=== PATIENT | female | born 1940 | race Caucasian/White ===

== ENCOUNTER 2016-11-10 09:01 | Outpatient (CLI) | payer MEDICARE, OTHER ==
[2015-09-04 06:01] VITALS: BMI 28.3
[~2016-11-10 09:01] MED LIST: ASPIRIN325 MG PO; BETAPACE 80 MG80 MG PO; COZAAR50 MG PO; CRESTOR10 MG PO; ECOTRIN81 MG PO; EFFIENT10 MG PO; IMDUR60 MG PO; ISOSORBIDE MONO60 M1 PO; Imdur PO; K-TAB10 MEQ PO; KLOR-CON 1010 MEQ PO; LASIX20 MG PO; LASIX40 MG PO; NORVASC2.5 MG PO; NORVASC5 MG PO; POTASSIUM CHLO10 ME1 PO; PREDNISONE20 MG PO; PRILOSEC20 MG PO; VITAMIN D10000 UNI1 PO; ZANTAC150 MG PO
== END 2016-11-10 11:10 ==
LOC: D.MAMMO 09:01
DX: Z12.31 Encounter for screening mammogram for malignant neoplasm of breast (principal)

== ENCOUNTER → 2018-04-05 09:23 | Outpatient (CLI) | payer MEDICARE, OTHER ==
[2015-09-04 06:01] VITALS: BMI 28.3
== END | disposition home or self-care (01) ==
LOC: D.MRI 09:23
DX: R41.3 Other amnesia (principal)

== ENCOUNTER → 2018-04-06 08:47 | Outpatient (CLI) | payer MEDICARE, OTHER ==
[2015-09-04 06:01] VITALS: BMI 28.3
--- NOTE | ~2018-04-06 | ST ---
PATIENT:ELVIN MAYS MEDICAL RECORD: [id number] SEX: F LOCATION:[facility] ORDER #: ADMISSION DATE: 04/06/18 AGE OF PATIENT: 77 REFERRING PHYSICIAN: INTERPRETING PHYSICIAN: ISAAC MEDRANO MD DATE OF SERVICE: 04/06/2018 PROCEDURE: Nuclear stress test. INDICATIONS: Angina, coronary artery disease, shortness of breath, hypertension. She was exercised on standard Lexiscan protocol with 33 mCi of sestamibi injected at peak stress. Rest images were done previously with 11 mCi. FINDINGS: Gated SPECT reveals preserved ejection fraction at 87% with good wall motion and thickening and brightening throughout all segments. SPECT imaging Cardiolite was used as myocardial fusion agent. There is homogeneous uptake throughout all segments at rest and stress with no evidence of inducible ischemia or previous infarction. OVERALL IMPRESSION: 1. This is a normal nuclear stress test with no evidence of inducible ischemia or previous infarction. 2. Gated SPECT reveals a preserved ejection fraction at 87%. In this patient with ongoing symptomatology, the current scan does not suggest the presence of hemodynamically significant coronary artery disease. Evaluate noncardiac etiology of chest pain. TRANSINT:[id number] Voice Confirmation ID: [id number] DOCUMENT ID: [id number] ISAAC MEDRANO MD CC: GEOVANNY HELM [id number] DICTATION DATE: 04/06/18 1541 ELECTRICAL ACCESSORIES I ASSEMBLER: 04/07/18 0352 DEP CLI 04/06/[address] [address]
== END | disposition home or self-care (01) ==
LOC: D.HCCARDIO 08:47
DX: I25.10 Atherosclerotic heart disease of native coronary artery without angina pectoris (principal)

== ENCOUNTER 2018-11-20 10:48 | Outpatient (CLI) | payer MEDICARE, OTHER ==
[~2018-11-20] VITALS: Ht 152.4 cm; Wt 65.9 kg
--- NOTE | ~2018-11-20 | HEMODYNAMI ---
PATIENT:ELVIN MAYS MEDICAL RECORD: [id number] : 40 LOCATION:D.CAT ADMISSION DATE: 11/20/18 Generatedon:11/20/201812:58 Patient name: ELVIN MAYS Patient #: [id number] SSN: : 1940 Date of study: 11/20/2018 Page: Of Hemodynamic Procedure Report Patient Data Patient Demographics Procedure consent was obtained First Name: ELVIN Gender: Female Last Name: DAVON : 1940 Middle Initial: C Age: 78 year(s) Patient #: [id number] Race: Ethnicity: or Additional ID: [id number] Contact details [address]: [address] [place] [address] rd State: [place] City: [place] Zip code: [address] Past Medical History History of disease Date Diagnosis Comments CAD Hypertension Allergies Allergen Reaction Date Comments Reported Other 09/04/2015 plavix,contrast,morphine,clopidogrel allergy bisulfate Admission Admission Data Admission Date: 11/20/2018 Admission Time: 10:48 Procedure Procedure Types Cath Procedure Diagnostic Procedure Cardioversion External Procedure Description Procedure Date Procedure Date: 11/20/2018 Procedure Start Time: 12:33 Procedure End Time: 12:57 Procedure Staff Name Function Rm Hyman MD Performing Physician Steven Gama RT Monitor Alina Zacarias RN Nurse Michael Boone CRNA Additional personnel Procedure Medications Medication Administration Route Dosage 0.9% NaCl I.V. 100 ml/hr Oxygen etCO2 Nasal cannula 2 l/min Refer to Anesthesia Notes for Sedation Medications Hemodynamics Rest Heart Rate: 42 (bpm) Snapshots Pre Cath Intra NCS Post Cath Vital Signs Time Heart Resp SPO2 etCO2 NIBP (mmHg) Rhythm Pain Sedation Rate (ipm) (%) (mmHg) Status Level (bpm) 12:23:13 84 25 97 35 125/67(93) A-Fib 0 (11) 10(A) , No pain 12:27:25 72 15 99 36 120/79(112) A-Fib 0 (11) 10(A) , No pain 12:32:24 40 21 100 23.2 75/41(49) SB 0 (11) 5(A) , No pain 12:35:04 40 30 99 13.5 81/67(78) SB 0 (11) 5(A) , No pain 12:38:49 42 22 99 19.7 77/46(60) SB 0 (11) 5(A) , No pain 12:41:47 37 29 96 1.5 69/30(52) SB 0 (11) 5(A) , No pain 12:45:42 36 29 98 35.2 66/39(51) SB 0 (11) 5(A) , No pain 12:49:50 52 10 94 13.5 72/39(68) SB 0 (11) 10(A) , No pain 12:53:30 54 24 96 16.5 113/69(101) SB 0 (11) 10(A) , No pain 12:56:42 54 26 96 0 124/69(100) SB 0 (11) 10(A) , No pain Medications Time Medication Route Dose Verified Delivered Reason Notes Effective ness by by 12:25:44 0.9% NaCl I.V. 100 Rm Alina ml/hr Yenni Zacarias RN 12:25:50 Oxygen etCO2 2 Rm Fuller used for Nasal l/min Yenni Zacarias procedure cannula RN 12:25:55 Refer to Rm Abdalla Anesthesia Yenni Hyman MD Notes for Sedation Medications Procedure Log Time Note 12:19:49 Diagnostic Cath Status : Cardioversion 12:21:11 Time tracking: Regular hours (M-F 7:00 - 5:00) 12:21:17 Plan of Care:Hemodynamics will remain stable., Cardiac rhythm will remain stable., Comfort level will be maintained., Respiratory function will remain adequate., Patient/ family verbilizes understanding of procedure., Procedure tolerated without complication., Recovers from procedure without complications.. 12:21:24 Patient received from Pre/Post Procedure Room to CCL 1 Alert and oriented. Tansferred to table in Supine position. 12:21:29 Signed procedure consent form obtained from patient. 12:21:30 Warm blankets applied, and evangelina hugger turned on for patient comfort. 12:21:31 Correct patient and procedure confirmed by team. 12:21:32 ECG and BP/O2 sat monitors applied to patient. 12:22:06 Vital chart was started 12:22:14 Rhythm: atrial fibrillation 12:22:45 H&P Date Dictated: 10/31/2018 Within 30 days and on chart.. 12:22:47 Pre-procedure instructions explained to patient. 12:22:48 Pre-op teaching completed and patient verbalized understanding. 12:22:53 Patient NPO since Midnight. 12:24:10 ----Pre-sedation anethsthesia assessment.---- 12:24:12 Previous problem with sedation/anesthesia? No ? 12:24:15 Snore? Yes 12:24:17 Sleep apnea? No 12:24:19 Deviated septum? No 12:24:20 Opens mouth fully? Yes 12:24:21 Sticks out tongue? Yes 12:24:25 Airway obstruction? No ? 12:24:28 Dentures? No ? 12:24:53 IV patent on arrival in left forearm with 0.9% NaCl at [facility]. 12:25:44 0.9% NaCl 100 ml/hr I.V. was administered by Alina Zacarias RN; ; 12:25:50 Oxygen 2 l/min etCO2 Nasal cannula was administered by Alina Zacarias RN; used for procedure; 12:25:55 Refer to Anesthesia Notes for Sedation Medications was administered by Rm Hyman MD; ; 12:26:34 ------Cardioversion------ 12:26:35 Quick combo pads placed on patients chest and back. 12:27:04 Michael Boone CRNA present and monitoring patient for TIVA. 12:27:15 Alarms reviewed by Jenn Petersen 12:28:00 --------ALL STOP TIME OUT------ 12:28:01 Final Timeout: patient, procedure, and site verified with staff and physician. All members of the team are in agreement. 12:28:20 Defibrillator synced and charged to 275 Joules. 12:28:25 Sedation plan: TIVA Medication:Propofol 12:29:25 Shock delivered. 12:30:58 Full Disclosure recording started 12:31:36 Fire Safety Assessment: C--Open oxygen or nitrous oxide is being used. 12:31:41 Physical assessment completed. ASA score P 2 - A patient with mild systemic disease as per Rm Hyman MD. 12:33:58 Procedure started. 12:34:38 Procedure ended.(Physican Out) 12:34:50 Baseline sample Acquired. 12:49:29 Post procedure rhythm: sinus bradycardia 12:49:34 Patient needs reinforcement of post procedure teaching. 12:55:50 Procedure and supply charges have been captured, reviewed, submitted and are correct. 12:55:51 Vital chart was stopped 12:55:54 See physician's report for complete and final results. 12:55:58 Report given to Pre/Post Procedure Room. 12:57:37 Patient transfered to Pre/Post Procedure Room with Stretcher. 12:57:40 Procedure ended. 12:57:40 Full Disclosure recording stopped 12:57:46 End room use (Document Last) Signature Audit Win[place] Stage Time Signature Unsigned Intra-Procedure 11/20/2018 Steven Gama 12:58:10 PM RT(R) (CV) Signatures Performing Physician : Signature : Rm Hyman MD Date : Time : Monitor : Steven Gama RT Signature : Date : Time : Nurse : Alina Zacarias RN Signature : Date : Time : [address] [address] [place] [address]
[2018-11-20] MEDS ORDERED: BAYER CHEWABLE81 MG PO (11:07)
[2018-11-20] MEDS ORDERED: BETAPACE 80 MG80 MG PO (11:08)
[2018-11-20] MEDS ORDERED: XARELTO10 MG PO (11:09)
[2018-11-20 11:18] VITALS: BP 133/74; Ht 152.4 cm; Wt 65.9 kg
[2018-11-20 11:28] LABS: BASOPHILS 0.5 % (0-2); EOSINOPHILS 1.4 % (0-7); HEMATOCRIT 41.8 % (36.0-48.0); HEMOGLOBIN 14.2 g/dL (12-16); IMMATURE GRANULOCYTES 0.3 % (0-5); LYMPHOCYTES 17.2 % (15-50); MCH 31.3 pg (26.0-34.0); MCV 92.1 fL (80.0-100.0); MEAN PLATELET VOLUME 9.1 fL (7.4-10.4); MONOCYTES 9.4 % (2-11); NEUTROPHILS 71.2 % (40-80); PLATELET COUNT 249 10x3/uL (130-400); RBC 4.54 10x6/uL (4.00-5.40); RDW 14.7 % (11.5-14.5); WBC 7.9 10x3/uL (4.8-10.8)
[2018-11-20 11:38] LABS: INR 1.36 (0.85-1.17); PROTIME 16.2 SECONDS (11.6-15.0)
[2018-11-20 11:40] LABS: CALC OSMOLALITY 263 mosm/kg (275-300); CALCIUM 9.5 mg/dL (8.5-10.1); CARBON DIOXIDE 33.4 mmol/L (21.0-32.0); CHLORIDE - SERUM 95 mmol/L (98-107); CREATININE - SERUM 0.7 mg/dL (0.6-1.3); GLUCOSE 103 mg/dL (74-106); POTASSIUM - SERUM 4.4 mmol/L (3.5-5.1); SODIUM 132 mmol/L (136-145); UREA NITROGEN 10 mg/dL (7-18); eGFR NON AFRICAN AMERICAN 86 mL/min (90-120)
--- NOTE | 2018-11-20 13:05 | NUR ---
PT RECEIVED VIA STRETCHER FROM AIRCRAFT TECHNICIAN POST CARDIOVERSION. PT IS MORE CONFUSED THAN FROM ADMISSION PER Sonia COOMBS RN. SHE BELIEVES IT IS DUE TO THE ANSETHESIA, BUT PT DOES HAVE SOME CONFUSION FROM HER PREVIOUS STROKE BUT IS MORE AWARE NOW THAT SHE IS IN RECOVERY. SHE IS ORIENTED TO PLACE AND TIME. HR 47, BP 83/45, O2 SAT 96 ON 2L/NC. IV PATENT INFUSING VIA ORDERS. CALL LIGHT IN REACH, FAMILY AT BEDSIDE.
--- NOTE | 2018-11-20 13:30 | NUR ---
PT AWAKE, RESTING COMFORTABLY. HR 45. PT DENIES PAIN OR DISCOMFORT, OFFERED SANDWICH TRAY, PT STATES NOT HUNGRY AT THIS TIME. CALL LIGHT IN REACH, FAMILY AT BEDSIDE
--- NOTE | 2018-11-20 13:45 | NUR ---
PT RESTING COMFORTABLY, DENIES PAIN OR NEEDS AT THIS TIME. FAMILY REMAINS AT BEDSIDE. VSS. CALL LIGHT IN REACH. DISCHARGE INSTRUCTIONS REVIEWED W PT AND FAMILY, ALL VERBALIZED UNDERSTANDING.
--- NOTE | 2018-11-20 14:05 | NUR ---
IV REMOVED W CATH INTACT, MONITORS REMOVED AND PT UP TO DRESS FOR DISCHARGE W ASSIST FROM DAUGHTER.
--- NOTE | 2018-11-20 14:10 | NUR ---
PT DISCHARGED VIA WC TO PRIVATE VEHICLE W AND DAUGHTER WITH ALL BELONGINGS.
--- NOTE | 2018-11-27 11:09 | OP ---
PATIENT NAME: ELVIN MAYS MEDICAL RECORD: [id number] :40 LOCATION:D.CAT ADMISSION DATE: SURGEON: ISAAC MEDRANO MD DATE OF OPERATION: 11/20/2018 PROCEDURE: DC cardioversion. INDICATION: Atrial fibrillation. PROCEDURE IN DETAIL: IV conscious sedation was per anesthesia. Continuous heart rate, O2 saturation, blood pressure monitoring all undertaken, all of which remained stable. She received 1 shock restoring sinus rhythm. OVERALL IMPRESSION: Successful DC cardioversion from atrial fibrillation to sinus rhythm. TRANSINT:[id number] Voice Confirmation ID: [id number] DOCUMENT ID: [id number] ISAAC MEDRANO MD at 1109 CC: [id number] DICTATION DATE: 11/20/18 1237 BICYCLE REPAIRER: 11/20/18 1257 DEP CLI 11/20/18 [id number] [place] [address]
== END 2018-11-20 14:10 | disposition home or self-care (01) ==
LOC: D.CATH 10:48
PROVIDERS: ATTEND Internal Medicine Interventional Cardiology
DX: I48.91 Unspecified atrial fibrillation (principal)

== ENCOUNTER → 2018-12-10 15:45 | Outpatient (CLI) | payer MEDICARE, OTHER ==
[2018-11-20 11:18] VITALS: BMI 28.3
[~2018-12-10 15:45] MED LIST changes: +ATIVAN0.5 MG PO; +BAYER CHEWABLE81 MG PO; +HYDROCODON-ACE1 EAC7 PO; +K-DUR20 MEQ PO; +LEVOFLOXAC750 MG/150 IV; +MAXIPIME 2 GM/D52 G1 IV; +MELATONIN 3 MG1 TAB PO; +VANCOMYCIN 1 GM/1 G1 IV; +XARELTO10 MG PO
== END | disposition home or self-care (01) ==
LOC: D.RAD 15:45
PROVIDERS: ATTEND Nurse Practitioner
DX: I48.0 Paroxysmal atrial fibrillation (principal); R06.00 Dyspnea, unspecified

== ENCOUNTER 2018-12-14 10:18 | Inpatient (IN) | payer MEDICARE, OTHER ==
[2018-12-14] VITALS (7 sets, daily range): BP systolic 126–176; BP diastolic 54–79; BMI 29.7
[~2018-12-14] VITALS: Ht 152.4 cm; Wt 63.2 kg
--- NOTE | ~2018-12-14 | HEMODYNAMI ---
PATIENT:ELVIN MAYS MEDICAL RECORD: [id number] : 40 LOCATION:[facility] [place] [facility] D.[address]# [id number] ADMISSION DATE: 12/14/18 Generatedon:12/18/201815:58 Patient name: ELVIN MAYS Patient #: [id number] SSN: : Date of study: 12/18/2018 Page: Of Hemodynamic Procedure Report Patient Data Patient Demographics Procedure consent was obtained First Name: ELVIN Gender: Female Last Name: DAVON : 1940 [facility] Initial: C Age: 78 year(s) Patient #: [id number] Race: Ethnicity: or Additional ID: [id number] Contact details [address]: [address] [place] [address] rd State: [place] City: [place] Zip code: [address] Past Medical History History of disease Date Diagnosis Comments CAD Hypertension Allergies Allergen Reaction Date Comments Reported Other 09/04/2015 plavix,contrast,morphine,clopidogrel allergy bisulfate Other 12/16/2018 IODINE DYE, MORPHINE, PLAVIX allergy Other 12/18/2018 IODINE, CLOPIDIGREL, MORPHINE allergy Admission Admission Data Admission Date: 12/14/2018 Admission Time: 13:04 Room #: [facility]7 Weight (lbs.): 142 Weight (kg.): 64.41 Lab Results Lab Result Date: 12/16/2018 Lab Result Time: 0:00 Biochemistry Name Units Result Min Max BUN mg/dl 9 --(*---)-- 7 18 Creatinine mg/dl 0.6 --(*---)-- 0.6 1.3 CBC Name Units Result Min Max Hematocrit % 39.5 -*(----)-- 42 54 Hemoglobin g/dl 12.8 -*(----)-- 13.5 17.5 Procedure Procedure Types Cath Procedure Diagnostic Procedure Sedation Charges Moderate Sedation up to 15 minutes Procedure Description Procedure Date Procedure Date: 12/18/2018 Procedure Start Time: 15:36 Procedure End Time: 15:58 Procedure Staff Name Function Zach Patel MD Performing Physician Jayjay Delgado MD Assisting physician Tess Moy RT Monitor Finesse Gomez RT Scrub Debora Connolly RT Scrub Alina Zacarias RN Nurse Procedure Data Cath Procedure Contrast Material Contrast Material Type Amount (ml) Isovue 300 20 Estimated blood loss: 10 ml Procedure Complications No complications Procedure Medications Medication Administration Route Dosage 0.9% NaCl I.V. 100 ml/hr Oxygen etCO2 Nasal cannula 2 l/min Lidocaine 1% added to field 20 Ancef (1Gm/50ml NS) I.V.P.B 1 g Ancef Irrigation Topical 1 g (1gm/500ml NS) Versed I.V. 2 mg Fentanyl I.V. 50 mcg Fentanyl I.V. 25 mcg Benadryl I.V. 50 mg Solumedrol I.V. 125 mg Hemodynamics Rest HGB: 12.8 (g/dl) Heart Rate: 109 (bpm) Snapshots Pre Cath Intra NCS Post Cath Vital Signs Time Heart Resp SPO2 etCO2 NIBP (mmHg) Rhythm Pain Sedation Rate (ipm) (%) (mmHg) Status Level (bpm) 15:26:14 105 17 98 31.4 124/83(97) A-Fib 0 (11) 10(A) , No pain 15:30:22 103 18 98 16.4 113/72(104) A-Fib 0 (11) 10(A) , No pain 15:34:30 101 20 97 24.7 99/61(81) A-Fib 0 (11) 10(A) , No pain 15:38:30 118 20 98 15.7 115/68(91) A-Fib 0 (11) 10(A) , No pain 15:43:25 111 27 98 31.4 130/68(101) A-Fib 0 (11) 9(A) , No pain 15:47:34 101 26 98 27 120/67(96) A-Fib 0 (11) 9(A) , No pain 15:51:40 125 25 97 2.2 123/74(93) A-Fib 0 (11) 9(A) , No pain 15:56:33 141 19 97 11.2 120/71(94) A-Fib 0 (11) 10(A) , No pain Medications Time Medication Route Dose Verified Delivered Reason Notes Effecti veness by by 15:28:30 0.9% NaCl I.V. 100 Zach Alina used for ml/hr Amanda Erll procedure MD DWYER 15:28:37 Oxygen etCO2 2 Zach Alina used for Nasal l/min Amanda Rell procedure cannula MD DWYER 15:28:49 Lidocaine added 20ml Jayjay Keeian for local 1% to vial Twan Delgado MD anesthetic field x 2 15:29:01 Ancef I.V.P.B 1 g Mosque Alina used for (1Gm/50ml Twan Zacarias procedure NS) RN 15:29:08 Ancef Topical 1 g Mosque Mosque used for Irrigation Twan Delgado MD procedure (1gm/500ml NS) 15:32:51 Versed I.V. 2 mg Zach Alina for Amanda Rell sedation MD DWYER 15:32:58 Fentanyl I.V. 50 Zach Alina for mcg Amanda Rell sedation MD DWYER 15:42:14 Fentanyl I.V. 25 Zach Alina for mcg Amanda Rell sedation MD DWYER 15:48:15 Benadryl I.V. 50 mg Zach Fuller used for Amanda Rell procedure MD DWYER 15:48:24 Solumedrol I.V. 125 Zach Palominoyla used for mg Maanda Rell procedure MD DWYERsenior accountant analyst Log Time Note 15:00:14 Finesse Gomez RT(R) sent for patient. Start room use. 15:06:58 Patient Weight : 142 lbs 15:08:05 Signed procedure consent form obtained from patient. 15:08:07 Procedure Status Urgent Heart Cath (IP). 15:08:08 Time tracking: Regular hours (M-F 7:00 - 5:00) 15:08:12 Plan of Care:Hemodynamics will remain stable., Cardiac rhythm will remain stable., Comfort level will be maintained., Respiratory function will remain adequate., Patient/ family verbilizes understanding of procedure., Procedure tolerated without complication., Recovers from procedure without complications.. 15:09:13 Medtronic outside sales representative insurance CHRISTIANO CARLOS present for procedure. 15:09:18 Use device set TWAN PPM 15:09:19 2-0 Ticron Multipack ([id number]) opened to sterile field. 15:09:20 3-0 Vicryl Single Pack [id number] opened to sterile field. 15:09:20 5-0 Monocryl PS2 [id number] opened to sterile field. 15:: Cautery Tip Leak Hunter opened to sterile field. 15:: Cautery Pushbutton Pencil opened to sterile field. 15:: Mepilex Dressing ([id number]) opened to sterile field. 15::29 Immobilizer Large opened to sterile field. 15::30 Medtronic 4074-52 PPM Lead opened to sterile field. 15:09:31 Medtronic 4574-45 PPM Lead opened to sterile field. 15::[address] Generator [id number] opened to sterile field. 15:15:30 Patient received from Med II to CCL 3 Alert and oriented. Tansferred to table in Supine position. 15:15:31 Warm blankets applied, and evangelina hugger turned on for patient comfort. 15:15:31 Correct patient and procedure confirmed by team. 15:15:32 ECG and BP/O2 sat monitors applied to patient. 15:25:10 Vital chart was started 15:25:12 Baseline sample Acquired. 15:25:16 Rhythm: atrial fibrillation 15:25:16 Full Disclosure recording started 15:25:17 Pre-procedure instructions explained to patient. 15:25:17 Pre-op teaching completed and patient verbalized understanding. 15:25:19 Family in patients room. 15:25:20 Patient NPO since Midnight. 15:27:34 Patient allergic to Other allergyIODINE, CLOPIDIGREL, MORPHINE 15:27:36 Is patient on blood thinner?No 15:27:38 Patient diabetic? No. 15:28:30 0.9% NaCl 100 ml/hr I.V. was administered by Alina Zacarias RN; used for procedure; 15:28:37 Oxygen 2 l/min etCO2 Nasal cannula was administered by Alina Zacarias RN; used for procedure; 15::49 Lidocaine 1% 20ml vial x 2 added to field was administered by Jayjay Delgado MD; for local anesthetic; 15:29:01 Ancef (1Gm/50ml NS) 1 g I.V.P.B was administered by Alina Zacarias RN; used for procedure; 15:29:08 Ancef Irrigation (1gm/500ml NS) 1 g Topical was administered by Jayjay Delgado MD; used for procedure; 15:29:24 Previous problem with sedation/anesthesia? No ? 15:29:25 Snore? No 15:29:26 Sleep apnea? No 15:29:27 Deviated septum? No 15:29:27 Opens mouth fully? Yes 15:29:29 Sticks out tongue? Yes 15:29:31 Airway obstruction? No ? 15:29:34 Dentures? No ? 15:29:42 IV patent on arrival in right forearm with 0.9% NaCl at [facility]. 15::58 Lab results completed and on chart. 15:30:01 Right chest area was prepped with chlora-prep and draped in sterile fashion 15:30: Alarms reviewed by R. N. 15:30: Sharps counted by scrub and verified by R.N. 15:32:15 --------ALL STOP TIME OUT------ 15:32:15 Final Timeout: patient, procedure, and site verified with staff and physician. All members of the team are in agreement. 15:32:20 Right chest site verified by team. 15:32:23 Fire Safety Assessment: A--An alcohol-based skin anteseptic being used preoperatively., B--The operative or invasive procedure is being performed above the xiphoid process or in the oropharynx., C--Open oxygen or nitrous oxide is being used. 15:32:26 Physical assessment completed. ASA score P 2 - A patient with mild systemic disease as per Zach Patel MD. 15:32:30 Sedation plan: IV Moderate Sedation Medication:Versed, Fentanyl 15:32:51 Versed 2 mg I.V. was administered by Alina Zacarias RN; for sedation; ::58 Fentanyl 50 mcg I.V. was administered by Alina Zacarias RN; for sedation; 15:35:05 Procedure started. 15:36:18 Pre sharps counted by scrub and verified by RN: Sutures: 7; Sponges: 5; Stick needles: 2; Skin needles: 2; Blade: 1; Cautery: 1 15:36:20 Grounding pad site Left thigh. 15:36:21 Grounding pad site free from injury. 15:36:25 Lidocaine 1% was administered to right subclavicular area by Jayjay Delgado MD . 15:37:27 Incision made to right subclavicular area. 15:41:14 Generator pocket made/opened. 15:41:17 Right subclavian vein accessed with 7Fr Peel Away Sheath. 15:41:20 Right subclavian vein accessed with 7Fr Peel Away Sheath. 15:42:14 Fentanyl 25 mcg I.V. was administered by Alina Zacarias RN; for sedation; 15:44:18 GLIDE WIRE ANGLE 260cm ([id number]) opened to sterile field. 15:47:13 GLIDE WIRE USED TO ADVANCE SHEATH 15:48:15 Benadryl 50 mg I.V. was administered by Alina Zacarias RN; used for procedure; 15:48:24 Solumedrol 125 mg I.V. was administered by Alina Zacarias RN; used for procedure; 15:48:59 UNABLE TO PROCEED WITH LEADS PER [facility]. DUE TO ANATOMY 15:49:43 Subcutaneous closure was completed with 3-0 vicryl. 15:49:48 Skin closure was completed with 5-0 monocryl. 15:50:18 Rt Chest incision was dressed with Mepilex dressing. 15:53:55 Post sharps counted by scrub and verified by RN: Sutures: 7; Sponges: 5; Stick needles: 2; Skin needles: 2; Blade: 1; Cautery: 1 15:54:03 Contrast amount:Isovue 300 20ml. 15:54:06 Sharps counted by scrub and verified by R.N. 15:54:09 Post-procedure physical assessment completed. ASA score P 2 - A patient with mild systemic disease as per Zach Patel MD. 15:54:12 Post procedure rhythm: atrial fibrillation 15:54:15 Estimated blood loss: 10 ml 15:54:22 Procedure ended.(Physican Out) 15:54:38 Post procedure instruction explained to patient.Patient verbalizes understanding. 15:54:39 Patient needs reinforcement of post procedure teaching. 15:55:10 Procedure type changed to Cath procedure, Diagnostic procedure, Sedation Charges, Moderate Sedation up to 15 minutes 15:56:11 Procedure and supply charges have been captured, reviewed, submitted and are correct. 15:56:13 Procedure Complication : No complications 15:57:55 Vital chart was stopped 15:57:55 See physician's report for complete and final results. 15:57:58 Report given to Med II. 15:58:00 Patient transfered to Med II with Bed. 15:58:03 Procedure ended. 15:58:03 Full Disclosure recording stopped 15:58:08 End room use (Document Last) Device Usage Item Name Manufacture Quantity Catalog Hospital Part Current Minima l Lot# / Serial# Number Charge Number Stock Stock Code 2-0 Ticron Ethicon 1 [id number] 5 Multipack ([id number]) 3-0 Vicryl Ethicon 1 [id number] 232729 634857 768390 5 Single Pack [id number] 5-0 Monocryl Ethicon 1 [id number] 226082 965412 083591 5 PS2 Y495G Cautery Tip Microtek 1 [id number] 440441 440793 023061 5 Leak [employer] Cautery Microtek 1 [id number] 432148 30319 418101 5 Pushbutton Medical Inc. Pencil Mepilex Cardinal 1 [id number] 867278 762938 669705 5 [facility] ([id number]) Immobilizer Cardinal 1 [id number] 092245 936130 065170 5 Large Health Medtronic Medtronic 1 4074-52 016200 202829 412976 5 [id number] 4074-52 PPM EXP: Lead 11/25/2019 [id number] Medtronic Medtronic 1 4574-45 309534 251760 744001 5 [id number] 4574-45 PPM EXP:02/22/2020 Lead [id number] Medtronic Medtronic 1 [id number] 249606 [id number] [id number] 5 [id number] KATELIN XT [id number] Generator [id number] EXP:1 [id number] 05/31/2019 GLIDE WIRE Terumo 1 [id number] 968663 218267 416059 5 ANGLE 260cm ([id number]) Signature Audit [place] Stage Time Signature Unsigned Intra-Procedure 12/18/2018 Tess Moy 3:58:46 PM RT(R) Signatures Performing Physician : Signature : Zach Patel MD Date : Time : Monitor : Tess Moy Signature : RT Date : Time : Nurse : Alina Rell RN Signature : Date : Time : [address] [place] [address]
--- NOTE | ~2018-12-14 | HEMODYNAMI ---
PATIENT:ELVIN MAYS MEDICAL RECORD: [id number] : 40 LOCATION:[facility] D.[address] [facility]# [id number] ADMISSION DATE: 12/14/18 Generatedon:12/16/201810:07 Patient name: ELVIN MAYS Patient #: [id number] SSN: : Date of study: 12/16/2018 Page: Of Hemodynamic Procedure Report Patient Data Patient Demographics Procedure consent was obtained First Name: ELVIN Gender: Female Last Name: DAVON : 1940 [facility] Initial: C Age: 78 year(s) Patient #: [id number] Race: Ethnicity: or Additional ID: [id number] Contact details Address: [address] [place] [address] rd State: [place] City: [place] Zip code: [address] Past Medical History History of disease Date Diagnosis Comments CAD Hypertension Allergies Allergen Reaction Date Comments Reported Other 09/04/2015 plavix,contrast,morphine,clopidogrel allergy bisulfate Other 12/16/2018 IODINE DYE, MORPHINE, PLAVIX allergy Admission Admission Data Admission Date: 12/14/2018 Admission Time: 13:04 Room #: D.2117 Weight (lbs.): 142 Weight (kg.): 64.41 Lab Results Lab Result Date: 12/16/2018 Lab Result Time: 0:00 Biochemistry Name Units Result Min Max BUN mg/dl 9 --(*---)-- 7 18 Creatinine mg/dl 0.6 --(*---)-- 0.6 1.3 CBC Name Units Result Min Max Hematocrit % 39.5 -*(----)-- 42 54 Hemoglobin g/dl 12.8 -*(----)-- 13.5 17.5 Procedure Procedure Types Cath Procedure Diagnostic Procedure Sedation Charges Moderate Sedation up to 30 minutes Procedure Description Procedure Date Procedure Date: 12/16/2018 Procedure Start Time: 9:27 Procedure End Time: 10:05 Procedure Staff Name Function Zach Patel MD Performing Physician Tess Moy RT Monitor Alina Zacarias RN Nurse Debora Connolly RT Scrub Finesse Gomez RT Scrub Clayton Cordova MD Assisting physician Procedure Data Cath Procedure Fluoroscopy Diagnostic fluoroscopy Total fluoroscopy Time: 4.1 time: 4.1 min min Diagnostic fluoroscopy Total fluoroscopy dose: 65 dose: 65 mGy mGy Contrast Material Contrast Material Type Amount (ml) Isovue 300 30 Estimated blood loss: 10 ml Procedure Complications No complications Procedure Medications Medication Administration Route Dosage 0.9% NaCl I.V. 100 ml/hr Oxygen etCO2 Nasal cannula 2 l/min Ancef (1Gm/50ml NS) I.V.P.B 1 g Ancef Irrigation Topical 1 g (1gm/500ml NS) Lidocaine 1% with added to field 20 ml Epi Bupivacaine 0.5% added to field 20 ml Versed I.V. 2 mg Fentanyl I.V. 50 mcg Benadryl I.V. 50 mg Solumedrol I.V. 125 mg Fentanyl I.V. 50 mcg Hemodynamics Rest HGB: 12.8 (g/dl) Heart Rate: 113 (bpm) Snapshots Pre Cath Intra NCS Post Cath Vital Signs Time Heart Resp SPO2 etCO2 NIBP (mmHg) Rhythm Pain Sedation Rate (ipm) (%) (mmHg) Status Level (bpm) 9:04:26 102 20 97 33.1 134/75(103) A-Fib 0 (11) 10(A) , No pain 9:08:36 113 26 97 27.8 149/83(110) A-Fib 0 (11) 10(A) , No pain 9:12:42 111 18 98 30.6 118/76(84) A-Fib 0 (11) 10(A) , No pain 9:17:41 127 16 97 2.2 Measuring A-Fib 0 (11) 10(A) , No pain 9:20:51 114 15 97 34.6 127/78(92) A-Fib 0 (11) 10(A) , No pain 9:24:59 121 16 97 36 135/78(106) A-Fib 0 (11) 10(A) , No pain 9:29:40 101 15 96 48.2 143/84(113) A-Fib 0 (11) 9(A) , No pain 9:33:58 122 16 96 36.4 112/68(86) A-Fib 0 (11) 9(A) , No pain 9:38:02 121 15 97 5.2 128/78(99) A-Fib 0 (11) 9(A) , No pain 9:42:11 121 27 97 26.7 148/78(99) A-Fib 0 (11) 9(A) , No pain 9:47:10 155 29 96 8.2 Measuring A-Fib 0 (11) 9(A) , No pain 9:47:16 134 29 96 8.2 127/72(87) A-Fib 0 (11) 9(A) , No pain 9:51:28 125 19 97 7.5 122/70(88) A-Fib 0 (11) 9(A) , No pain 9:55:36 126 17 98 7.5 120/76(92) A-Fib 0 (11) 10(A) , No pain 9:59:42 126 18 96 8.2 110/74(91) A-Fib 0 (11) 10(A) , No pain 10:03:48 142 29 93 8.2 119/69(89) A-Fib 0 (11) 10(A) , No pain Medications Time Medication Route Dose Verified Delivered Reason Notes Effective ness by by 9:04:34 0.9% NaCl I.V. 100 Zach Alina used for ml/hr Amanda Rell procedure MD DWYER 9:04:41 Oxygen etCO2 2 Zach Alina used for Nasal l/min Amanda Rell procedure cannula MD DWYER 9:05:10 Ancef I.V.P.B 1 g Zach Alina used for (1Gm/50ml Amanda Rell procedure NS) MD DWYER 9:05:19 Ancef Topical 1 g Zach Alina used for Irrigation Amanda Rell procedure (1gm/500ml MD DWYER NS) 9:07:19 Lidocaine added 20 ml Clayton Arnold for local 1% with Epi to Breving Breving anesthetic field MD KELLEY 9:07:31 Bupivacaine added 20 ml Clayton Arnold for local 0.5% to Bre[place] Breving anesthetic field MD KELLEY 9:24:38 Fentanyl I.V. 50 Zach Alina for mcg Amanda Rell sedation MD DWYER 9:25:18 Versed I.V. 2 mg Zach Alina for Amanda Rell sedation MD RN 9:30:59 Fentanyl I.V. [address] Zach Alina for mcg [facility] Hugh Zacarias sedation RN 9:37:50 Benadryl I.V. 50 mg Zach Fuller used for [facility] Hugh Zacarias procedure RN 9:43:27 Solumedrol I.V. 125 Zach Fontanaa Per mg [facility] Hugh Zacarias physician tile setter Log Time Note 8:20:28 Finesse Gomez RT(R) sent for patient. Start room use. 8:20:30 Time tracking: Call back (After hours or weekends) 8:20:35 Plan of Care:Hemodynamics will remain stable., Cardiac rhythm will remain stable., Comfort level will be maintained., Respiratory function will remain adequate., Patient/ family verbilizes understanding of procedure., Procedure tolerated without complication., Recovers from procedure without complications.. 8:20:45 Use device set TWAN PPM 8:20:48 2-0 Ticron Multipack ([id number]) opened to sterile field. 8:20:49 3-0 Vicryl Single Pack [id number] opened to sterile field. 8:20:49 5-0 Monocryl PS2 Y495G opened to sterile field. 8:20:50 Cautery Tip Transcription Coordinator opened to sterile field. 8:20:50 Cautery Pushbutton Pencil opened to sterile field. 8:20:51 Mepilex Dressing ([id number]) opened to sterile field. 8:20:52 Immobilizer Large opened to sterile field. 8:37:52 Patient Weight : 142 lbs 8:39:26 Medtronic community engagement representative fedemonae silva present for procedure. 8:50:01 Patient allergic to Other allergyIODINE DYE, MORPHINE, PLAVIX 8:51:13 Lab Result : BUN 9 mg/dl 8:51:13 Lab Result : Creatinine 0.6 mg/dl 8:51:13 Lab Result : Hemoglobin 12.8 g/dl 8:51:13 Lab Result : Hematocrit 39.5 % 8:51:28 Procedure Status Urgent Heart Cath (IP). 8:51:35 Patient received from Med II to CCL 3 Alert and oriented. Tansferred to table in Supine position. 8:51:37 Signed procedure consent form obtained from patient. 8:51:38 Warm blankets applied, and evangelina hugger turned on for patient comfort. 8:51:38 Correct patient and procedure confirmed by team. 8:51:38 ECG and BP/O2 sat monitors applied to patient. 9:03:16 Vital chart was started 9:03:42 Baseline sample Acquired. 9:03:47 Rhythm: atrial fibrillation 9:03:49 Full Disclosure recording started 9:03:49 Pre-procedure instructions explained to patient. 9:03:49 Pre-op teaching completed and patient verbalized understanding. 9:03:51 Family in patients room. 9:03:53 Patient NPO since Midnight. 9:03:54 Is patient on blood thinner?No 9:03:56 Patient diabetic? No. 9:04:34 0.9% NaCl 100 ml/hr I.V. was administered by Alina Zacarias RN; used for procedure; 9:04:41 Oxygen 2 l/min etCO2 Nasal cannula was administered by Alina Zacarias RN; used for procedure; 9:05:10 Ancef (1Gm/50ml NS) 1 g I.V.P.B was administered by Alina Zacarias RN; used for procedure; 9:05:19 Ancef Irrigation (1gm/500ml NS) 1 g Topical was administered by Alina Zacarias RN; used for procedure; 9:06:16 Is the patient allergic to Iodine/contrast media? Yes. 9:06:18 Was the patient premedicated? Yes 9:07:08 Snore? No 9:07:10 Deviated septum? No 9:07:11 Opens mouth fully? Yes 9:07:12 Sticks out tongue? Yes 9:07:14 Airway obstruction? No ? 9:07:16 Dentures? No ? 9:07:19 Lidocaine 1% with Epi 20 ml added to field was administered by Clayton Cordova MD; for local anesthetic; 9:07:19 Patient pain scale 0/10 ?. 9:07:24 IV patent on arrival in left forearm with 0.9% NaCl at [facility]. 9:07:26 Lab results completed and on chart. 9:07:31 Bupivacaine 0.5% 20 ml added to field was administered by Clayton Cordova MD; for local anesthetic; 9:07:37 Left chest area was prepped with chlora-prep and draped in sterile fashion 9:07:38 Alarms reviewed by R. N. 9:07:38 Sharps counted by scrub and verified by R.N. 9:23:00 --------ALL STOP TIME OUT------ 9:23:01 Final Timeout: patient, procedure, and site verified with staff and physician. All members of the team are in agreement. 9:23:04 Left chest site verified by team. 9:23:08 Fire Safety Assessment: A--An alcohol-based skin anteseptic being used preoperatively., B--The operative or invasive procedure is being performed above the xiphoid process or in the oropharynx., C--Open oxygen or nitrous oxide is being used. 9:23:11 Physical assessment completed. ASA score P 2 - A patient with mild systemic disease as per Zach Patel MD. 9:23:14 Sedation plan: IV Moderate Sedation Medication:Versed, Fentanyl 9:24:38 Fentanyl 50 mcg I.V. was administered by Alina Zacarias RN; for sedation; 9:25:18 Versed 2 mg I.V. was administered by Alina Zacarias RN; for sedation; 9:26:34 Procedure started. 9:26:46 Pre sharps counted by scrub and verified by RN: Sutures: 15; Sponges: 5; Stick needles: 2; Skin needles: 2; Blade: 1; Cautery: 1 9:26:49 Grounding pad site Left thigh. 9:26:50 Grounding pad site free from injury. 9:27:09 Lidocaine 1% w/epi and Bupivacaine 0.5% was administered to left subclavicular area by Clayton Cordova MD . 9:29:11 Generator pocket made/opened. 9:30:59 Fentanyl 50 mcg I.V. was administered by Alina Zacarias RN; for sedation; 9:32:33 Left subclavian vein accessed with 9Fr Peel Away Sheath. 9:37:50 Benadryl 50 mg I.V. was administered by Alina Zacarias RN; used for procedure; 9:43:27 Solumedrol 125 mg I.V. was administered by Alina Zacarias RN; Per physician; 9:54:07 UNABLE TO PROCEED WITH LEAD PLACEMENT. WILL STOP PER DR. CORDOVA AND DR. GOTTLIEB 9:57:49 Subcutaneous closure was completed with 3-0 vicryl plus. 9:57:54 Skin closure was completed with 5-0 monocryl. 9:59:19 Contrast amount:Isovue 300 30ml. 10:03:38 Lt Chest incision was dressed with Mepilex dressing. 10:04:06 Procedure ended.(Physican Out) 10:04:21 Fluoroscopy time 04.10 minutes. 10:04:31 Fluoroscopy dose: 65 mGy 10:04:31 Flurop Dose total: 65 10:04:37 Sharps counted by scrub and verified by R.N. 10:04:41 Post-procedure physical assessment completed. ASA score P 2 - A patient with mild systemic disease as per Zach Patel MD. 10:04:44 Post procedure rhythm: atrial fibrillation 10:04:45 Estimated blood loss: 10 ml 10:04:47 Post procedure instruction explained to patient.Patient verbalizes understanding. 10:04:47 Patient needs reinforcement of post procedure teaching. 10:05:13 Procedure type changed to Cath procedure, Diagnostic procedure, Sedation Charges, Moderate Sedation up to 30 minutes 10:05:44 Procedure and supply charges have been captured, reviewed, submitted and are correct. 10:05:46 Procedure Complication : No complications 10:05:48 Vital chart was stopped 10:05:49 See physician's report for complete and final results. 10:05:51 Report given to Med II. 10:05:54 Patient transfered to Med II with Bed. 10:05:56 Procedure ended. 10:05:56 Full Disclosure recording stopped 10:05:59 End room use (Document Last) Device Usage Item Name Manufacture Quantity Catalog Hospital Part Current Minimal Lot# / Number Charge Number Stock Stock Serial# Code 2-0 Ticron Ethicon 2 [id number] 22026 129921 5 Multipack ([id number]) 3-0 Vicryl Ethicon 1 [id number] 465021 716379 5 Single Pack [id number] 5-0 Monocryl Ethicon 1 Y495G 102853 273496 895441 5 PS2 Y495G Cautery Tip Microtek 1 [id number] [id number] 649517 883022 5 [employer] Cautery Microtek 1 [id number] 420187 62893 764647 5 Pushbutton Medical Inc. Pencil Mepilex Cardinal 1 [id number] 036150 393780 548990 5 Dressing Health (454111) Immobilizer Cardinal 1 [id number] 273757 257121 266001 5 Large Health Signature Audit [place] Stage Time Signature Unsigned Intra-Procedure 12/16/2018 Tess Moy 10:07:22 AM RT(R) Signatures Performing Physician : Signature : Zach Patel MD Date : Time : Monitor : Tesscristofer Moy Signature : RT Date : Time : Nurse : Alina Zacarias RN Signature : Date : Time : [place] [address] [place] [address]
[~2018-12-14 10:18] MED LIST changes: -ATIVAN0.5 MG PO; -HYDROCODON-ACE1 EAC7 PO; -K-DUR20 MEQ PO; -LEVOFLOXAC750 MG/150 IV; -MAXIPIME 2 GM/D52 G1 IV; -MELATONIN 3 MG1 TAB PO; -VANCOMYCIN 1 GM/1 G1 IV
[2018-12-14 10:52] LABS: BASOPHILS 0.8 % (0-2); EOSINOPHILS 1.1 % (0-7); HEMOGLOBIN 13.2 g/dL (12-16); IMMATURE GRANULOCYTES 0.3 % (0-5); LYMPHOCYTES 13.3 % (15-50); MCH 30.6 pg (26.0-34.0); MCHC 33.8 g/dL (31.0-37.0); MCV 90.3 fL (80.0-100.0); MEAN PLATELET VOLUME 9.6 fL (7.4-10.4); MONOCYTES 8.9 % (2-11); NEUTROPHILS 75.6 % (40-80); PLATELET COUNT 247 10x3/uL (130-400); RBC 4.32 10x6/uL (4.00-5.40); RDW 14.1 % (11.5-14.5); WBC 7.5 10x3/uL (4.8-10.8)
[2018-12-14 11:05] LABS: APTT 35.4 SECONDS (22.8-39.4); INR 1.69 (0.85-1.17); PROTIME 19.2 SECONDS (11.6-15.0)
[2018-12-14 11:08] LABS: ALBUMIN 3.8 g/dL (3.4-5.0); ALKALINE PHOSPHATASE 71 U/L (46-116); ALT (SGPT) 30 U/L (10-68); BILIRUBIN - TOTAL 1.03 mg/dL (0.2-1.3); CALC OSMOLALITY 260 mosm/kg (275-300); CALCIUM 9.3 mg/dL (8.5-10.1); CARBON DIOXIDE 36.1 mmol/L (21.0-32.0); CHLORIDE - SERUM 93 mmol/L (98-107); CREATININE - SERUM 0.7 mg/dL (0.6-1.3); GLUCOSE 118 mg/dL (74-106); POTASSIUM - SERUM 3.8 mmol/L (3.5-5.1); PROTEIN - SERUM 7.9 g/dL (6.4-8.2); SODIUM 130 mmol/L (136-145); UREA NITROGEN 9 mg/dL (7-18); eGFR NON AFRICAN AMERICAN 86 mL/min (90-120)
[2018-12-14 11:19] LABS: CKMB 1.2 U/L (0.0-3.6); CREATINE KINASE 65 UL (21-215); PRO BNP 1061 pg/mL (0-450); TROPONIN-I < 0.017 ng/mL (0.000-0.060)
[2018-12-14 14:20] LABS: T4 THYROXIN - FREE 1.3 ng/dL (0.76-1.46); THYROID STIMULATING HORMONE 2.35 uIU/mL (0.36-3.74)
--- NOTE | 2018-12-14 14:42 | MORECARE ---
CASE MANAGEMENT DISCHARGE SUMMARY PATIENT: ELVIN MAYS UNIT: [id number] ADM DATE: 12/14/18 AGE: 78 : 40 SEX: F ROOM/BED: D.3946 AUTHOR: DAVID CAUSEY PHYSICIAN: REFERRING PHYSICIAN: GEOVANNY GAYLE MD DATE OF SERVICE: 12/14/18 Discharge Plan Patient Name: ELVIN MAYS [facility] [facility] 1940 Planned Disposition: Home Anticipated Discharge Date: 12/17/18 Discharge Date: Expected LOS: 3 Initial Reviewer: [email or web address] Initial Review Date: 12/14/2018 Generated: 12/14/18 3:42 pm DCPIA - Discharge Planning Initial Assessment Updated by [email or web address]: Nadya Vázquez on 12/14/18 2:38 pm * Is the patient Alert and Oriented? Yes * How many steps to enter\exit or inside your home? two * PCP Dr. Gayle * Pharmacy [facility] the [facility] * Preadmission Environment Home with Family * ADLs Independent * Equipment Oxygen * Other Equipment Does not have portability. Said she needs portability and a nebulizer at discharge. She also needs a walker * List name and contact numbers for known caregivers / representatives who currently or will assist patient after discharge: Yvonne Sanchez - daughter - [phone] * Verbal permission to speak to the caregivers and representatives has been obtained from the patient. Yes * Community resources currently utilized None * Additional services required to return to the preadmission environment? Yes * Can the patient safely return to the preadmission environment? Yes * Has this patient been hospitalized within the prior 30 days at any hospital? No Patient Name: ELVIN MAYS Page [id number] at 1442 All edits/amendments must be made on the electronic document DICTATION DATE: 12/14/18 144 CERTIFIED ART THERAPIST: KEVIN 12/14/181441 RPT#: [id number] DC DATE: STATUS: ADM IN [facility] [address] [place] [address] END OF REPORT
--- NOTE | 2018-12-14 14:52 | NUR ---
REPORT CALLED TO YULIYA GARCIA BY SBAR FORMAT
--- NOTE | 2018-12-14 14:55 | NUR ---
EMPTIED FC OF 1400 ML CLEAR YELLOW URINE
--- NOTE | 2018-12-14 15:00 | MORECARE ---
CASE MANAGEMENT DISCHARGE SUMMARY PATIENT: ELVIN MAYS UNIT: [id number] ADM DATE: 12/14/18 AGE: 78 : 40 SEX: F ROOM/BED: D.0443 AUTHOR: DAVID CAUSEY PHYSICIAN: REFERRING PHYSICIAN: GEOVANNY GAYLE MD DATE OF SERVICE: 12/14/18 Discharge Plan Patient Name: ELVIN MAYS Facility: [facility]:[place] : 1940 Planned Disposition: Home Anticipated Discharge Date: 12/17/18 Discharge Date: Expected LOS: 3 Initial Reviewer: [email or web address] Initial Review Date: 12/14/2018 Generated: 12/14/18 4:00 pm DCP- Discharge Planning Updated by [email or web address]: Nadya Vázquez on 12/14/18 1:[address] DC PLAN: Return home with her independently. ANTICIPATED DC NEEDS: Needs portable O2, Nebulizer, and Wheelchair. [facility] - [facility] CM met with patient and her daughter Yvonne to complete initial dc planning assessment. CM educated patient on the CM role and verbal consent given by patient to complete assessment. CM verified patient's address, phone number, and emergency contact phone numbers. Patient lives at home with her . She requires assistance with medication management, all transportation, assistance getting in and out of the bath, and meals. Patient is forgetful and her daughter had to assist her with assessment questions. Yvonne reports they have someone with the patient 24/10. At discharge patient plans to return home with her and feels this is a safe discharge. She has Oxygen but no portability. They reported Dr. Velazco's office was supposed to be setting her up with portable oxygen (she has home o2) and a nebulizer. Family member works at [employer] [employer] [facility] and stated they have yet to receive order. Yvonne is also requesting a wheelchair as well at [place]. [facility] signed for [facility]HP by daughter for dme needs. CM discussed availability of home health, rehab services, and medical equipment. Daughter reports a family member will transport her home at time of discharge. CM will continue to follow and will assist as needed with dc plans/needs. Nadya Vázquez RN, [facility] DCPIA - Discharge Planning Initial Assessment Updated by [email or web address]: Nadya Vázquez on 12/14/18 2:53 pm * Is the patient Alert and Oriented? Yes * How many steps to enter\exit or inside your home? two * PCP Dr. Gayle * Pharmacy [facility] the [facility] * Preadmission Environment Home with Family * ADLs Partial Dependent * Partial ADLs (Assistance needed) Medication Management Transfers * Equipment Oxygen * Other Equipment Does not have portability. Said she needs portability and a nebulizer at discharge. She also needs a walker * List name and contact numbers for known caregivers / representatives who currently or will assist patient after discharge: Yvonne Sanchez - daughter - [phone] * Verbal permission to speak to the caregivers and representatives has been obtained from the patient. Yes * Community resources currently utilized None * Additional services required to return to the preadmission environment? Yes * Can the patient safely return to the preadmission environment? Yes * Has this patient been hospitalized within the prior 30 days at any hospital? No Last DP export: 12/14/18 1:42 p Patient Name: ELVIN MAYS Page [id number] at 1500 All edits/amendments must be made on the electronic document DICTATION DATE: 12/14/18 1500 CARTOGRAPHY/MAPPING TECHNICIAN: KEVIN 12/14/18 1500 RPT#: [id number] DC DATE: STATUS: ADM IN [facility] [address] [place] [address] END OF REPORT
--- NOTE | 2018-12-14 15:00 | NUR ---
TRANSPORTED TO ROOM #2117 CONDITION STABLE
[2018-12-14] MEDS ORDERED: LASIX40 MG PO (15:13)
--- NOTE | 2018-12-14 19:38 | NUR ---
RECEIVED BEDSIDE REPORT. PATIENT IS ALERT AND ORIENTED, RESTING COMFORTABLY IN BED. REPIRATIONS ARE EVEN AND UNLABORED. NO S/S OF DISTRESS. NO C/O PAIN. FAMILY AT BEDSIDE. CALL LIGHT WITHIN REACH. WILL CPOC.
[2018-12-15] VITALS: BP 126/53
[2018-12-15 04:00] VITALS: BP 131/54
[2018-12-15 05:21] LABS: BASOPHILS 0.3 % (0-2); EOSINOPHILS 1.2 % (0-7); HEMATOCRIT 41.4 % (36.0-48.0); HEMOGLOBIN 13.5 g/dL (12-16); IMMATURE GRANULOCYTES 0.2 % (0-5); LYMPHOCYTES 12.7 % (15-50); MCH 30.7 pg (26.0-34.0); MCHC 32.6 g/dL (31.0-37.0); MEAN PLATELET VOLUME 9.5 fL (7.4-10.4); MONOCYTES 11.6 % (2-11); PLATELET COUNT 239 10x3/uL (130-400); RDW 14.7 % (11.5-14.5); WBC 8.9 10x3/uL (4.8-10.8)
[2018-12-15 05:25] LABS: MCV 94.1 fL (80.0-100.0)
[2018-12-15 05:43] LABS: ALBUMIN 3.4 g/dL (3.4-5.0); ALKALINE PHOSPHATASE 68 U/L (46-116); ALT (SGPT) 28 U/L (10-68); BILIRUBIN - TOTAL 0.62 mg/dL (0.2-1.3); CALC OSMOLALITY 268 mosm/kg (275-300); CALCIUM 8.8 mg/dL (8.5-10.1); CARBON DIOXIDE 39.8 mmol/L (21.0-32.0); CHLORIDE - SERUM 96 mmol/L (98-107); CREATININE - SERUM 0.6 mg/dL (0.6-1.3); GLUCOSE 111 mg/dL (74-106); POTASSIUM - SERUM 4.1 mmol/L (3.5-5.1); PROTEIN - SERUM 7.6 g/dL (6.4-8.2); SODIUM 135 mmol/L (136-145); UREA NITROGEN 8 mg/dL (7-18); eGFR NON AFRICAN AMERICAN > 90 mL/min (90-120)
[2018-12-15 08:53] VITALS: BP 145/52
[2018-12-15 13:54] VITALS: BP 105/45
--- NOTE | 2018-12-15 15:21 | NUR ---
CONSENTS SIGNED FOR PACEMAKER, WILL CONT. PLAN OF CARE.
[2018-12-15 18:25] VITALS: BP 132/68
--- NOTE | 2018-12-15 19:32 | NUR ---
BEDSIDE SHIFT REPORT COMPLETED AND PT RESTING IN BED WITH AT BEDSIDE . NO DISTRESS. CALL LIGHT IN REACH. CPOC.
[2018-12-15 20:00] VITALS: BP 112/54
--- NOTE | 2018-12-15 21:28 | NUR ---
BEDTIME MEDS GIVEN. AT BEDSIDE. INSTRUCTED ON NPO AFTER MIDNIGHT FOR AM PACEMAKER PLACEMENT PER DR CASTANEDA.
[2018-12-16] VITALS: BP 113/45
[2018-12-16 04:00] VITALS: BP 104/50
[2018-12-16 05:00] LABS: BASOPHILS 0.4 % (0-2); EOSINOPHILS 1.5 % (0-7); HEMATOCRIT 39.5 % (36.0-48.0); HEMOGLOBIN 12.8 g/dL (12-16); IMMATURE GRANULOCYTES 0.2 % (0-5); LYMPHOCYTES 11.1 % (15-50); MCH 30.5 pg (26.0-34.0); MCHC 32.4 g/dL (31.0-37.0); MCV 94.3 fL (80.0-100.0); MEAN PLATELET VOLUME 9.2 fL (7.4-10.4); MONOCYTES 9.1 % (2-11); NEUTROPHILS 77.7 % (40-80); PLATELET COUNT 223 10x3/uL (130-400); RBC 4.19 10x6/uL (4.00-5.40); RDW 14.3 % (11.5-14.5); WBC 9.8 10x3/uL (4.8-10.8)
[2018-12-16 05:10] LABS: CALC OSMOLALITY 264 mosm/kg (275-300); CARBON DIOXIDE 37.5 mmol/L (21.0-32.0); CHLORIDE - SERUM 94 mmol/L (98-107); CREATININE - SERUM 0.6 mg/dL (0.6-1.3); GLUCOSE 123 mg/dL (74-106); POTASSIUM - SERUM 4.2 mmol/L (3.5-5.1); SODIUM 132 mmol/L (136-145); UREA NITROGEN 9 mg/dL (7-18); eGFR NON AFRICAN AMERICAN > 90 mL/min (90-120)
--- NOTE | 2018-12-16 05:33 | NUR ---
NO CHANGE FROM INITIAL SHIFT ASSESSMENT. PT HAS BEEN NPO SINCE MIDNIGHT. AT BEDSIDE. CPOC.
[2018-12-16 07:30] VITALS: BP 136/53
--- NOTE | 2018-12-16 08:48 | NUR ---
LEAVING TO CARE CLINICIAN BY BED FOR PACEMAKER.
--- NOTE | 2018-12-16 10:31 | NUR ---
BACK FROM [facility]OOK. 02 SAT 69. O2 BUMPED TO 5L TIL SATS CAME UP TO 91, RT CALLED FOR ASSISTANC. UNABLE TO INSERT PACEMAKE AT THIS TIME. GEORGE LEFT CHEST CDI. TELEMETRY UCAF HR 116. NEW ORDERS GIVEN PER DR ELIZABETH. WILL CONT. PLAN OF CARE.
[2018-12-16 11:30] VITALS: BP 135/83
--- NOTE | 2018-12-16 12:50 | NUR ---
IV STARTED TO LEFT WRIST WITH 20 GAUGE CATH X 1 STICK AND FLUSED WITH NS. BACK FROM CT. WILL CONT. PLAN OF CARE.
[2018-12-16 15:30] VITALS: BP 97/60
[2018-12-16 20:00] VITALS: BP 104/59
--- NOTE | 2018-12-16 20:13 | NUR ---
INITIAL ROUNDS AND ASSESSMENT COMPLETED. PT RESTING IN BED WITH AT BEDSIDE. ALERT/ORIENTED. 97/ CAF PER TELEMETRY. INCISION TO LEFT CHEST WHER PACEMAKER IS SITED. LEADS STILL TO BE GUIDED BY ADDITIONAL INTERVENTION PER CARDIOTHORACIC SURGEON, POSSIBLY TOMORROW, SO PT WILL BE KEPT NPO AFTER MIDNIGHT. CPOC. CALL LIGHT IN REACH.
--- NOTE | 2018-12-16 21:25 | NUR ---
BEDTIME MEDS GIVEN. PT ALSO HAS HIDALGO PATENT TO BEDSIDE DRAIN BAG. DENIES NEED FOR ANY PAIN MEDS AT THIS TIME. INSTRUCTED AGAIN ON BEING NPO AFTER MIDINGHT UNTIL DECISION IS MADE IN AM ABOUT HER PROCEDURE. SPOUSE AND PT VOICE UNDERSTANDING.
[2018-12-17] VITALS: BP 118/68
[2018-12-17 04:30] VITALS: BP 108/51
[2018-12-17 04:58] LABS: CALC OSMOLALITY 269 mosm/kg (275-300); CALCIUM 9.3 mg/dL (8.5-10.1); CARBON DIOXIDE 38.6 mmol/L (21.0-32.0); CHLORIDE - SERUM 94 mmol/L (98-107); CREATININE - SERUM 0.6 mg/dL (0.6-1.3); GLUCOSE 112 mg/dL (74-106); POTASSIUM - SERUM 4.4 mmol/L (3.5-5.1); SODIUM 135 mmol/L (136-145); UREA NITROGEN 10 mg/dL (7-18); eGFR NON AFRICAN AMERICAN > 90 mL/min (90-120)
--- NOTE | 2018-12-17 06:40 | NUR ---
NO CHANGE FROM INITIAL SHIFT ASSESSMENT. NPO FOR POTENTIAL PROCEDURE THIS AM. AT BEDSIDE. ROCKY PATENT.
[2018-12-17 08:30] VITALS: BP 116/57
[2018-12-17 13:04] VITALS: BP 115/50
[2018-12-17 15:56] VITALS: BP 131/68
[2018-12-17 20:00] VITALS: BP 145/88
--- NOTE | 2018-12-17 20:01 | NUR ---
RECEIVED BEDSIDE REPORT. PATIENT IS ALERT AND ORIENTED, RESTING COMFORTABLY IN BED. NO S/S OF DISTRESS. NO C/O PAIN. CALL LIGHT WITHIN REACH. NEEDS MET. WILL CPOC.
[2018-12-18] VITALS: BP 133/76
[2018-12-18 10:03] VITALS: BP 130/73
[2018-12-18 12:00] VITALS: BP 115/80
[2018-12-18 14:58] VITALS: BMI 26.9
--- NOTE | 2018-12-18 16:46 | NUR ---
RECEIVED PT BACK TO ROOM FROM COMMODITIES MANAGER UNSUCCESSFUL PACEMAKER PLACEMENT DRSG C/D/I TO RT CHEST VSS RESTING QUIETLY NAD NOTED WILL CONTINUE TO MONITOR DAUGHTER AT BEDSIDE
--- NOTE | 2018-12-18 19:29 | NUR ---
RESUMING PATIENT CARE. PATIENT IS ALERT AND ORIENTED, RESTING COMFORTABLY IN BED. RESPIRATIONS ARE EVEN AND UNLABORED. NO S/S OF DISTRESS. NO C/O PAIN. CALL LIGHT WITHIN REACH. WILL CPOC.
[2018-12-18 20:00] VITALS: BP 111/65
[2018-12-19 00:30] VITALS: BP 106/62
[2018-12-19 04:30] VITALS: BP 106/65
[2018-12-19 06:34] LABS: CALC OSMOLALITY 272 mosm/kg (275-300); CALCIUM 9.8 mg/dL (8.5-10.1); CARBON DIOXIDE 35.6 mmol/L (21.0-32.0); CHLORIDE - SERUM 96 mmol/L (98-107); CREATININE - SERUM 0.4 mg/dL (0.6-1.3); GLUCOSE 135 mg/dL (74-106); SODIUM 135 mmol/L (136-145); UREA NITROGEN 15 mg/dL (7-18); eGFR NON AFRICAN AMERICAN > 90 mL/min (90-120)
[2018-12-19 07:28] LABS: BASOPHILS 0 % (0-2); EOSINOPHILS 0 % (0-7); HEMATOCRIT 39.6 % (36.0-48.0); HEMOGLOBIN 12.9 g/dL (12-16); IMMATURE GRANULOCYTES 0.2 % (0-5); LYMPHOCYTES 6.6 % (15-50); MCH 30.5 pg (26.0-34.0); MCHC 32.6 g/dL (31.0-37.0); MCV 93.6 fL (80.0-100.0); MEAN PLATELET VOLUME 9.9 fL (7.4-10.4); MONOCYTES 0.9 % (2-11); NEUTROPHILS 92.3 % (40-80); RBC 4.23 10x6/uL (4.00-5.40); RDW 14.7 % (11.5-14.5); WBC 8.8 10x3/uL (4.8-10.8)
[2018-12-19 07:44] LABS: PLATELET COUNT 289 10x3/uL (130-400)
[2018-12-19 08:35] VITALS: BP 102/39
--- NOTE | 2018-12-19 12:02 | NUR ---
TELEMETRY CAF. RESP UP Mon 4L NC. DESGS TO CHEST CDI. FAMILY AT BS. CALL LIGHT IN REACH. WILL CONT. PLAN OF CARE.
[2018-12-19 12:45] VITALS: BP 100/48
[2018-12-19 13:56] LABS: CALC OSMOLALITY 276 mosm/kg (275-300); CALCIUM 9.2 mg/dL (8.5-10.1); CARBON DIOXIDE 35.6 mmol/L (21.0-32.0); CHLORIDE - SERUM 96 mmol/L (98-107); CREATININE - SERUM 0.7 mg/dL (0.6-1.3); GLUCOSE 194 mg/dL (74-106); HEMATOCRIT 39.2 % (36.0-48.0); HEMOGLOBIN 12.7 g/dL (12-16); MCH 30.4 pg (26.0-34.0); MCHC 32.4 g/dL (31.0-37.0); MCV 93.8 fL (80.0-100.0); MEAN PLATELET VOLUME 9.4 fL (7.4-10.4); POTASSIUM - SERUM 4.6 mmol/L (3.5-5.1); RBC 4.18 10x6/uL (4.00-5.40); RDW 14.6 % (11.5-14.5); SODIUM 135 mmol/L (136-145); UREA NITROGEN 18 mg/dL (7-18); eGFR NON AFRICAN AMERICAN 86 mL/min (90-120)
[2018-12-19 14:01] LABS: APTT 26.4 SECONDS (22.8-39.4); INR 1.25 (0.85-1.17); PROTIME 15.1 SECONDS (11.6-15.0)
[2018-12-19 14:02] LABS: WBC 16.8 10x3/uL (4.8-10.8)
--- NOTE | 2018-12-19 14:14 | NUR ---
EKG COMPLETED. CONSENTS SIGHNED FOR PACEMAKER TOMARROW. WILL CONT. PLAN OF CARE.
[2018-12-19 16:45] VITALS: BP 117/63
--- NOTE | 2018-12-19 19:35 | NUR ---
PT IS ALERT AND SITTING IN SEMI-FOWLERS POSITION. BREATHING IS EVEN AND UNLABORED. DENIES ANY PAIN OR CONCERNS AT THIS TIME. BED IS IN THE LOWEST POSITION AND CALL LIGHT IN REACH. WILL CONTINUE TO FOLLOW POC AND CTM.
[2018-12-20] VITALS (38 sets, daily range): BP systolic 90–167; BP diastolic 40–95; Ht 152.4 cm; Wt 63.2 kg
--- NOTE | 2018-12-20 08:06 | HP ---
PATIENT: ELVIN MAYS MEDICAL RECORD: [id number] ACCOUNT: [id number] LOCATION:[address] : 40 ADMISSION DATE: 12/14/18 PCP: GEOVANNY HELM MD HISTORY AND PHYSICAL EXAMINATION REASON FOR ADMISSION: Shortness of breath and fatigue. HISTORY OF PRESENT ILLNESS: The patient is a 78-year-old female with history of chronic atrial fibrillation and CAD. The patient had undergone a cardioversion on 11/20/2018, but 2 days later was back in AFib and had tachy-rangel symptoms. She had also had a stress test earlier in the year that showed ejection fraction in excess of 80%. She was seen in the cardiology office earlier this weekend and nurse practitioner increased her Lasix to 40 mg b.i.d., but her daughter says she had minimal output. She has been more dyspneic and this morning in her home, home health noted her sat was 75% on 5 liters. She denied chest pain, hemoptysis, or sputum production. She was brought to the ER for that reason, pO2 was 64 on 2 liters. Chest x-ray did show some increasing interstitial edema and Guevara B lines. Her EKG did show sinus bradycardia with rates as low as 30 beats per minute on sotalol. She is now being admitted for further evaluation. PAST MEDICAL HISTORY: Coronary artery disease with 3-vessel CABG in 2001, LAD, circ, RCA and had PTCA of the RCA in 2005, negative stress test for ischemia April of 2018. 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 Atrial fib as mentioned. PAST SURGICAL HISTORY: She has had benign breast biopsy times 2, LEEP procedure in 1999, CABG as mentioned above in 2001. FAMILY HISTORY: Positive for ASHD, hypertension. SOCIAL HISTORY: , retired, nonsmoker, nondrinker lifelong. Her daughter is a RN. HOME MEDICATIONS: Xarelto 20 mg a day, Cozaar 50 mg a day, Crestor 5 mg at h.s., sotalol 40 mg b.i.d., aspirin 81 mg a day, Lasix 40 mg b.i.d., potassium chloride 10 mEq b.i.d. Additionally, PFTs done outpatient earlier this year showed an FEV1 less than 1 liter. REVIEW OF SYSTEMS: GENERAL: Fatigue as mentioned above. No fever. HEENT: No recent visual change, sinus congestion, or sore throat. RESPIRATORY: Rest and exertional dyspnea. Unable to walk more than 20 feet without sitting down on oxygen. She has had no cough, sputum production, or chest pain. CARDIAC: No chest pain, claudication. Edema plus ARCE as mentioned. ENDOCRINE: Denies polyuria, polydipsia, heat or cold intolerance. NEUROLOGIC: No recent history of stroke, TIA, or vascular headaches. Had remote left MCA distribution stroke with mild expressive aphasia and some gait disturbance. GENITOURINARY: No incontinence. HISTORY AND PHYSICAL [id number] ELVIN MAYS GYNECOLOGICAL: No vaginal bleeding. ENDOCRINE: Denies polyuria, polydipsia, heat or cold intolerance. PHYSICAL EXAMINATION: VITAL SIGNS: Her pulse is 30-41, respiratory rate is 20, blood pressure 176/74 with a sat 94% on 2 liters. HEENT: Normocephalic. Eyes are clear. Oropharynx unremarkable. NECK: Supple. CHEST: Reveals a bradycardic rate and irregular. CARDIAC: No appreciable murmurs. LUNGS: Show crackles in the bases bilaterally. No E to A change or wheeze. ABDOMEN: Soft. EXTREMITIES: Trace pretibial 1+ bipedal edema bilaterally. NEUROLOGICAL: Oriented to person, place, and time. Cranial nerves intact. Gait is normal. Slight weakness in her right upper and lower extremity. Romberg negative. Babinski sign is negative. LABORATORY DATA: White count of 7500, H&H of 13 and 39. Chemistry: Sodium is low at 130, BUN and creatinine are 9 and 0.7, glucose is 118. Cardiac enzymes are negative. ProBNP is 1061. INR is 1.69. D-dimer is pending. Chest x-ray shows thoracic scoliosis, stable cardiomegaly with increased interval interstitial edema. ASSESSMENT: 1. Symptomatic bradycardia with history of atrial fibrillation, failing cardioversion. 2. Respiratory failure with hypoxemia due to chronic obstructive pulmonary disease and possibly influenced by bradycardia. 3. Stable coronary artery disease. 4. Hypertension. 5. Remote cerebrovascular accident. 6. Hyponatremia, diuretic induced. PLAN: We will admit the patient for mild diuresis. Cardiology consult has been obtained. The patient's EKG does show sinus bradycardia with rates as low as 30 beats per minute on Betapace, may well need pacing. TRANSINT:[id number] Voice Confirmation ID: [id number] DOCUMENT ID: [id number] GEOVANNY HELM MD at 0806 CC: [id number] DICTATION DATE: 12/14/18 1328 PROPERTY MANAGEMENT SUPERVISOR: 12/14/18 1357 ADM IN [place] [id number] [place] [address]
--- NOTE | 2018-12-20 13:20 | NUR ---
PT ARRIVED IN THE UNIT. PT SEDATED AND ON THE VENTILATOR. 8.0 ETT NOTED 22 AT THE LIP. LEFT AND RIGHT UPPER CHEST DRESSING C/D/I. INFERIOR OF THE DRESSING TO THE LEFT UPPER CHEST IS ANOTHER DRESSING C/D/I WHERE THE PPM IS. LEFT LATERAL CHEST CT NOTED TO 20 H2O SUCTION. NO AIR LEAK NOTED. BLOODY DRAINAGE NOTED. LEFT RADIAL ALEX NOTED. WRIST PROTECTOR ON. CAP REFILL <3 SECONDS. IV NOTED TO RIGHT FA, LEFT FA, AND LEFT WRIST. ALL PATENT WITH NO S/SX OF INFILTRATION. FC NOTED WITH CLEAR, YELLOW URINE. VSS. CALL LIGHT IN REACH. WILL CONT POC.
--- NOTE | 2018-12-20 13:23 | OP ---
PATIENT NAME: ELVIN MAYS MEDICAL RECORD: [id number] :40 LOCATION:D.[facility]I D.CV08 ADMISSION DATE:12/14/18 SURGEON: REBECCA TRENT MD DATE OF OPERATION: 12/18/2018 PREOPERATIVE DIAGNOSES: 1. Sick sinus syndrome. 2. Pulmonary edema. POSTOPERATIVE DIAGNOSES: 1. Sick sinus syndrome. 2. Pulmonary edema. PROCEDURE: Superior venacavogram with fluoroscopy. SURGEON: Rebecca Trent MD COSURGEON: Zach Nagel MD REPORT OF PROCEDURE: The patient's right chest was prepped and draped in sterile fashion. A 20 mL of 1% lidocaine with epinephrine was infused into the surrounding tissues. A transverse incision was made over the right superolateral chest and a subcutaneous pouch was made over the pectoral fascia. The needles were used to cannulate the right subclavian vein and guidewires were advanced. Fluoroscopy was used to note that the wires were in the venous system. Multiple attempts were made to try and pass these wires to pass the superior vena cava without any luck. We eventually placed a dilator over the wire and tried passing a 0.035 Glidewire. We were never able to get this to pass through the superior vena cava and eventually we shot a superior venacavogram using 10 mL of contrast and could see that the contrast was stopping abruptly in the vena cava. At this point, it was decided to discontinue the operation. The catheter and the wires were removed. The subcutaneous tissues were then reapproximated with interrupted 3-0 Vicryl and skin was closed with running subcutaneous 5-0 Monocryl. COMPLICATIONS: None. CONDITION: Stable. ANESTHESIA: Local MAC. BLOOD LOSS: Minimal. TRANSINT:[id number] Voice Confirmation ID: [id number] DOCUMENT ID: [id number] REBECCA TRENT MD at 1323 CC: [id number] DICTATION DATE: 12/18/18 1558 UNMANNED AIRCRAFT SYSTEMS ROBOTICIST: 12/18/18 1825 ADM IN [place] [address] [place] [address]
--- NOTE | 2018-12-20 13:26 | NUR ---
1215 DRESSINGS ON PATIENT EXTIBATED. SEE ANESTHESIA NOTES. DR. DAVIDSON CALLED BACK TO ROOM. PATIENT REINIBATED, CHEST XRAY OBTAINED. DR DAVIDSON PREFORM BRONCH.
--- NOTE | 2018-12-20 13:45 | NUR ---
XRAY CALLED FOR STAT CXRAY. PER DR DAVIDSON, SINCE THEY HAD A CXR IN THE OR, THEY DO NOT NEED ANOTHER ONE. WILL CONT POC.
--- NOTE | 2018-12-20 14:17 | NUR ---
PTS FAMILY MEMBER AT THE PTS BEDSIDE. VSS. PT AWAKE AND FOLLOWIING COMMANDS. WILL CONT POC.
[2018-12-20 14:20] LABS: APPEARANCE CLOUDY (CLEAR); COLOR YELLOW (YELLOW)
[2018-12-20 14:21] LABS: BACTERIA MANY /hpf (NEGATIVE); BILIRUBIN NEGATIVE (NEGATIVE); GLUCOSE NEGATIVE (NEGATIVE); KETONE MODERATE mg/dL (NEGATIVE); MUCUS >1+ /lpf (NONE SEEN); NITRITE NEGATIVE (NEGATIVE); PROTEIN TRACE mg/dL (NEGATIVE); RED CELLS - URINE 25-50 /hpf (0-5); UROBILINOGEN NORMAL (NORMAL); WHITE CELLS - URINE 25-50 /hpf (NEGATIVE)
--- NOTE | 2018-12-20 14:47 | NUR ---
PT AWAKE AND ON SPONT MODE ON THE VENT. PT DOING WELL. WILL CONT POC/WEEN.
--- NOTE | 2018-12-20 15:27 | NUR ---
DR DAVIDSON NOTIFED ABOUT THE PTS BEING IN AFIB WITHA RATE OF 120-140. GIVE IV LOPRESSOR NOW AND NOTIFY DR CASTANEDA.
--- NOTE | 2018-12-20 15:47 | NUR ---
IV LOPRESSOR GIVEN. RATE DECREASED TO [address] CASTANEDA. GIVE 0.5 IV DIGOXIN AND OK TO GIVE BETAPACE ONCE TOLERATING PO
--- NOTE | 2018-12-20 16:45 | NUR ---
PT DOING WELL WITH EXTUBATION. PT PASSED WEENING TRIALS. PT EXTUBATED AND PLACED ON O2 AT 4L VIA NC. PT IMMEDIATELY DESATED. O2 INCRASED PER RT TO 6L VIA HIGH FLOW AND THEN 11L HIGH FLOW. O2 SAT AT 78%. CAITLIN MASK PER RT AND O2 INCRSED TO 85%. DR DAVIDSON WALKED IN AND ORDERS FOR BIPAP AND TO CONSULT DR CARRERO. DR CARRERO CONSULTED. ORDERS FOR BIPAP 16/11. STAT CXR STAT AND ABG'S IN 30 MINS.
--- NOTE | 2018-12-20 17:00 | NUR ---
PT HAS BEEN ON BIPAP AT 50% FIO2. O2 SAT 99%. VSS. WILL CONT POC/MONITOR.
--- NOTE | 2018-12-20 17:17 | NUR ---
DR CARRERO AT THE PTS BEDSIDE. SEE ORDERS. WILL CONT POC.
--- NOTE | 2018-12-20 17:28 | NUR ---
PER DR CARRERO. GIVE LASIX NOW AND SCHEDUAL FOR 0600 AND 1800.
--- NOTE | 2018-12-20 19:15 | NUR ---
PT RESTING ON BIPAP @ 40%, RESTLESS AT TIMES PULLING AT MASK, ORIENTED AT THIS TIME, PT NEEDS FREQUENT REMINDERS TO LEAVE MASK ALONE, RIGHT FOREARM PIV SALINE LOCKED, LEFT FOREARM PIV SALINE LOCKED, LEFT WRIST PIV WITH PLASMALYTE @ 30CC/HR AND NITROGLYCERIN @ 3CC/HR OR 10MCG/KG/MIN, RIGHT RADIAL ALEX WITH FLEXION BOARD IN USE, LINE LEVELED AND ZEROED WITH RETURN OF APPROPRIATE WAVEFORM, RIGHT AND LEFT UPPER CHEST DRSGS CDI, BRUISING NOTED, LEFT LOWER CHEST DRSG PPM SITE CDI, LEFT LATERAL CT TO 20CM H2O SUCTION, NO AIR LEAK NOTED, DRSG CDI, CRITICORE HIDALGO PATENT DRAINING CLEAR YELLOW URINE, SCDS INTACT, PT DENIES PAIN, REQUESTING WATER, EXPLAINED TO PT SHE COULD NOT HAVE WATER AT THIS TIME, HER OXYGEN SATURATION DROPS WITHOUT THE BIPAP MASK IN PLACE, SON AT BS ASSISTING WITH PREVENTING PT FROM PULLING AT MASK, SR UP X 2, BED IN LOW POSITION, VISIBLE TO NURSES STATION.
--- NOTE | 2018-12-20 19:26 | NUR ---
PO MEDS GIVEN WHENEVER PT WAS TAKEN OFF BIPAP TO BE TRANSFERED TO ROOM CV06 PER DR TRACY REQUEST. NO DYSPAGIA NOTED. VSS. WILL CONT POC.
--- NOTE | 2018-12-20 20:30 | NUR ---
AT BS, UPDATE GIVEN AND QUESTIONS ANSWERED, BP STABLE, CM CONTROLLED AFIB.
--- NOTE | 2018-12-20 20:40 | NUR ---
RT AT FOR ABG, ABG RESULTS CALLED TO DR. CARRERO AND FIO2 WEANED TO 35%.
--- NOTE | 2018-12-20 21:00 | NUR ---
NITROGLYCERIN REDUCED TO 5MCG/KG/MIN BP 121/66, WILL MONITOR CLOSELY FOR CHANGES.
--- NOTE | 2018-12-20 22:30 | NUR ---
BIPAP REMOVED FOR A FEW MINUTES TO ADMINSTER EVENING MED, PT PLACED ON 6 LITERS, O2 SAT DECREASED TO 85% WITH A FEW MINUTES, BIPAP MASK REAPPLIED, AT BS TO HELP CALM PATIENT.
--- NOTE | 2018-12-20 23:00 | NUR ---
REASSESSMENT COMPLETED, PT RESTING ON BIPAP @ 35%, RESP 22, BP STABLE, CONTROLLED A FIB, WILL CONT TO MONITOR FOR CHANGES.
[2018-12-21] VITALS (45 sets, daily range): BP systolic 105–180; BP diastolic 47–94
--- NOTE | 2018-12-21 01:00 | NUR ---
BP TRENDING UP, 142/65, CM-80 AND PACED, REMAINS AT BS.
--- NOTE | 2018-12-21 01:30 | NUR ---
BP 160'S, NITROGLYCERIN RESUMED @ 5CC/HR OR 16.67MCG/MIN, WILL TITRATE FOR EFFECT.
--- NOTE | 2018-12-21 02:00 | NUR ---
NITROGLYCERIN @ 15CC/HR OR 50MCG/MIN, BP 138/69, PT DENIES PAIN, REQUESTING WATER, A FEW ICE CHIPS PROVIDED, REMAINS AT BS, SR UP X 2, CALL LIGHT IN REACH
--- NOTE | 2018-12-21 04:00 | NUR ---
RADIOLOGY AT BS FOR AM CXR
--- NOTE | 2018-12-21 05:40 | NUR ---
AM MEDS GIVEN, PT RESTING EYES CLOSED, RESP 20 ON BIPAP, BP STABLE, WEANING NITROGLYCERIN TOLERATED.
[2018-12-21 06:15] LABS: BASOPHILS 0 % (0-2); EOSINOPHILS 0 % (0-7); HEMOGLOBIN 10.2 g/dL (12-16); IMMATURE GRANULOCYTES 0.3 % (0-5); LYMPHOCYTES 7.3 % (15-50); MCH 29.9 pg (26.0-34.0); MCHC 32.6 g/dL (31.0-37.0); MEAN PLATELET VOLUME 9.1 fL (7.4-10.4); MONOCYTES 7.7 % (2-11); NEUTROPHILS 84.7 % (40-80); RBC 3.41 10x6/uL (4.00-5.40); RDW 15.1 % (11.5-14.5); WBC 14.4 10x3/uL (4.8-10.8)
[2018-12-21 06:18] LABS: HEMATOCRIT 31.3 % (36.0-48.0); MCV 91.8 fL (80.0-100.0); PLATELET COUNT 198 10x3/uL (130-400)
[2018-12-21 06:30] LABS: ALBUMIN 2.4 g/dL (3.4-5.0); ALKALINE PHOSPHATASE 44 U/L (46-116); ALT (SGPT) 36 U/L (10-68); BILIRUBIN - TOTAL 0.68 mg/dL (0.2-1.3); CALCIUM 8.2 mg/dL (8.5-10.1); CARBON DIOXIDE 33.8 mmol/L (21.0-32.0); CHLORIDE - SERUM 102 mmol/L (98-107); MAGNESIUM - SERUM 1.9 mg/dL (1.8-2.4); PHOSPHOROUS 4.1 mg/dL (2.5-4.9); POTASSIUM - SERUM 4.5 mmol/L (3.5-5.1); PROTEIN - SERUM 5.1 g/dL (6.4-8.2); SODIUM 138 mmol/L (136-145); UREA NITROGEN 15 mg/dL (7-18)
--- NOTE | 2018-12-21 06:30 | NUR ---
PT UNCOMFORTABLE IN BED AND WANTING WATER, PT REPOSITIONED ONTO RIGHT SIDE SUPPORTED WITH PILLOW, SIPS OF WATER PROVIDED, PT DENIES FURTHER NEEDS.
[2018-12-21 06:36] LABS: CALC OSMOLALITY 278 mosm/kg (275-300); CREATININE - SERUM 0.5 mg/dL (0.6-1.3); GLUCOSE 128 mg/dL (74-106); eGFR NON AFRICAN AMERICAN > 90 mL/min (90-120)
--- NOTE | 2018-12-21 07:00 | NUR ---
REPORT RECIEVED FROM THE OFF GOING RN. SEE ASSESSMENT IN THE PTS FLOW SHEET. PT LYING IN BED WITH BIPAP ON AT 30% FIO2. LEFT LUNG DEMINISHED. LEFT AND RIGHT UPPER CHEST DRESSING C/D/I. SMALL BRUSING NOTED. INFERIOR OF LEFT UPPER CHEST IS A DRESSING WITH A PPM NOTED. DRESSING C/D/I. LEFT LATERAL CHEST TUBE CONNECTED TO 20 H20 SUCTION WITH NO AIR LEAK. LEFT RADIAL ALEX NOTED WITH THE WRIST PROTECTOR ON. CAP REFILL <3 SECONDS. GOOD WAVE FORM. IV NOTED TO LEFT WRIST AND LEFT FA. RIGHT FA IV LEAKING. IT WAS DC'D WITH THE CATHETER TIP INTACT. FC NOTED WITH CLEAR, YELLOW URINE. VSS. AT THE PTS BEDSIDE. CALL LIGHT IN REACH. WILL CONT POC.
--- NOTE | 2018-12-21 08:00 | NUR ---
DR HELM AT THE PTS BEDSIDE ROUNDING.
--- NOTE | 2018-12-21 10:32 | NUR ---
Nutrition Follow-up: Pacemaker placed yesterday. Pt on bipap. Nurse reports that pt did not eat this morning and that she needs a swallow eval per Dr. Campbell; taking pills without issue. Diet: Regular Wt: 136# Last BM: 12/13 per chart Labs noted: Glu 128, Ca 8.2 Meds noted: Harrison Fernando May consider cardiac diet. Restart Boost with meals. RD following.
--- NOTE | 2018-12-21 12:16 | OP ---
PATIENT NAME: ELVIN MAYS MEDICAL RECORD: [id number] :40 LOCATION:[facility] ADMISSION DATE:12/14/18 SURGEON: GEOFFREY DAVIDSON MD DATE OF OPERATION: 12/20/2018 SURGEON: Geoffrey Davidson MD INSTRUCTOR DECORATING: Jame Carrillo. OPERATIONS PERFORMED: Left anterior thoracotomy and placement of atrial and ventricular lead, repair of pulmonary artery, placement of dual-chamber pacemaker, bronchoscopy. PREOPERATIVE DIAGNOSES: Atrial fibrillation and bradycardia. POSTOPERATIVE DIAGNOSIS: Atrial flutter. ANESTHESIA: General endotracheal anesthesia, double lumen. SPECIMENS: None. ESTIMATED BLOOD LOSS: 200 cc. COMPLICATIONS: Pulmonary artery injury. CONDITION: Stable. DISPOSITION: To the CV ICU. OPERATIVE FINDINGS: 1. Moderate adhesions of the left long to the internal mammary artery and clear patent obtuse marginal graft as well. 2. On entering the pericardium, the pulmonary artery was densely adherent and it was incised and closed primarily. 3. Difficulty obtaining good pacing thresholds with the bipolar lead on the ventricles, so a screw-in type blade was used, which was also tacked to the heart with good pacing thresholds and sensing. 4. Bipolar lead was attached to the left atrial appendage. 5. The old left infraclavicular pocket was opened, irrigated, and used. 6. Moderate hypoxemia after extubation requiring reintubation. Bronchoscopy with some mucous plugging on the left removed. OPERATIVE INDICATIONS: Recurrent bradycardia and atrial arrhythmias. PROCEDURE IN DETAIL: The patient was brought to the operating suite. General anesthesia was obtained and the left lung was deflated. Left chest was sterilely prepped and draped. The patient was bumped slightly up on the right side. Incision was made in approximately the fourth interspace starting about the midclavicular line extending over the anterior axillary line staying above the breast tissue down where the pectoralis muscle was retracted medially and the pectoralis minor was removed from the rib insertions. The chest was entered. Lung was dissected away from the mediastinum. Mediastinal fat was dissected out and the phrenic nerve was posterior, incision into the pericardium resulted in OPERATIVE REPORT [id number] DAVONELVIN bleeding from the pulmonary artery, which was closed with oversewed suture and a pledgeted suture. More inferiorly, the incision over the ventricle was made and this was worked back superiorly up to the level of the left atrial appendage. Multiple sites for the bipolar pacemaker were attempted and tried. Eventually, a screw-in lead was placed. Bipolar lead was then attached to the left atrial appendage. The old pacemaker pocket below the left clavicle was opened and the area was irrigated with vancomycin irrigation. The inferior portion of this communicated with the chest wound and it was closed. The leads were brought into this pocket area, connected to the pacemaker generator, coiled carefully, placed in the pacemaker pocket and the pacemaker generator sutured into place. Thorough antibiotic irrigation was again performed and later this wound was closed with 3 layers including Dermabond on the skin. The chest was irrigated and hemostasis was ensured. A chest tube was placed through a separate stab wound directed to the apex. The wound was closed with #2 muscle layers, subcutaneous, and subcuticular. Dermabond was placed. The needle and sponge counts were reported as correct. The patient was turned supine, positioned, extubated, but due to hypoxemia reintubated. Bronchoscopy for mucous plugging on the left, which was resolved with irrigation. The patient was taken to the ICU on positive pressure ventilation with no air leak in the chest tube. TRANSINT:[id number] Voice Confirmation ID: [id number] DOCUMENT ID: [id number] GEOFFREY DAVIDSON MD at 1216 CC: ZHAO ANDREW MD, GEOVANNY HELM and ELENA CASTANEDA [id number] DICTATION DATE: 12/20/18 1617 SPICE CLEANER: 12/21/18 0008 ADM IN [place] [id number] [place] [address]
--- NOTE | 2018-12-21 12:20 | NUR ---
PTS MASK WAS OFF FOR ABOUT 30 MINUTES. IN THE 30 MINUTES, HIGH FLOW O2 WAS PLACED ON THE PT AT 9-11L. ECHO/BUBBLE STUDY DONE. PT DRANK HER BOOST AND A COUPLE BITE OF LUNCH WITH NO DYSPAGIA THEN THE PT STARTED TO DESAT TO HIGH 70'S. COUCHED THE PT TO DEEP BREATH WITH LITTLE SUCCESS. BIPAP PLACED BACK ON THE PT. O2 SAT NEL TO 98%. SON AT THE PTS BEDSIDE. WILL CONT POC/MONITOR.
--- NOTE | 2018-12-21 12:40 | NUR ---
DR DAVIDSON AT THE PTS BEDSIDE. PLACE CT TO WATER SEAL.
--- NOTE | 2018-12-21 15:23 | NUR ---
BIPAP REMOVED. PO FLUIDS PROVIED. PT IMMIDIATLY DESATED TO LOW 80'S. BIPAP MASK PUT BACK ON AND SPO2 97%.
--- NOTE | 2018-12-21 17:30 | NUR ---
PT TAKEN OFF BIPAP AND DINNER TRAY PROVIDED. PT ON HIGH FLOW O2 AT 11L. PT FEEDING HERSELF. ENCOURAGED COUGHING. PT ABLE TO COUGH UP SMALL AMOUNTS OF PHLEGM. AFTER ABOUT 35 MINS, PT STARTED TO DESAT. BIPAP PLACED BACK ON THE PT AT 30% FIO2. O2 99%. VSS. WILL CONT POC.
--- NOTE | 2018-12-21 18:21 | NUR ---
SPOKE WITH DR CARRERO. OK TO HOLD LASIX DUE TO BP 98/60
--- NOTE | 2018-12-21 19:00 | NUR ---
PT ASSESSMENT COMPLETED AT THIS TIME. PT AAOX2, PT DENIES COMPLAINTS AT THIS TIME, VSS, WILL MONITOR FOR CHANGES
--- NOTE | 2018-12-21 21:00 | NUR ---
PT GIVEN PO MEDS AT THIS TIME, NO PROBLEMS TAKING MEDS, PT PLACED BACK ON BIPAP, NO COMPLAINTS AT THIS TIME
--- NOTE | 2018-12-21 23:00 | NUR ---
PT REASSESSMENT COMPLETED AT THIS TIME, NO CHANGES NOTED, VSS, WILL CONT. TO MONITOR FOR CHANGES
[2018-12-22] VITALS (24 sets, daily range): BP systolic 114–156; BP diastolic 51–80
--- NOTE | 2018-12-22 01:00 | NUR ---
PT RESTING WITH EYES CLOSED, RESP EVEN, VSS, WILL CONT TO MONITOR FOR CHANGES
--- NOTE | 2018-12-22 03:00 | NUR ---
PT REASSESSMENT COMPLETED AT THIS TIME, NO CHANGES NOTED
--- NOTE | 2018-12-22 05:00 | NUR ---
PT RESTING WITH EYES CLOSED, RESP EVEN, VSS AT THIS TIME, WILL MONITOR FOR CHANGES
[2018-12-22 06:22] LABS: BASOPHILS 0 % (0-2); EOSINOPHILS 0.9 % (0-7); HEMATOCRIT 31.4 % (36.0-48.0); HEMOGLOBIN 10.4 g/dL (12-16); IMMATURE GRANULOCYTES 0.4 % (0-5); LYMPHOCYTES 6.9 % (15-50); MCH 30.7 pg (26.0-34.0); MCHC 33.1 g/dL (31.0-37.0); MCV 92.6 fL (80.0-100.0); MEAN PLATELET VOLUME 8.9 fL (7.4-10.4); MONOCYTES 9.3 % (2-11); NEUTROPHILS 82.5 % (40-80); PLATELET COUNT 189 10x3/uL (130-400); RBC 3.39 10x6/uL (4.00-5.40); RDW 14.6 % (11.5-14.5); WBC 13.8 10x3/uL (4.8-10.8)
[2018-12-22 07:14] LABS: ALBUMIN 2.5 g/dL (3.4-5.0); ALKALINE PHOSPHATASE 46 U/L (46-116); ALT (SGPT) 34 U/L (10-68); BILIRUBIN - TOTAL 0.64 mg/dL (0.2-1.3); CALC OSMOLALITY 269 mosm/kg (275-300); CALCIUM 8.6 mg/dL (8.5-10.1); CHLORIDE - SERUM 98 mmol/L (98-107); CREATININE - SERUM 0.6 mg/dL (0.6-1.3); GLUCOSE 123 mg/dL (74-106); POTASSIUM - SERUM 4.2 mmol/L (3.5-5.1); PROTEIN - SERUM 5.4 g/dL (6.4-8.2); SODIUM 134 mmol/L (136-145); UREA NITROGEN 15 mg/dL (7-18); eGFR NON AFRICAN AMERICAN > 90 mL/min (90-120)
--- NOTE | 2018-12-22 09:21 | NUR ---
0700 PT RECIEVED ALERT AND ORIENTED ON BIPAP, L A LINE ZEROED WRIST PROTECTOR IN PLACE GOOD WAVEFORM, L FA AND WRIST PIV PATENT, DRESSING CDI, PLASMALYTE 30ML/HR, BILAT CHEST DRESSINGS CDI, L LAT CT DRESSING CDI, CT TO WATER SEAL, CRITICORE HIDALGO DRAINING YELLOW URINE, HR 80 PACED 0800 REFUSED BREAKFAST TRAY 0830 BIPAP OFF AND PLACED ON 10L O2 0900 TOOK AM MEDS AND WATER WITHOUT DIFFICULTY 0920 SPO2 DROPPING TO 80%, PT ATTEMPTED TO ELEVATE WITH DEEP BREATHING, UNABLE TO INCREASE SPO2, BIPAP PLACED ON PT AND SPO2 QUICKLY RECOVERED TO 90S
--- NOTE | 2018-12-22 13:58 | NUR ---
1220 BIPAP REMOVED FOR LUNCH 1330 BIPAP REPLACED
--- NOTE | 2018-12-22 18:03 | NUR ---
1730 bipap removed for dinner ate 50% dinner turned every 2 hours, and family at bedside, deny all questions
--- NOTE | 2018-12-22 19:00 | NUR ---
PT ASSESSMENT COMPLETED AT THIS TIME, NO CHANGES FROM NURSE REPORT, PT AAOX4, VSS AT THIS TIME, WILL MONITOR FOR CHANGES
--- NOTE | 2018-12-22 21:00 | NUR ---
PT TOOK PO MEDS WITH OUT DIFFCULTY, VSS, NO DISTRESS NOTED, WILL CONT. TO MONITOR
--- NOTE | 2018-12-22 23:00 | NUR ---
PT REASSESSMENT COMPLETED AT THIS TIME, NO CHANGES SEEN FROM PREVIOUS, VSS AT THIS TIME, WILL CONT. TO MONITOR FOR CHANGES
[2018-12-23] VITALS (24 sets, daily range): BP systolic 94–144; BP diastolic 48–80
--- NOTE | 2018-12-23 01:00 | NUR ---
PT RESTING WITH EYES CLOSED RESP EVEN. VSS, NO DISTRESS NOTED, WILL MONITOR FOR CHANGES
--- NOTE | 2018-12-23 03:00 | NUR ---
PT REASSESSMENT COMPLETED AT THIS TIME, NO CHANGES NOTED. VSS, WILL CONT. TO MONITOR
--- NOTE | 2018-12-23 05:20 | NUR ---
PT GIVEN AN HCG, AND LINEN CHANGE, NO DISTRESS NOTED, VSS, WILL CONT TO MONITOR.
[2018-12-23 06:15] LABS: BASOPHILS 0.1 % (0-2); EOSINOPHILS 1.1 % (0-7); HEMATOCRIT 29.2 % (36.0-48.0); HEMOGLOBIN 9.7 g/dL (12-16); IMMATURE GRANULOCYTES 0.7 % (0-5); MCH 30.2 pg (26.0-34.0); MCHC 33.2 g/dL (31.0-37.0); MEAN PLATELET VOLUME 9.2 fL (7.4-10.4); MONOCYTES 10.9 % (2-11); NEUTROPHILS 79.2 % (40-80); PLATELET COUNT 205 10x3/uL (130-400); RBC 3.21 10x6/uL (4.00-5.40); RDW 14.1 % (11.5-14.5); WBC 11.3 10x3/uL (4.8-10.8)
--- NOTE | 2018-12-23 07:00 | NUR ---
AWAKE AND ALERT SKIN WARM AND DRY. AT BEDSIDE. DENIES PAIN. CHEST DRESSINGS X 3 DRY AND INTACT. LEFT LATERAL DRESSING INTACT. CHEST TUBE TO WATER SEAL DRAINAGE. SERSANG. DRAINAGE. HIDALGO CATH PATENT. ALEX LEFT RADIAL GOOD WAVE FORM. IV LEFT HAND WITHOUT REDNESS OR SWELLING INFUSING WITH PLAMALYTE AT 30 ML HOUR. HEAD OF BED ELEVATED 30 DEGREES.
[2018-12-23 07:16] LABS: ALBUMIN 2.5 g/dL (3.4-5.0); ALKALINE PHOSPHATASE 50 U/L (46-116); ALT (SGPT) 33 U/L (10-68); BILIRUBIN - TOTAL 0.72 mg/dL (0.2-1.3); CALC OSMOLALITY 270 mosm/kg (275-300); CALCIUM 8.4 mg/dL (8.5-10.1); CARBON DIOXIDE 33.2 mmol/L (21.0-32.0); CHLORIDE - SERUM 98 mmol/L (98-107); CREATININE - SERUM 0.5 mg/dL (0.6-1.3); GLUCOSE 135 mg/dL (74-106); MAGNESIUM - SERUM 1.8 mg/dL (1.8-2.4); PHOSPHOROUS 2.7 mg/dL (2.5-4.9); POTASSIUM - SERUM 3.8 mmol/L (3.5-5.1); PROTEIN - SERUM 5.4 g/dL (6.4-8.2); SODIUM 134 mmol/L (136-145); UREA NITROGEN 15 mg/dL (7-18); eGFR NON AFRICAN AMERICAN > 90 mL/min (90-120)
--- NOTE | 2018-12-23 08:00 | NUR ---
REPOSITIONED FOR BREAKFAST. POOR APPETITE. ASSIST WITH MEAL
--- NOTE | 2018-12-23 09:00 | NUR ---
ON BEDPAN PASSING GAS
--- NOTE | 2018-12-23 10:34 | NUR ---
PATIENT CAN TURN HERSELF FROM SIDE TO SIDE MINIMAL ASSISTANCES NEEDED. SOME DIFFICULTY WITH PO MEDS. SON AT BEDSIDE. HEAD OF BED ELEVATED 30. CHEST TUBE LEFT SIDE WITHOUT AIR LEAK. SERSANG DRAINAGE. HIDALGO CATH PATENT. MONITOR 100% PACER RHYTHM.
--- NOTE | 2018-12-23 11:00 | NUR ---
ALEX LEFT RADIAL REMOVED. PRESSURE HELD 5 MIN. NO BLEEDING NOTED. PRESSURE DRESSING APPLIED. MINIMAL BRUISING NOTED AT SITE. PATEINT TOLERATED FAIR.
--- NOTE | 2018-12-23 12:00 | NUR ---
LUNCH SERVED. FAMILY AT BEDSIDE TO ASSIST.
--- NOTE | 2018-12-23 12:20 | NUR ---
DR. CARRERO AND DR. ADAMS HERE
--- NOTE | 2018-12-23 13:18 | NUR ---
DRESSING CHANGE TO LEFT CHEST TUBE DRESSING. DRESSING SATURATED WITH CLEAR FLUID. SITE CLEAN WITH BETADINE, BOX OF 4X4 APPLIED AROUND CHEST TUBE, SECURE AND COVERED WITH TEGRDERM. PATIENT TOLERATED WELL
--- NOTE | 2018-12-23 13:58 | NUR ---
PATIENT RESTING ON RIGHT SIDE. NO DISTRESS.
--- NOTE | 2018-12-23 15:30 | NUR ---
TURNS SELF PILLOW TO LEW FOR COMFORT. HEELS BRIDGED WITH PILLOW HEAD OF BED ELEVATED 30. MINIMAL DISCOMFORT IN BACK AND WHERE CHEST TUBE IS
--- NOTE | 2018-12-23 16:15 | NUR ---
DR. JUNE HERE. NO NEW ORDERS
--- NOTE | 2018-12-23 18:00 | NUR ---
NO DISTRESS WATCHING TV. STATES HIS PAIN IS GOOD RIGHT NOW.
--- NOTE | 2018-12-23 18:00 | NUR ---
AT BEDSIDE. NO DISTRESS. TURNS SELF ON SIDE.
--- NOTE | 2018-12-23 19:00 | NUR ---
SHIFT ASSESSMENT COMPLETE. PT IS A&O X4 WITH NO COMPLAINTS OF PAIN OR DISCOMFORT. PERRLA, 3 MM, BRISK REACTION TO LIGHT. RR SHALLOW, CLEAR LUNG SOUNDS HEARD BILAT THROUGHOUT ALL LOBES, NC ON @ 2 L/MIN. S1S2 AUDIBLE, HR 72 BPM, PACED ON MONITOR. B/L UPPER CHEST DRESSINGS CDI. L LATERAL CHEST TUBE INTACT DRAINING SEROSANG FLUID, H20 SEAL. ABD FLAT, BS ACTIVE X4, NONTENDER TO TOUCH. L HAND PIV INFUSING PLASMALYTE @ 30 ML/HR. L FA PIV S/L. L WRIST DRESSING CDI. CRITICORE INTACT, SARAH URINE NOTED. CYNDI AND SCDS ON AND FUNCTIONING, SKIN WNL. RADIAL AND PEDAL PULSES PALP. GENERALZIED EDEMA ON UPPER AND LOWER EXT. REPOSTIIONED AND ELEVATED LEGS ON PILLOW. AT BEDSIDE. SHE DENIES ANY NEEDS AT THIS TIME. CALL LIGHT IN REACH, BED IN LOWEST POSITION. WILL CONT CLOSE MONITORING IN CVICU.
--- NOTE | 2018-12-23 21:00 | NUR ---
PT STATES THAT SHE HAS PAIN RAITING A 5/10 AT CHEST TUBE INSERTION SITE. SITE IS WNL, DRESSING INTACT. REPOSITIONED TO R SIDE. TYLENOL ADMIN FOR DISCOMFORT. PO MEDS TAKEN WITHOUT DIFFICULTY. AT BEDSIDE. NO FURTHER NEEDS AT THIS TIME. VSS. CALL LIGHT IN REACH, BED IN LOWEST POSITION. WILL CONT WITH POC.
--- NOTE | 2018-12-23 22:40 | NUR ---
RT AT BEDSIDE. PT STATES THAT SHE CAN'T WEAR BIPAP BECAUSE HER MOUTH IS TOO DRY. GAVE HER WATER AND EXPLAINED THE IMPORTANCE OF WEARING THE BIPAP AT NIGHT. SHE STATES THAT SHE WILL TRY FOR A LITTLE BIT. WILL CONT EDUCATING.
--- NOTE | 2018-12-23 23:00 | NUR ---
REASSESSMENT COMPLETE. PT IS CONFUSED TO PLACE, TIME AND SITUATION. REORIENTED. BIPAP ON. NO FURTHER CHANGES AT THIS TIME. SHE DENIES ANY PAIN. AT BEDSIDE. VSS. CALL LIGHT IN REACH, SEE FLOWSHEET FOR FURTHER DETAILS. WILL CONT WITH POC.
[2018-12-24] VITALS (24 sets, daily range): BP systolic 96–159; BP diastolic 49–95
--- NOTE | 2018-12-24 01:00 | NUR ---
PT IS COMPLAINING THAT THE BIPAP IS UNCOMFORTABLE. SWITCHED MASKS, REPOSITIONED. WILL CONT TO ENCOURAGE BIPAP USE. VSS. WILL CONT WITH POC.
--- NOTE | 2018-12-24 03:00 | NUR ---
REASSESSMENT COMPLETE. BIPAP ON, PT IS TOLERATING WELL. VSS. NO CHANGES IN PT CONDITION. HR 80 BPM, PACED. SEE FLOWSHEET FOR FURTHER DETAILS. WILL CONT WITH POC.
--- NOTE | 2018-12-24 05:00 | NUR ---
CHG BATH AND COMPLETE LINEN CHANGE PROVIDED. HIDALGO CARE PROVIDED. VSS. PT TOLERATED WELL. CALL LIGHT IN REACH, BED IN LOWEST POSITION.
[2018-12-24 05:12] LABS: BASOPHILS 0.2 % (0-2); EOSINOPHILS 3.1 % (0-7); HEMATOCRIT 28.7 % (36.0-48.0); HEMOGLOBIN 9.5 g/dL (12-16); LYMPHOCYTES 11.8 % (15-50); MCH 30.3 pg (26.0-34.0); MCHC 33.1 g/dL (31.0-37.0); MCV 91.4 fL (80.0-100.0); MEAN PLATELET VOLUME 9.3 fL (7.4-10.4); MONOCYTES 12.1 % (2-11); NEUTROPHILS 71.8 % (40-80); RBC 3.14 10x6/uL (4.00-5.40); RDW 14.4 % (11.5-14.5); WBC 9.2 10x3/uL (4.8-10.8)
[2018-12-24 05:17] LABS: PLATELET COUNT 256 10x3/uL (130-400)
[2018-12-24 05:22] LABS: CALC OSMOLALITY 269 mosm/kg (275-300); CALCIUM 8.7 mg/dL (8.5-10.1); CARBON DIOXIDE 34.9 mmol/L (21.0-32.0); CHLORIDE - SERUM 96 mmol/L (98-107); CREATININE - SERUM 0.5 mg/dL (0.6-1.3); GLUCOSE 105 mg/dL (74-106); MAGNESIUM - SERUM 1.7 mg/dL (1.8-2.4); PHOSPHOROUS 2.4 mg/dL (2.5-4.9); POTASSIUM - SERUM 3.3 mmol/L (3.5-5.1); SODIUM 135 mmol/L (136-145); UREA NITROGEN 13 mg/dL (7-18); eGFR NON AFRICAN AMERICAN > 90 mL/min (90-120)
--- NOTE | 2018-12-24 06:44 | NUR ---
ELECTROLYTE PROTOCOL FOLLOWED.
--- NOTE | 2018-12-24 07:30 | NUR ---
MEAL TRAY PROVIDED FOR THE PT.
--- NOTE | 2018-12-24 07:47 | NUR ---
REPORT RECEVIED FROM THE OFF GOING RN. SEE ASSESSMENT IN THE PTS FLOW SHEET. PT PACED ON THE MONITOR. 2L VIA NC. GOOD COUGH NOTED. CT TO WATER SEAL. SEROUSANG DRAINAGE NOTED. NO AIR LEAK. FC NOTED WITH CLEAR, YELLOW URINE. CALL LIGHT IN REACH. VSS. WILL CONT POC.
--- NOTE | 2018-12-24 07:53 | NUR ---
DR HELM AT THE PTS BEDSIDE ROUNDING.
--- NOTE | 2018-12-24 09:29 | NUR ---
LEFT WRIST SWOLLEN. PAIN TO PALPATATION BY THE IV SITE. IV DC WITH THE CATHETER TIP INTACT. 22 GAUGE IV STARTED IN THE RIGHT WRIST. PATENT. WILL CONT POC.
--- NOTE | 2018-12-24 10:56 | NUR ---
Nutrition Follow-up: Pt reports small amt of breakfast eaten this AM but that appetite is improving. Likes Boost. Diet: Regular, Boost with meals PO intake: 0-50% Wt: 136# (wt on 12/15 was 142#; loss of 6#) Last BM: 12/24 Labs noted: K+ 3.3, PO4 2.4, Mg 1.7 Meds noted: Lasix, KDur, Neutraphos, MagOx Continue current diet as tolerated. Encourage PO intake. [place] food preferences. MD may consider appetite stimulant. RD following.
--- NOTE | 2018-12-24 11:51 | NUR ---
PHYSCIAL THEARPY ASSISTED THE PT OOB AND INTO THE BEDSIDE CHAIR. SPOKE WITH DR ADAMS. NO LIMITATIONS WITH LEFT UPPER ARM AND NO SLING NEEDED.
--- NOTE | 2018-12-24 11:56 | NUR ---
LUNCH TRAY PROVIDED FOR THE PT. PT DENIES PAIN/NEEDS. CALL LIGHT IN REACH. WILL CONT POC.
--- NOTE | 2018-12-24 12:57 | MORECARE ---
CASE MANAGEMENT DISCHARGE SUMMARY PATIENT: ELVIN MAYS UNIT: [id number] ADM DATE: 12/14/18 AGE: 78 : 40 SEX: F ROOM/BED: D.06 AUTHOR: DAVID CAUSEY PHYSICIAN: REFERRING PHYSICIAN: GEOVANNY GAYLE MD DATE OF SERVICE: 12/24/18 Discharge Plan Patient Name: ELVIN MAYS Facility: [facility]:[place] : 1940 Planned Disposition: Home Anticipated Discharge Date: 12/17/18 Discharge Date: Expected LOS: 3 Initial Reviewer: [email or web address] Initial Review Date: 12/14/2018 Generated: 12/24/18 1:56 pm DCP- Discharge Planning Updated by [email or web address]: Nadya Vázquez on 12/14/18 1:[address] DC PLAN: Return home with her independently. ANTICIPATED DC NEEDS: Needs portable O2, Nebulizer, and Wheelchair. [facility] - [facility] CM met with patient and her daughter Yvonne to complete initial dc planning assessment. CM educated patient on the CM role and verbal consent given by patient to complete assessment. CM verified patient's address, phone number, and emergency contact phone numbers. Patient lives at home with her . She requires assistance with medication management, all transportation, assistance getting in and out of the bath, and meals. Patient is forgetful and her daughter had to assist her with assessment questions. Yvonne reports they have someone with the patient 24/10. At discharge patient plans to return home with her and feels this is a safe discharge. She has Oxygen but no portability. They reported Dr. Velazco's office was supposed to be setting her up with portable oxygen (she has home o2) and a nebulizer. Family member works at [employer] [place] [facility] and stated they have yet to receive order. Yvonne is also requesting a wheelchair as well at pa. [facility] signed for AHP by daughter for dme needs. CM discussed availability of home health, rehab services, and medical equipment. Daughter reports a family member will transport her home at time of discharge. CM will continue to follow and will assist as needed with dc plans/needs. Nadya Vázquez RN, [facility] DCPIA - Discharge Planning Initial Assessment Updated by [id number]: Nadya Vázquez on 12/14/18 2:53 pm * Is the patient Alert and Oriented? Yes * How many steps to enter\exit or inside your home? two * PCP Dr. Gayle * Pharmacy [facility] the [facility] * Preadmission Environment Home with Family * ADLs Partial Dependent * Partial ADLs (Assistance needed) Medication Management Transfers * Equipment Oxygen * Other Equipment Does not have portability. Said she needs portability and a nebulizer at discharge. She also needs a walker * List name and contact numbers for known caregivers / representatives who currently or will assist patient after discharge: Yvonne Sanchez - daughter - [phone] * Verbal permission to speak to the caregivers and representatives has been obtained from the patient. Yes * Community resources currently utilized None * Additional services required to return to the preadmission environment? Yes * Can the patient safely return to the preadmission environment? Yes * Has this patient been hospitalized within the prior 30 days at any hospital? No External Providers External Provider: [facility] Next Contact Date: Service Request Date: Service Type: Resolution: Reviewer: Comments: Last DP export: 12/14/18 2:00 p Patient Name: ELVIN MAYS Page 41413 at 1257 All edits/amendments must be made on the electronic document DICTATION DATE: 12/24/181255 BASE PLY HAND: KEVIN 12/24/181255 RPT#: [id number] DC DATE: STATUS: ADM IN [facility] [address] [place] [address] END OF REPORT
--- NOTE | 2018-12-24 13:05 | MORECARE ---
CASE MANAGEMENT DISCHARGE SUMMARY PATIENT: ELVIN MAYS UNIT: [id number] ADM DATE: 12/14/18 AGE: 78 : 40 SEX: F ROOM/BED: D.06 AUTHOR: DAVID CAUSEY PHYSICIAN: REFERRING PHYSICIAN: GEOVANNY GAYLE MD DATE OF SERVICE: 12/24/18 Discharge Plan Patient Name: ELVIN MAYS Facility: [facility]:[place] : 1940 Planned Disposition: Home Anticipated Discharge Date: 12/17/18 Discharge Date: Expected LOS: 3 Initial Reviewer: [email or web address] Initial Review Date: 12/14/2018 Generated: 12/24/18 2:04 pm DCP- Discharge Planning Updated by [email or web address]: Nadya Vázquez on 12/14/18 1:[address] DC PLAN: Return home with her independently. ANTICIPATED DC NEEDS: Needs portable O2, Nebulizer, and Wheelchair. [facility] - [facility] CM met with patient and her daughter Yvonne to complete initial dc planning assessment. CM educated patient on the CM role and verbal consent given by patient to complete assessment. CM verified patient's address, phone number, and emergency contact phone numbers. Patient lives at home with her . She requires assistance with medication management, all transportation, assistance getting in and out of the bath, and meals. Patient is forgetful and her daughter had to assist her with assessment questions. Yvonne reports they have someone with the patient 24/10. At discharge patient plans to return home with her and feels this is a safe discharge. She has Oxygen but no portability. They reported Dr. Velazco's office was supposed to be setting her up with portable oxygen (she has home o2) and a nebulizer. Family member works at [employer] [facility] [facility] and stated they have yet to receive order. Yvonne is also requesting a wheelchair as well at mo. [facility] signed for AHP by daughter for dme needs. CM discussed availability of home health, rehab services, and medical equipment. Daughter reports a family member will transport her home at time of discharge. CM will continue to follow and will assist as needed with dc plans/needs. Nadya Vázquez RN, [facility] DCPIA - Discharge Planning Initial Assessment Updated by [id number]: Nadya Vázquez on 12/14/18 2:53 pm * Is the patient Alert and Oriented? Yes * How many steps to enter\exit or inside your home? two * PCP Dr. Gayle * Pharmacy [facility] the [facility] * Preadmission Environment Home with Family * ADLs Partial Dependent * Partial ADLs (Assistance needed) Medication Management Transfers * Equipment Oxygen * Other Equipment Does not have portability. Said she needs portability and a nebulizer at discharge. She also needs a walker * List name and contact numbers for known caregivers / representatives who currently or will assist patient after discharge: Yvnone Sanchez - daughter - [phone] * Verbal permission to speak to the caregivers and representatives has been obtained from the patient. Yes * Community resources currently utilized None * Additional services required to return to the preadmission environment? Yes * Can the patient safely return to the preadmission environment? Yes * Has this patient been hospitalized within the prior 30 days at any hospital? No External Providers External Provider: [facility] Next Contact Date: Service Request Date: Service Type: Resolution: Reviewer: Comments: Last DP export: 12/24/18 11:57 a Patient Name: ELVIN MAYS Page [phone] at 1305 All edits/amendments must be made on the electronic document DICTATION DATE: 12/24/18 130 SCIENTIFIC DATABASE CURATOR: KEVIN 12/24/18 1304 RPT#: [id number] DC DATE: STATUS: ADM IN [facility] [address] [place] [address] END OF REPORT
--- NOTE | 2018-12-24 14:45 | NUR ---
DR DAVIDSON AND FLAKO AT THE PTS BEDSIDE. CT DC'D PER DR DAVIDSON. DRESSING C/D/I. UPPER CHEST DRESSINGS REMOVED AND LIS. WELL APPROXIMATED. WILL MONITOR.
--- NOTE | 2018-12-24 15:00 | NUR ---
REASSESSMENT COMPLETED. SEE FLOW SHEET. VSS. WILL ONT POC.
--- NOTE | 2018-12-24 18:30 | NUR ---
PT AWAKE ACTIVE COMPLIANCE WITH METANEB TX. BILATERAL C/D BS RR 20 EQUALATERAL EXCURSION NO SUB C/O DYPSNEA ZERO CYANOSIS FIO2 29% SPO2 98 NO IMMEDIATE S/S RESP DISTRESS AT THIS TIME
--- NOTE | 2018-12-24 19:45 | NUR ---
ASSESSMENT COMPLETE. SEE FLOWSHEET. OOB TO CHAIR WITH MINIMAL ASSISTANCE. AT BEDSIDE.
--- NOTE | 2018-12-24 21:30 | NUR ---
ASSISTED BACK TO BED,
--- NOTE | 2018-12-24 22:00 | MORECARE ---
CASE MANAGEMENT DISCHARGE SUMMARY PATIENT: ELVIN MASY UNIT: [id number] ADM DATE: 12/14/18 AGE: 78 : 40 SEX: F ROOM/BED: D.06 AUTHOR: MARIUMDOC PHYSICIAN: REFERRING PHYSICIAN: GEOVANNY GAYLE MD DATE OF SERVICE: 12/24/18 Discharge Plan Patient Name: ELVIN MAYS Facility: [facility]:[place] : 1940 Planned Disposition: Home Anticipated Discharge Date: 12/17/18 Discharge Date: Expected LOS: 3 Initial Reviewer: [email or web address] Initial Review Date: 12/14/2018 Generated: 12/24/18 11:00 pm Comments DCP- Discharge Planning Updated by [email or web address]: Brittni Lao on 12/24/18 8:[address] CM received order for Nebulizer and Trilogy. CM faxed order and records to [facility] [phone] spoke with Bambi she is getting prescription ready for MD to sign. CM will continue to follow and assist as needed with discharge planning / needs. DCP- Discharge Planning Updated by [email or web address]: Nadya Vázquez on 12/14/18 1:[address] DC PLAN: Return home with her independently. ANTICIPATED DC NEEDS: Needs portable O2, Nebulizer, and Wheelchair. [facility] Patient CM met with patient and her daughter Yvonne to complete initial dc planning assessment. CM educated patient on the CM role and verbal consent given by patient to complete assessment. CM verified patient's address, phone number, and emergency contact phone numbers. Patient lives at home with her . She requires assistance with medication management, all transportation, assistance getting in and out of the bath, and meals. Patient is forgetful and her daughter had to assist her with assessment questions. Yvonne reports they have someone with the patient 24/10. At discharge patient plans to return home with her and feels this is a safe discharge. She has Oxygen but no portability. They reported Dr. Velazco's office was supposed to be setting her up with portable oxygen (she has home o2) and a nebulizer. Family member works at [facility] and stated they have yet to receive order. Yvonne is also requesting a wheelchair as well at dc. [facility] signed for AHP by daughter for dme needs. CM discussed availability of home health, rehab services, and medical equipment. Daughter reports a family member will transport her home at time of discharge. CM will continue to follow and will assist as needed with dc plans/needs. Nadya Vázquez RN, [facility] DCPIA - Discharge Planning Initial Assessment Updated by [email or web address]: Nadya Vázquez on 12/14/18 2:53 pm * Is the patient Alert and Oriented? Yes * How many steps to enter\exit or inside your home? two * PCP Dr. Gayle * Pharmacy [facility] the [facility] * Preadmission Environment Home with Family * ADLs Partial Dependent * Partial ADLs (Assistance needed) Medication Management Transfers * Equipment Oxygen * Other Equipment Does not have portability. Said she needs portability and a nebulizer at discharge. She also needs a walker * List name and contact numbers for known caregivers / representatives who currently or will assist patient after discharge: Yvonne Sanchez - daughter - [phone] * Verbal permission to speak to the caregivers and representatives has been obtained from the patient. Yes * Community resources currently utilized None * Additional services required to return to the preadmission environment? Yes * Can the patient safely return to the preadmission environment? Yes * Has this patient been hospitalized within the prior 30 days at any hospital? No Last DP export: 12/24/18 12:05 p Patient Name: ELVIN MAYS Page 82029 at 2200 All edits/amendments must be made on the electronic document DICTATION DATE: 12/24/182199 JACKET CHANGER: KEVIN 12/24/182199 RPT#: [id number] DC DATE: STATUS: ADM IN [facility] [address] [place] [address] END OF REPORT
[2018-12-25] VITALS (13 sets, daily range): BP systolic 113–168; BP diastolic 60–95
[2018-12-25 03:29] LABS: BASOPHILS 0.3 % (0-2); EOSINOPHILS 3.1 % (0-7); HEMATOCRIT 29.4 % (36.0-48.0); HEMOGLOBIN 9.9 g/dL (12-16); IMMATURE GRANULOCYTES 0.9 % (0-5); LYMPHOCYTES 9.2 % (15-50); MCH 30.7 pg (26.0-34.0); MCHC 33.7 g/dL (31.0-37.0); MEAN PLATELET VOLUME 8.9 fL (7.4-10.4); MONOCYTES 13.4 % (2-11); NEUTROPHILS 73.1 % (40-80); PLATELET COUNT 244 10x3/uL (130-400); RBC 3.23 10x6/uL (4.00-5.40); RDW 14.2 % (11.5-14.5)
[2018-12-25 03:38] LABS: WBC 11.8 10x3/uL (4.8-10.8)
[2018-12-25 04:05] LABS: CALC OSMOLALITY 264 mosm/kg (275-300); CALCIUM 8.4 mg/dL (8.5-10.1); CARBON DIOXIDE 36.8 mmol/L (21.0-32.0); CHLORIDE - SERUM 97 mmol/L (98-107); CREATININE - SERUM 0.5 mg/dL (0.6-1.3); GLUCOSE 104 mg/dL (74-106); MAGNESIUM - SERUM 1.7 mg/dL (1.8-2.4); PHOSPHOROUS 2.4 mg/dL (2.5-4.9); POTASSIUM - SERUM 4.4 mmol/L (3.5-5.1); SODIUM 133 mmol/L (136-145); UREA NITROGEN 11 mg/dL (7-18); eGFR NON AFRICAN AMERICAN > 90 mL/min (90-120)
--- NOTE | 2018-12-25 08:00 | NUR ---
BREAKFAST TRY PROVIDED FOR THE PT. VSS. WILL CONT POC
--- NOTE | 2018-12-25 08:30 | NUR ---
DR HELM AT THE PTS BEDSIDE FOR ROUNDS.
--- NOTE | 2018-12-25 10:13 | NUR ---
REPORT RECEVIED FROM THE OFF GOING RN. SEE ASSESSMENT IN THE PTS FLOW SHEET. PT ASSISTED OOB AND INTO HER BEDSIDE CHAIR. PT TOLERATED WELL. R/L INCISIONS METAL SOLDERER AND WELL APPROXIMATED. VSS. CALL LIGHT IN REACH. WILL CONT POC.
--- NOTE | 2018-12-25 10:28 | NUR ---
PHYSCIAL THEARPY AMBULATED WITH THE PT ABOUT 200 FEET. PT HAD A SLOW BUT STEADY GAIT. WILL CONT POC.
--- NOTE | 2018-12-25 11:45 | NUR ---
MEAL TRAY PROVIDED FOR THE PT. WILL CONT POC.
--- NOTE | 2018-12-25 11:59 | NUR ---
REHAB PRESCREENING Rehab referral received and chart reviewed. Ms. Constantino will be a good candidate for acute inpatient rehab. I will begin her screen and notify case management when completed. She will then be ready for admission to rehab when her physicians feel she is appropriate for discharge. Thank you for this referral! Xena Belle, MEDICAL SECRETARY RECEPTIONIST Rehab PD
--- NOTE | 2018-12-25 15:10 | NUR ---
SPOKE WITH DR DAVIDSON AND DR HELM. OK TO DC TO IN PATIENT REHAB.
[2018-12-25] MEDS ORDERED: LEVOFLOXAC750 MG/150 IV (16:11)
[2018-12-25] MEDS ORDERED: MAXIPIME 2 GM/D52 G1 IV (16:11)
[2018-12-25] MEDS ORDERED: VANCOMYCIN 1 GM/1 G1 IV (16:12)
--- NOTE | 2018-12-25 17:09 | NUR ---
DISCHARGE INSTRUCTIONS WENT OVER WITH THE PT AND HER . NO QUESTIONS AT THIS TIME.
--- NOTE | 2018-12-25 17:42 | NUR ---
PT TRANSFERED TO REHAB VIA WC. PT LEFT IN A STABLE CONDITION. REPORT CALLED TO TANG CEDEÑO [facility]SS[facility].
--- NOTE | 2018-12-25 19:03 | MORECARE ---
CASE MANAGEMENT DISCHARGE SUMMARY PATIENT: ELVIN MAYS UNIT: [id number] ADM DATE: 12/14/18 AGE: 78 : 40 SEX: F ROOM/BED: D.06 AUTHOR: MARIUMDOC PHYSICIAN: REFERRING PHYSICIAN: GEOVANNY GAYLE MD DATE OF SERVICE: 12/25/18 Discharge Plan Patient Name: ELVIN MAYS Facility: [facility]:[place] : 1940 Planned Disposition: Home Anticipated Discharge Date: 12/17/18 Discharge Date: 12/25/2018 Expected LOS: 3 Initial Reviewer: [email or web address] Initial Review Date: 12/14/2018 Generated: 12/25/18 8:03 pm Comments DCP- Discharge Planning Updated by [email or web address]: Brittni Lao on 12/25/18 5:[address] Patient Name: ELVIN MAYS Encounter No: [id number] : 1940 Primary Insurance: MEDICARE A & B Anticipated DC Date: 12-17-2018 Planned Disposition: INPATIENT REHAB External Planned Provider: : [place] VELASQUEZ 12/25/18 @1620 DCP follow-up note: Patient and family in agreement with discharge plan. No changes to plan. Case management will follow and assist as needed. Brittni Lao DCP- Discharge Planning Updated by [email or web address]: Brittni Lao on 12/24/18 8:[address] CM received order for Nebulizer and Trilogy. CM faxed order and records to [facility] [phone] spoke with Bambi she is getting prescription ready for MD to sign. CM will continue to follow and assist as needed with discharge planning / needs. DCP- Discharge Planning Updated by [id number]: Nadya Vázquez on 12/14/18 1:[address] DC PLAN: Return home with her independently. ANTICIPATED DC NEEDS: Needs portable O2, Nebulizer, and Wheelchair. [facility] - [facility] Patient CM met with patient and her daughter Yvonne to complete initial dc planning assessment. CM educated patient on the CM role and verbal consent given by patient to complete assessment. CM verified patient's address, phone number, and emergency contact phone numbers. Patient lives at home with her . She requires assistance with medication management, all transportation, assistance getting in and out of the bath, and meals. Patient is forgetful and her daughter had to assist her with assessment questions. Yvonne reports they have someone with the patient 24/10. At discharge patient plans to return home with her and feels this is a safe discharge. She has Oxygen but no portability. They reported Dr. Velazco's office was supposed to be setting her up with portable oxygen (she has home o2) and a nebulizer. Family member works at [employer] [facility] and stated they have yet to receive order. Yvonne is also requesting a wheelchair as well at [place]. [facility] signed for AHP by daughter for dme needs. CM discussed availability of home health, rehab services, and medical equipment. Daughter reports a family member will transport her home at time of discharge. CM will continue to follow and will assist as needed with dc plans/needs. Nadya Vázquez RN, [facility] DCPIA - Discharge Planning Initial Assessment Updated by [email or web address]: Nadya Vázquez on 12/14/18 2:53 pm * Is the patient Alert and Oriented? Yes * How many steps to enter\exit or inside your home? two * PCP Dr. Gayle * Pharmacy [facility] the [facility] * Preadmission Environment Home with Family * ADLs Partial Dependent * Partial ADLs (Assistance needed) Medication Management Transfers * Equipment Oxygen * Other Equipment Does not have portability. Said she needs portability and a nebulizer at discharge. She also needs a walker * List name and contact numbers for known caregivers / representatives who currently or will assist patient after discharge: Yvonne Sanchez - daughter - [phone] * Verbal permission to speak to the caregivers and representatives has been obtained from the patient. Yes * Community resources currently utilized None * Additional services required to return to the preadmission environment? Yes * Can the patient safely return to the preadmission environment? Yes * Has this patient been hospitalized within the prior 30 days at any hospital? No Coverage Notice Reviewer: [email or web address] Corey Lao Notice Issued Date-Time: 12/25/2018 16:20 Notice Type: IM Discharge Notice Notice Delivered To: Patient Relationship to Patient: Self Labor Contractor Name: Delivery Method: HAND - Hand Delivered Melissa Days: Prior Verbal Notification: Recipient Understood Notice: Yes Recipient Signature: Yes Med Rec Note Co-signed by Attending: Coverage Notice Comment: Last DP export: 12/24/18 9:00 p Patient Name: ELVIN MAYS Page [phone] at 1903 All edits/amendments must be made on the electronic document DICTATION DATE: 12/25/181902 EMERGENCY TECHNICIAN: KEVIN 12/25/181902 RPT#: [id number] DC DATE:12/25/18 STATUS: DIS IN [facility] [address] [place] [address] END OF REPORT
[2018-12-26 05:09] LABS: IMMUNOGLOBULIN E 47 IU/mL (6-495)
--- NOTE | 2018-12-27 16:24 | OP ---
PATIENT NAME: ELVIN MAYS MEDICAL RECORD: [id number] :40 LOCATION:D.[facility]I D.CV06 ADMISSION DATE:12/14/18 SURGEON: MAGDALENO CORDOVA MD DATE OF OPERATION: 12/16/2018 PREOPERATIVE DIAGNOSIS: Sick sinus syndrome with pauses. 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 PROCEDURES: 1. Creation of left-sided infraclavicular pacemaker pocket. 2. Venograms times 2 (nonselective venogram of the left subclavian vein and a selective venogram of the left innominate vein with immediate surgeon interpretation). SURGEON: Magdaleno Cordova MD TIRE SETTER: None. BLOOD LOSS: Minimal. ANESTHESIA: IV sedation with local. COMPLICATIONS: None. DESCRIPTION OF THE PROCEDURE: The patient was seen in the cardiac catheterization laboratory. The left chest was sterilely prepped and draped. A local anesthetic was used to infiltrate the skin and subcutaneous tissues in the anterior superior left infraclavicular chest. A transverse incision was accomplished. I dissected down to the pectoralis fascia. A subcutaneous pocket was created in a caudad direction. Through the pocket, I accessed the left subclavian vein. A guidewire passed in an unusual configuration. Over the guidewire, I advanced a dilator into the left subclavian vein and performed a nonselective left subclavian venogram through this dilator. It showed reflux of dye up into the left internal jugular vein as well as most of the dye entering the heart on the left side. No radiologist was present for this procedure. Static and cine fluoroscopic images were obtained. The surgeon interpretation of the radiographic images is dictated within the body of this operative note. I readvanced the guidewire and it went caudad. I then advanced the dilator over the wire and performed either a left innominate venogram or left subclavian venogram. There was prompt flow of dye into the heart from the left side. We are not going to be able to place a pacemaker from this orientation. Cardiovascular surgery will be consulted. Either a right-sided pacemaker will need to be placed or a pacemaker with a thoracotomy and epicardial leads. Dr. Nagel will take care of obtaining that consultation. The dilator was removed. Hemostasis was immediate. The subdermis was approximated with interrupted 3-0 Vicryls. The skin was approximated with a running intracuticular 3-0 Vicryl. Benzoin and Steri-Strips were applied. The patient was then conveyed to the post-cardiac catheterization procedure area. TRANSINT:[id number] Voice Confirmation ID: [id number] DOCUMENT ID: [id number] OPERATIVE REPORT [id number] ELVIN MAYS ROBERT MD at 1624 CC: GEOVANNY HELM and ELENA CASTANEDA MD [id number] DICTATION DATE: 12/27/18 1121 WINDOWS INFRASTRUCTURE ENGINEER: 12/27/18 1217 DIS IN 12/25/18 [facility] [address] [place] [address]
== END 2018-12-25 18:12 | DRG 242 ==
LOC: D.ER 10:18 → D.CVICU 13:04 → D.M2 13:04 → D.SDCHOLD 12-17 11:50 → D.CVICU 12-20 12:47
PROVIDERS: Family Medicine; Internal Medicine Interventional Cardiology; Internal Medicine Pulmonary Disease; Thoracic Surgery (Cardiothoracic Vascular Surgery); ADMIT Family Medicine; ATTEND Family Medicine
PROC: B51V1ZZ Fluoroscopy of Other Veins using Low Osmolar Contrast (ICD-10-PCS; 2018-12-16)
PROC: 0JH606Z Insertion of Pacemaker, Dual Chamber into Chest Subcutaneous Tissue and Fascia, Open Approach (ICD-10-PCS; principal; 2018-12-16 08:20)
PROC: B5181ZZ Fluoroscopy of Superior Vena Cava using Low Osmolar Contrast (ICD-10-PCS; 2018-12-18)
PROC: 02QR0ZZ Repair Left Pulmonary Artery, Open Approach (ICD-10-PCS; 2018-12-20)
PROC: 02H70JZ Insertion of Pacemaker Lead into Left Atrium, Open Approach (ICD-10-PCS; 2018-12-20)
PROC: 3E1F88Z Irrigation of Respiratory Tract using Irrigating Substance, Via Natural or Artificial Opening Endoscopic (ICD-10-PCS; 2018-12-20)
PROC: 02HL0JZ Insertion of Pacemaker Lead into Left Ventricle, Open Approach (ICD-10-PCS; 2018-12-20 07:30)
DX: I48.0 Paroxysmal atrial fibrillation (principal); J96.21 Acute and chronic respiratory failure with hypoxia; I50.33 Acute on chronic diastolic (congestive) heart failure; G93.41 Metabolic encephalopathy; J18.9 Pneumonia, unspecified organism; E87.1 Hypo-osmolality and hyponatremia; J44.1 Chronic obstructive pulmonary disease with (acute) exacerbation; I49.5 Sick sinus syndrome; I25.10 Atherosclerotic heart disease of native coronary artery without angina pectoris; I10 Essential (primary) hypertension; E78.5 Hyperlipidemia, unspecified; I44.1 Atrioventricular block, second degree; I07.1 Rheumatic tricuspid insufficiency; Z86.73 Personal history of transient ischemic attack (TIA), and cerebral infarction without residual deficits; I11.0 Hypertensive heart disease with heart failure; G47.33 Obstructive sleep apnea (adult) (pediatric); K21.9 Gastro-esophageal reflux disease without esophagitis; M41.9 Scoliosis, unspecified; R53.81 Other malaise

== ENCOUNTER 2018-12-25 18:10 | Inpatient (IN) | payer MEDICARE, OTHER ==
[~2018-12-25] VITALS: Ht 152.4 cm; Wt 69.3 kg
[~2018-12-25 18:10] MED LIST changes: +LEVOFLOXAC750 MG/150 IV; +MAXIPIME 2 GM/D52 G1 IV; +VANCOMYCIN 1 GM/1 G1 IV
[2018-12-25 19:35] VITALS: BP 148/82
--- NOTE | 2018-12-25 19:45 | NUR ---
ADMISSION ASSESSMENT AND HISTORY COMPLETE. AT BEDSIDE. PT IN BED, ALERT AND ORIENTED. R HAND PIV SALINE LOCKED, WNL. CHEST INCISIONS CDI, WNL. DENIES NEEDS AT THIS TIME. CALL LIGHT IN REACH, WILL CONTINUE TO MONITOR.
[2018-12-25 21:29] VITALS: BP 148/82
--- NOTE | 2018-12-25 22:57 | NUR ---
DR EDISON JEREZ. SHAHEED JACKSON APN CALLED BACK. UPDATED GIVEN. WILL CONTINUE TO MONITOR.
--- NOTE | 2018-12-25 23:20 | NUR ---
SPOKE WITH RT ABOUT BIPAP ORDERS, KRISHNA SAID HE WOULD COME PUT HER ON IT AND SET IT UP.
--- NOTE | 2018-12-26 00:30 | NUR ---
C/O RESTLESSNESS, BIPAP MAKING NOISE. FAMILY AT BEDSIDE REQUESTING BIPAP BE TAKEN OFF, CALLED RT AND KRISHNA SAID THAT WAS OKAY. WILL MONITOR O2 SAT. O2 98 ON 2L NC.
--- NOTE | 2018-12-26 02:00 | NUR ---
PT SLEEPING, FAMILY AT BEDSIDE. CALL LIGHT IN REACH. WILL CONTINUE TO MONITOR.
--- NOTE | 2018-12-26 06:00 | NUR ---
MEDS GIVEN PER MAR. PT TOLERATED. DENIES NEEDS AT THIS TIME, WILL CONTINUE TO MONITOR.
[2018-12-26 07:20] LABS: BASOPHILS 0.4 % (0-2); EOSINOPHILS 2.5 % (0-7); HEMATOCRIT 30.7 % (36.0-48.0); HEMOGLOBIN 10.4 g/dL (12-16); IMMATURE GRANULOCYTES 1.8 % (0-5); LYMPHOCYTES 7.9 % (15-50); MCH 30.8 pg (26.0-34.0); MCHC 33.9 g/dL (31.0-37.0); MCV 90.8 fL (80.0-100.0); MONOCYTES 8.7 % (2-11); NEUTROPHILS 78.7 % (40-80); PLATELET COUNT 266 10x3/uL (130-400); RBC 3.38 10x6/uL (4.00-5.40); RDW 14.4 % (11.5-14.5); WBC 12.3 10x3/uL (4.8-10.8)
[2018-12-26 07:51] LABS: CALC OSMOLALITY 263 mosm/kg (275-300); CARBON DIOXIDE 33.3 mmol/L (21.0-32.0); CHLORIDE - SERUM 94 mmol/L (98-107); CREATININE - SERUM 0.4 mg/dL (0.6-1.3); GLUCOSE 127 mg/dL (74-106); POTASSIUM - SERUM 4.5 mmol/L (3.5-5.1); SODIUM 131 mmol/L (136-145); UREA NITROGEN 11 mg/dL (7-18); eGFR NON AFRICAN AMERICAN > 90 mL/min (90-120)
[2018-12-26 08:04] VITALS: BP 161/98
--- NOTE | 2018-12-26 09:34 | NUR ---
PT AM MEDS ADMINISTERED. PT SITTING UP IN WHEELCHAIR AT THIS TIME. IV INFUSING VANC ABX. PT IV REDRESSED AT THIS TIME. FAMILY IN ROOM ASSISTING PT. PT DENIES NEEDS. WCROBBY.
--- NOTE | 2018-12-26 10:06 | NUR ---
PT IV VANC STOPPED RIGHT AFTER STARTING D/T IV LEAKING AND NO LONGER IN PLACE. IV REMOVED. ATTEMPTED X2 TO RESTART IV. WILL NOTIFY YULIYA KYLE OF NEED FOR IV PLACEMENT.
--- NOTE | 2018-12-26 10:41 | NUR ---
IV RESITED TO RT WRIST BY VIDHI ARANDA RN. VANC RESTARTED AT THIS TIME. PT SITTING UP IN WHEELCHAIR AND DENIES NEEDS.WCTM.
[2018-12-26 13:11] VITALS: Ht 152.4 cm; Wt 69.3 kg
--- NOTE | 2018-12-26 15:18 | NUR ---
PT RESTING IN BED, FAMILY AT BEDSIDE, DENIES NEEDS. WCTM.
--- NOTE | 2018-12-26 19:35 | NUR ---
BEDSIDE REPORT COMPLETE. PT SITTING UP IN BED VISITING WITH FAMILY. DENIES ANY NEEDS OR PAIN. SHIFT ASSESSMENT COMPLETE. VS STABLE. PACER INCISION WELL APROXIMATED. CALL LIGHT AND WATER WITHIN REACH, FALL PRECAUTIONS IN PLACE. WILL CONTINUE TO MONITOR
[2018-12-26 21:17] VITALS: BP 125/64
--- NOTE | 2018-12-26 23:38 | NUR ---
QUIET HOURS. PT LYING IN BED, HOB 45 DEGREES, EYES CLOSED RESTING QUIETLY. FAMILY AT BEDSIDE
--- NOTE | 2018-12-27 02:06 | NUR ---
PT LYING IN BED EYES CLOSED RESTING QUIETLY. FAMILY AT BEDSIDE NOTED.
--- NOTE | 2018-12-27 03:50 | NUR ---
ASSISTED PT TO RESTROOM AND BACK TO BED WITH MIN ASSIST. FAMILY AT BEDSIDE. PT HAVING DIFFICULTY BREATHING CHECKED O2SAT 86% ON 2L VIA HF NC. PLACED ON 3L STILL O2 SAT @ 90%, PLACED PT ON 4L O2 SAT CAME UP TO 93%. WILL LEAVE PT ON 4L VIA HF NC. PT RESTING COMFORTABLY.
--- NOTE | 2018-12-27 06:18 | NUR ---
RECHECKED O2SAT 98% ON 4L VIA HF NC. TITRATED DOWN TO 3L O2SAT 95% WILL LEAVE ON 3L FOR NOW AND TITRATE DOWN THRU THE DAY TOLERATED.
--- NOTE | 2018-12-27 07:59 | NUR ---
PATIENT SITTING UP IN WHEELCHAIR AT BEDSIDE TO EAT BREAKFAST. AT BEDSIDE. PATIENT IS ALERT/ORIENT. CALL LIGHT WITHIN REACH. VOICES NO NEEDS. WILL CONTINUE WITH PLAN OF CARE
[2018-12-27 08:00] VITALS: BP 149/79
--- NOTE | 2018-12-27 09:16 | RHP ---
PATIENT: ELVIN MAYS MEDICAL RECORD: [id number] ACCOUNT: [id number] LOCATION:[id number] : 40 ADMISSION DATE: 12/25/18 REHABILITATION HISTORY AND PHYSICAL EXAMINATION POST ADMISSION PHYSICIAN EXAMINATION DATE OF ADMISSION: 12/25/2018. ADMITTING DIAGNOSIS: Fbpsd-ka-rkagzne hypoxic and hypercapnic respiratory failure. HISTORY OF PRESENT ILLNESS: The patient is a 78-year-old female patient with history of atrial fib, and coronary artery disease. She has had coronary artery bypass graft in the past. She has had a left CVA with expressive aphasia, hypertension, hyperlipidemia, chronic back pain. She has got a history of Schatzki's ring and has had dilatation for this. Apparently, she has had a patent ASD and VSD with repair done at 26 and a pacemaker placed in the past. She had this pacemaker placed on 12/20/2018. 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 Post-procedurally she required intubation and bronchoscopy for mucus plug. She was extubated per protocol, but shortly after this developed acute hypoxic respiratory failure and placed on BiPAP. She has got a history of smoking until 1970, but she has also been exposed to secondhand smoke. The patient has a history of pneumonia and bronchitis. She does not have a history of any other infectious etiologies at this time. She did complain though of a 1-month history of shortness of breath, was on oxygen and seeing Dr. Gayle. She had an abnormal spirometry in the office, was seen by Dr. Velazco, started on inhalers. The patient had some sleep apnea and some desaturation. She has had increased oxygen requirements, dyspnea with minimal exertion, paroxysmal nocturnal dyspnea, orthopnea and leg edema going on for quite some time now. Apparently, she has been having some rapid ventricular response. She was started on sotalol. She did have some bradycardia requiring pacemaker placement. Barriers to her discharge include telemetry, cardio management, respiratory management, continued medical management by physicians, 24-hour management by RN, self-care deficit, sundowners, weakness and debility. The patient prior to this admission was completely independent with ADLs and ambulation, was living with her . She is currently mod to max assist with ADLs and ambulation. She will require intensive therapy to get back to her prior level of functioning. COMORBIDITIES: In this patient include tachybrady syndrome, second-degree heart block, pulmonary hypertension, pulmonary edema, shortness of breath, dyspnea on exertion, atrial flutter, paroxysmal atrial fib, small bilateral pleural effusion, COPD, valvular heart disease, prior CVA, expressive aphasia, leukocytosis, chronic back pain, gastroesophageal reflux disease, scoliosis, and debility. PAST MEDICAL HISTORY: Significant for CVA in the past. She has had hypertension, coronary artery disease, atrial fib, menopause. She has had an ASD. She has had depression and anxiety. PAST SURGICAL HISTORY: Includes a pacemaker placement. She has had repair of ASD and VSD in the past. ALLERGIES: IODINE, PLAVIX, ANY TYPE OF CONTRAST, MORPHINE. HISTORY AND PHYSICAL [id number] ELVIN MAYS CURRENT MEDICATIONS: Include Xarelto 15 mg daily, Levaquin 750 mg daily, Floranex 460 daily, aspirin 81 mg daily, furosemide 40 mg b.i.d., vancomycin 1 gram q.12 hours, Maxipime 2 g q.8 hours, Crestor 5 mg q.h.s., sotalol 40 mg b.i.d., potassium 10 mEq b.i.d., and MiraLax 17 grams in 8 ounces of water daily. HABITS: No current alcohol or tobacco use. FAMILY HISTORY: Noncontributory. SOCIAL HISTORY: The patient hopes to return back home per chart request. PHYSICAL EXAMINATION: VITAL SIGNS: Stable. She is afebrile. GENERAL: A morbidly obese female who is in no acute distress. HEENT: Normocephalic and atraumatic. Mucosa moist. NECK: Supple, with no lymphadenopathy. LUNGS: Clear in upper vale, decreased breath sounds in her bases probably secondary to body habitus. CARDIOVASCULAR: Regular rate and rhythm at this time. ABDOMEN: Soft, benign, and nondistended. Positive bowel sounds times 4. EXTREMITIES: No clubbing, cyanosis or edema. NEUROLOGIC: She does have some aphasia and difficulty expressing her needs. LABORATORY DATA: White count is 12.3, H&H of 10 and 31, and platelet count is noted to be 266. Her sodium is 131, potassium 4.5, BUN and creatinine of 11 and 0.4, and blood sugar is 127. ASSESSMENT: This is a 78-year-old female patient admitted to the rehab with a working diagnosis of nacbd-tr-ndkaxms hypoxic respiratory failure. The patient has potential to make improvement. We instituted the following multiple disciplinary therapies including, but not limited to physical, occupational, respiratory, speech, nutritional services, prosthetics and orthotics. Given her complex medical condition and risk for more complications, rehabilitation services cannot be provided at a low level of care such as assisted facility. PLAN: 1. Admit to [facility] for an intensive inpatient therapy to include the following disciplines: A. Physical therapy to improve gait, all transfer skills and bed mobility to a modified independent level. B. Occupational therapy to improve activities of daily living to a modified independent level. C. Case management to assist with discharge planning and placement options. D. Nutrition to assist with nutritional needs. E. Rehabilitation nursing to assist in monitoring the patient's underlying medical conditions and to assist with any type of bowel or bladder management. 2. The patient's current medication and medical care will be continued. 3. The patient will be placed on standard fall precautions. 4. The patient's estimated length of stay is approximately 7-10 days. 5. We will discuss the patient during care team staff meeting this week. TRANSINT:[id number] Voice Confirmation ID: [id number] DOCUMENT ID: [id number] HISTORY AND PHYSICAL [id number] ELVIN MAYS notes whether there has been none or any medical/functional change since admission: - No change since preadmission screen. CORY attests patient continues to be appropriate for IRF: - Continues to be appropriate. GRISELDA HOGAN MD at 0916 CC: [id number] DICTATION DATE: 12/26/18 09 STEAMING CABINET TENDER: 12/26/18 1104 ADM IN [facility] [address] [id number]
--- NOTE | 2018-12-27 10:16 | NUR ---
PATIENT IN ROOM. PATIENT AND LEARNING HOW TO USE TRILOGY.
--- NOTE | 2018-12-27 14:18 | NUR ---
NUTRITION F/U CHART REVIEWED, PT VISIT. ~50% INTAKE LUNCH TODAY. PT REPORTS APPETITE AND PO INTAKE SLOWLY IMPROVING. WILL CONTINUE TO MONITOR. RD FOLLOWING
--- NOTE | 2018-12-27 14:40 | NUR ---
PATIENT IN REHAB ROOM. WORKING WITH OCCUPATIONAL THERAPIST. DENIES ANY PAIN/DISC AT THIS TIME.
--- NOTE | 2018-12-27 18:50 | NUR ---
BEDSIDE REPORT COMPLETE. PT SITTING UP IN CHAIR VISITING WITH FAMILY. NO CONCERNS VOICED. DENIES ANY PAIN. CONTINUES ON 3L VIA HF NC. CALL LIGHT AND WATER WITHIN REACH, FALL PRECAUTIONS IN PLACE. WILL CONTINUE TO MONITOR
[2018-12-27 19:00] VITALS: BP 106/50
--- NOTE | 2018-12-27 23:53 | NUR ---
PT LYING IN BED ON RIGHT SIDE, TRILOGY ON, EYES CLOSED RESTING QUIETLY. FAMILY AT BEDSIDE ASLEEP.
--- NOTE | 2018-12-28 02:39 | NUR ---
PT LYING IN BED EYES CLOSED RESTING QUIETLY.
--- NOTE | 2018-12-28 04:49 | NUR ---
PT LYING IN BED EYES CLOSED RESTING QUIETLY.
[2018-12-28 07:19] LABS: BASOPHILS 0.3 % (0-2); EOSINOPHILS 2.4 % (0-7); HEMATOCRIT 30.9 % (36.0-48.0); HEMOGLOBIN 9.9 g/dL (12-16); IMMATURE GRANULOCYTES 1.2 % (0-5); LYMPHOCYTES 8.1 % (15-50); MCH 30.4 pg (26.0-34.0); MEAN PLATELET VOLUME 9.1 fL (7.4-10.4); MONOCYTES 10.5 % (2-11); NEUTROPHILS 77.5 % (40-80); PLATELET COUNT 304 10x3/uL (130-400); RBC 3.26 10x6/uL (4.00-5.40); RDW 14.7 % (11.5-14.5); WBC 11.7 10x3/uL (4.8-10.8)
[2018-12-28 07:23] LABS: MCV 94.8 fL (80.0-100.0)
[2018-12-28 07:37] VITALS: BP 142/65
[2018-12-28 07:42] LABS: CALC OSMOLALITY 262 mosm/kg (275-300); CALCIUM 8.8 mg/dL (8.5-10.1); CARBON DIOXIDE 38.3 mmol/L (21.0-32.0); CHLORIDE - SERUM 91 mmol/L (98-107); CREATININE - SERUM 0.4 mg/dL (0.6-1.3); GLUCOSE 102 mg/dL (74-106); POTASSIUM - SERUM 3.4 mmol/L (3.5-5.1); SODIUM 132 mmol/L (136-145); UREA NITROGEN 7 mg/dL (7-18); eGFR NON AFRICAN AMERICAN > 90 mL/min (90-120)
--- NOTE | 2018-12-28 08:00 | NUR ---
PT RESTING IN BED WITH EYES OPEN CALL LIGHT IN REACH WILL MONITER
--- NOTE | 2018-12-28 18:20 | NUR ---
PT RESTING IN BED WITH EYES OPEN CALL LIGHT IN REACH WILL MONITER
[2018-12-28 19:00] VITALS: BP 123/57
--- NOTE | 2018-12-28 19:05 | NUR ---
BEDSIDE REPORT COMPLETE. PT SITTING UP IN CHAIR ALERT AND ORIENTED X3. NO CONCERNS VOICED. DENIES ANY PAIN. CONTINUES ON 3L VIA HF NC. AT BEDSIDE. VS STABLE. SHIFT ASSESSMENT COMPLETE. CALL LIGHT AND WATER WITHIN REACH, FALL PRECAUTIONS IN PLACE. WILL CONTINUE TO MONITOR
--- NOTE | 2018-12-28 23:33 | NUR ---
PT LYING IN BED HOB 30 DEGREES EYES CLOSED RESTING QUIETLY. ASLEEP IN CHAIR AT BEDSIDE
--- NOTE | 2018-12-29 02:44 | NUR ---
PT LYING IN BED ON RIGHT SIDE EYES CLOSED RESTING QUIETLY. RR EVEN AND UNLABORED. ASLEEP IN CHAIR AT BEDSIDE. WILL CONTINUE TO MONITOR
--- NOTE | 2018-12-29 05:21 | NUR ---
PT LYING IN BED ON RIGHT SIDE EYES CLOSED RESTING QUIETLY. NO SIGNS OF DISTRESS NOTED. ASLEEP IN CHAIR AT BEDSIDE. CONTINUES ON 3L VIA HF NC. WILL CONTINUE TO MONITOR
--- NOTE | 2018-12-29 07:27 | NUR ---
PT RESTING IN BED WITH EYES OPEN CALL LIGHT IN REACH NO PROBLEMS WILL MONITER
--- NOTE | 2018-12-29 10:30 | NUR ---
PT TRANPORTED TO BATHROOM VIA WHEELCHAIR PT VOIDED YELLOW URINE PT CLEANED HERSELF ASSISTEE TO CHAIR THEN ASSISTED TO BED C-PAP PUT ON PT PER SON AT BEDSIDE CALL LIGHT IN REACH NO PROBLEMS WILL MONITER
--- NOTE | 2018-12-29 10:50 | NUR ---
PT UP TO BATHROOM AGAIN VIA WHEELCHAIR PT VOIDED AGAIN YELLOW URINE PT CLEANED HER SELF HELPED BACK TO WHEELCHAIR PT TRANSFERED BACK TO BED CALL LIGHT IN REACH WILL MONITER SON AT BEDSIDE.
--- NOTE | 2018-12-29 10:55 | NUR ---
PTS DAUGHTER JESUS AT DESK VOICING CONCERNS OVER WEATHER OR NOT CALL LIGHT HAS BEEN ANSWERED IN A TIMELY MANNER I INFORMED HER THAT IT HAD AND I HAD BEEN IN THERE TWICE IN 20 MINUTES TO TAKE HER TO THE BATHROOM AND PUT HER BACK IN BED
--- NOTE | 2018-12-29 11:10 | NUR ---
PT ASSISTED TO BATHROOM VIA WHEELCHAIR PT VOIDED YELLOW URINE. PT CLEANED AND DRYED SELF ASSISTED BACK TO CHAIR PT REQUESTED TO SIT UP IN WHEELCHAIR AT BEDSIDE CALL LIGHT IN REACH SON BY BEDSIDE MATTHIEU HOPKINS
--- NOTE | 2018-12-29 16:14 | NUR ---
PT UP IN CHAIR AT BED SIDE VISITOR AT BEDSIDE TALKING WITH PT CALL LIGHT IN REACH NO PROBLEMS WILL MONITER
[2018-12-29 19:20] VITALS: BP 111/65
--- NOTE | 2018-12-29 19:20 | NUR ---
BEDSIDE REPORT COMPLETE. PT SITTING UP IN CHAIR ALERT AND ORIENTED X4. DENIES ANY NEEDS OR PAIN. AT BEDSIDE. VS STABLE. SHIFT ASSESSMENT COMPLETE. CONTINUES ON 2.5L VIA NC. CALL LIGHT AND WATER WITHIN REACH, FALL PRECAUTIONS IN PLACE. WILL CONTINUE TO MONITOR
--- NOTE | 2018-12-29 23:34 | NUR ---
QUIET HOURS. PT LYING IN BED EYES CLOSED RESTING QUIETLY. TRILOGY ON. ASLEEP IN CHAIR AT BEDSIDE. RR EVEN AND UNLABORED. WILL CONTINUE TO MONITOR
--- NOTE | 2018-12-30 00:30 | NUR ---
PT CAME TO DESK INFORMING NURSE PT IS C/O NOSE STOPPED UP. CHECKED NARES AND NOTED IN RIGHT NARE DRIED UP BLOOD OCCLUDING NARE. MOISTENED WITH SALINE AND PT ADVISED SHE WAS ABLE TO BREATHE A LITTLE BETTER. WILL GET NOSE SPRAY ORDERED FOR TOMORROW AND ADVISE DR. HOGAN.
--- NOTE | 2018-12-30 02:30 | NUR ---
PT LYING IN BED EYES CLOSED RESTING QUIETLY. ASLEEP IN CHAIR AT BEDSIDE. WILL CONTINUE TO MONITOR
--- NOTE | 2018-12-30 05:49 | NUR ---
PT LYING IN BED EYES CLOSED RESTING QUIETLY. CONTINUES ON 2.5L VIA HF NC. AT BEDSIDE. WILL CONTINUE TO MONITOR
--- NOTE | 2018-12-30 08:43 | NUR ---
PT AM MEDS ADMINISTERED. SPOUSE AT BEDSIDE. PT SITTING UP IN CHAIR EATING BREAKFAST. PT DENIES NEEDS. ORDERED SPOUSE BREAKFAST TRAY AT THIS TIME. WCTM.
[2018-12-30 09:07] VITALS: BP 155/83
--- NOTE | 2018-12-30 19:05 | NUR ---
BEDSIDE REPORT COMPLETE. PT SITTING UP IN BED ALERT AND RESTLESS. SOME CONFUSION NOTED, REORIENTED TO TIME AND SITUATION. NO CONCERNS VOICED. DENIES ANY PAIN. AT BEDSIDE. VS STABLE. SHIFT ASSESSMENT COMPLETE. CALL LIGHT AND HYDRATION WITHIN REACH, FALL PRECAUTIONS IN PLACE. WILL CONTINUE TO MONITOR
[2018-12-30 19:15] VITALS: BP 107/48
--- NOTE | 2018-12-30 19:15 | NUR ---
BEDSIDE REPORT COMPLETE. PT LYING IN BED ON RIGHT SIDE EYES CLOSED RESTING QUIETLY. EASILY AROUSED WITH VERBAL STIMULI. RR EVEN AND UNLABORED. CONTINUES ON 2.5L VIA HF NC. VS STABLE. SHIFT ASSESSMENT COMPLETE. ASLEEP IN CHAIR AT BEDSIDE. CALL LIGHT AND HYDRATION WITHIN REACH, FALL PRECAUTIONS IN PLACE. WILL CONTINUE TO MONITOR
--- NOTE | 2018-12-30 20:24 | NUR ---
CALLED DR. HOGAN IN REGARDS TO PATIENTS DAUGHTER WANTING LOW DOSE ATIVAN FOR PT D/T ANXIETY WHEN WEARING TRILOGY AND WILL NOT LEAVE IT ON. LEFT VM FOR DR. HOGAN RETURN CALL.
--- NOTE | 2018-12-31 00:52 | NUR ---
QUIET HOURS. PT LYING IN BED ON RIGHT SIDE EYES CLOSED RESTING QUIETLY. RR EVEN AND UNLABORED. DAUGHTER AT BEDSIDE NOTED.
--- NOTE | 2018-12-31 03:31 | NUR ---
PT LYING IN BED ON RIGHT SIDE EYES CLOSED RESTING QUIETLY. DAUGHTER AT BEDSIDE
--- NOTE | 2018-12-31 05:43 | NUR ---
PT LYING IN BED ON RIGHT SIDE EYES CLOSED RESTING QUIETLY. DAUGHTER AT BEDSIDE.
--- NOTE | 2018-12-31 07:25 | NUR ---
ALERT. NO DISTRESS NOTED. DAUGHTER AT BS. RESP EVEN AND UNLABORED.
[2018-12-31 07:28] LABS: CALC OSMOLALITY 268 mosm/kg (275-300); CHLORIDE - SERUM 95 mmol/L (98-107); CREATININE - SERUM 0.5 mg/dL (0.6-1.3); GLUCOSE 99 mg/dL (74-106); SODIUM 136 mmol/L (136-145); UREA NITROGEN 5 mg/dL (7-18); eGFR NON AFRICAN AMERICAN > 90 mL/min (90-120)
[2018-12-31 07:33] LABS: BASOPHILS 0.8 % (0-2); EOSINOPHILS 3.7 % (0-7); HEMATOCRIT 30.4 % (36.0-48.0); HEMOGLOBIN 9.6 g/dL (12-16); IMMATURE GRANULOCYTES 0.7 % (0-5); LYMPHOCYTES 14.3 % (15-50); MCH 30.1 pg (26.0-34.0); MCHC 31.6 g/dL (31.0-37.0); MCV 95.3 fL (80.0-100.0); MONOCYTES 13.9 % (2-11); NEUTROPHILS 66.6 % (40-80); PLATELET COUNT 313 10x3/uL (130-400); RBC 3.19 10x6/uL (4.00-5.40); RDW 14.7 % (11.5-14.5); WBC 8.9 10x3/uL (4.8-10.8)
[2018-12-31 07:37] LABS: CARBON DIOXIDE 41.7 mmol/L (21.0-32.0); POTASSIUM - SERUM 2.9 mmol/L (3.5-5.1)
[2018-12-31 08:00] VITALS: BP 122/68
--- NOTE | 2018-12-31 11:40 | NUR ---
DR HOGAN NOTIFIED THIS AM OF K+ 2.9 AND CO2 41.7. REQUESTED PER DAUGHTER FOR ATIVAN AT . TRILOGY MAKES HER ANXIOUS. ORDERS RECIEVED.
--- NOTE | 2018-12-31 14:14 | NUR ---
PATIENT ADMITTED TO REHAB FROM ACUTE FLOOR. DR. HELM IS HER PCP. [facility] IS PATIENT CHOICE FOR DME. PATIENT HAS A TRILIOGY , NEBULIZER AND HOME O2 . DISCHARGE PLANS ARE FOR HER TO RETURN HOME . WILL CONTINUE TO FOLLOW WITH PATIENT.
--- NOTE | 2018-12-31 19:01 | NUR ---
GREETED PATIENT AND INTRODUCED MYSELF. PATIENT IS SITTING IN RECLINER WATCHING TV WITH FAMILY MEMBER AT BEDSIDE. O2 IN USE 4L VIA HIGH FLOW NASAL CANNULA. RESPIRATIONS EVEN. NO S/S OF DISTRESS. STATES ONLY INCISIONAL PAIN AT THIS TIME ON LEFT CHEST. NO FURTHER NEEDS AT THIS TIME. CALL LIGHT IN REACH.
[2018-12-31 20:37] VITALS: BP 112/64
--- NOTE | 2019-01-01 00:22 | NUR ---
PATIENT AWAKE SITTING ON SIDE OF BED VISITING WITH FAMILY MEMBER. DENIES ANY NEEDS AT THIS TIME. CALL LIGHT IN REACH.
--- NOTE | 2019-01-01 07:29 | NUR ---
PT RESTING IN BED WITH EYES OPEN CALL LIGHT IN REACH NO PROBLEMS WILL MONITER
[2019-01-01] MEDS ORDERED: HYDROCODON-ACE1 EAC7 PO (08:44)
[2019-01-01] MEDS ORDERED: ATIVAN0.5 MG PO (08:44)
[2019-01-01] MEDS ORDERED: K-DUR20 MEQ PO (08:44)
--- NOTE | 2019-01-01 17:41 | NUR ---
PT RESTING UP IN CHAIR FAMILY AT BEDSIDE CALL LIGHT IN REACH NO PROBLEMS WILL MONITER
[2019-01-01 18:44] VITALS: BP 142/58
--- NOTE | 2019-01-01 18:57 | NUR ---
GREETED PATIENT AND INTRODUCED MYSELF HER NURSE. PATIENT IS LAYING IN BED WATCHING TV WITH FAMILY MEMBER AT BEDSIDE. STATES THAT PAIN IS 2/10 ON RIGHT SIDE OF BACK. RESPIRATIONS EVEN. NO S/S OF DISTRESS. O2 AT 2.5 L PER USE HIGH FLOW NASAL CANNULA. CALL LIGHT IN REACH.
[2019-01-01 20:56] VITALS: BP 122/59
[2019-01-02 07:03] LABS: BASOPHILS 0.8 % (0-2); EOSINOPHILS 4.4 % (0-7); HEMATOCRIT 31.7 % (36.0-48.0); HEMOGLOBIN 9.9 g/dL (12-16); IMMATURE GRANULOCYTES 0.4 % (0-5); LYMPHOCYTES 13.2 % (15-50); MCH 30.6 pg (26.0-34.0); MCHC 31.2 g/dL (31.0-37.0); MONOCYTES 12.1 % (2-11); NEUTROPHILS 69.1 % (40-80); PLATELET COUNT 330 10x3/uL (130-400); RBC 3.24 10x6/uL (4.00-5.40); RDW 14.8 % (11.5-14.5); WBC 7.7 10x3/uL (4.8-10.8)
[2019-01-02 07:18] LABS: CALCIUM 8.9 mg/dL (8.5-10.1); CHLORIDE - SERUM 98 mmol/L (98-107); CREATININE - SERUM 0.4 mg/dL (0.6-1.3); GLUCOSE 106 mg/dL (74-106); SODIUM 138 mmol/L (136-145); eGFR NON AFRICAN AMERICAN > 90 mL/min (90-120)
[2019-01-02 07:20] LABS: CALC OSMOLALITY 273 mosm/kg (275-300); POTASSIUM - SERUM 3.5 mmol/L (3.5-5.1); UREA NITROGEN 8 mg/dL (7-18)
[2019-01-02 07:22] LABS: CARBON DIOXIDE 40.7 mmol/L (21.0-32.0)
[2019-01-02 07:23] LABS: MCV 97.8 fL (80.0-100.0)
--- NOTE | 2019-01-02 07:34 | NUR ---
PT RESTING IN BED WITH EYES OPEN CALL LIGHT IN REACH NO PROBLEMS WILL MONITER
[2019-01-02 07:51] VITALS: BP 134/74
--- NOTE | 2019-01-02 09:00 | NUR ---
DR HOGAN NOTIFIED OF CRITICAL CO2 LEVEL
--- NOTE | 2019-01-02 09:21 | NUR ---
PATIENT DISCHARGING HOME TODAY WITH FAMILY. PATIENT HAS DECLINED HOME HEALTH AT THIS TIME. [facility] WILL PROVIDE O2. DR. HELM 01/10/19 @ 11:00, DR. DAVIDSON 01/16/19 @ 10:15, DR. ANDREW 01/24/19 @ 1:40. PATIENT CHOICE FORM AND IM[facility] FORMS SIGNED, COPY GIVEN TO PATIENT AND FILED IN CHART. DISCHARGE INSTRUCTIONS WITH DISCHARGE MEDICATIONS FAXED TO PCP AND REVIEWED WITH PATIENT AND FAMILY.
[2019-01-02] MEDS ORDERED: K-DUR20 MEQ PO (11:23)
[2019-01-02] MEDS ORDERED: MELATONIN 3 MG1 TAB PO (11:23)
--- NOTE | 2019-01-02 11:50 | NUR ---
PT DISCHARGED TO HOME WITH . VIA WHEELCHAIR DISCHARGE SUMMARY AND MEDS REVIEWED WITH PT AND . TODD CALLED TO ELISA ON [facility].PT LEFT ON PORTABLE 02@2 THAT [address]PPLIED BY [facility] PT. NO QUESTIONS OR CONCERNS PT TOLERATED WELL
--- NOTE | 2019-03-05 09:55 | DS ---
PATIENT:ELVIN MAYS :40 MEDICAL RECORD: [id number] DISCHARGE SUMMARY ADMISSION DATE: 12/25/18 DISCHARGE DATE: 01/02/19 This is a discharge dated 01/02/2019 from inpatient rehabilitation. PRIMARY DIAGNOSIS: Decreased functional ability and ability to provide activities of daily living secondary to wkija-ze-jbgxbhu hypoxic hypercapnic respiratory failure. SECONDARY DIAGNOSES: 1. Valvular heart disease. 2. Tachybrady syndrome. 3. Secondary heart block. 4. Paroxysmal atrial fibrillation. 5. Coronary artery disease. 6. Hyperlipidemia. 7. History of cerebrovascular accident with expressive aphasia. 8. Chronic back pain. 9. COPD. 10. History of permanent pacemaker placement. 11. History of ASD/VSD repair. 12. Obstructive sleep apnea. 13. Depression/anxiety. 14. Moderate pulmonary hypertension. 15. Anemia. 16. Gastroesophageal reflux disease. 17. Hypokalemia. 18. Hyponatremia. CONSULTANTS FOLLOWING THIS HOSPITAL STAY: Pulmonary with Dr. Campbell. HOSPITAL COURSE: Full H and P is located elsewhere on the chart on this 78-year-old female, who was admitted to inpatient rehab for physical therapy and occupational therapy to improve gait, transfer skills, bed mobility, and activities of daily living to a modified independent level. She was evaluated by PT, OT, and ST and their plans of care were followed. She required assisted care for observation and assessment and medication administration. She had supplemental oxygen to keep sats greater than 90% and a Trilogy for use with sleep and as needed during the daytime. She had inhaled medications for respiratory support. She was followed by pulmonary, Dr. Figueroa throughout her rehab stay, antibiotic coverage with Maxipime and vancomycin. She had medications for anxiety. She was cooperative with therapies, progressing towards goals. Case management was involved for discharge planning. Electrolytes were managed by protocol. She was considered stable for discharge on 01/02/2019, having met 3/3 long-term PT goals and made progress in all areas. She met all of her OT and ST goals. DISCHARGE MEDICATIONS: As per discharge medication reconciliation. DISCHARGE DISPOSITION: The patient is discharged home. Further therapy was recommended at discharge, but she declined home care. She had portable oxygen delivered by [facility] and will follow up with primary care and specialist as directed. DISCHARGE SUMMARY REPORT [id number] ELVIN MAYS At least 30 minutes was spent in this discharge activity. TRANSINT:[id number] Voice Confirmation ID: [id number] DOCUMENT ID: [id number] Dictated By: MAX CORBIN I have interviewed/examined the above patient and agree with these documented findings. GRISELDA HOGAN MD at 0958 at 0955 CC: [id number] DICTATION DATE: 03/03/19 1637 YARD PILOT: 03/04/19 0258 DIS IN 01/02/19 [id number] [place] [address]
== END 2019-01-02 13:51 | disposition home or self-care (01) | DRG 189 ==
LOC: D.REHAB 18:10
PROVIDERS: ADMIT Emergency Medicine; ATTEND Emergency Medicine
DX: J96.22 Acute and chronic respiratory failure with hypercapnia (principal); I50.33 Acute on chronic diastolic (congestive) heart failure; G93.41 Metabolic encephalopathy; I48.92 Unspecified atrial flutter; R47.01 Aphasia; J96.21 Acute and chronic respiratory failure with hypoxia; I49.5 Sick sinus syndrome; I44.1 Atrioventricular block, second degree; I27.20 Pulmonary hypertension, unspecified; I48.0 Paroxysmal atrial fibrillation; J44.9 Chronic obstructive pulmonary disease, unspecified; D72.819 Decreased white blood cell count, unspecified; K21.9 Gastro-esophageal reflux disease without esophagitis; R53.81 Other malaise; M41.9 Scoliosis, unspecified; G89.29 Other chronic pain; I11.0 Hypertensive heart disease with heart failure; I69.320 Aphasia following cerebral infarction

== ENCOUNTER → 2019-01-17 08:35 | Outpatient (CLI) | payer MEDICARE, OTHER ==
[2018-12-26 13:11] VITALS: BMI 29.8
[~2019-01-17 08:35] MED LIST changes: +ATIVAN0.5 MG PO; +HYDROCODON-ACE1 EAC7 PO; +K-DUR20 MEQ PO; +MELATONIN 3 MG1 TAB PO
[2019-01-17 11:18] LABS: ALBUMIN 3.6 g/dL (3.4-5.0); BILIRUBIN - DIRECT 0.13 mg/dL (0.00-0.30); BILIRUBIN - INDIRECT 0.28 mg/dL (0.00-1.00); BILIRUBIN - TOTAL 0.41 mg/dL (0.2-1.3); PROTEIN - SERUM 7.8 g/dL (6.4-8.2); THYROID STIMULATING HORMONE 2.75 uIU/mL (0.36-3.74)
[2019-01-18 12:09] LABS: ANA REFLEX - DIRECT Negative (Negative)
== END | disposition home or self-care (01) ==
LOC: D.RT 12-19 08:30
PROVIDERS: ATTEND Internal Medicine Pulmonary Disease
DX: J44.9 Chronic obstructive pulmonary disease, unspecified (principal); I27.20 Pulmonary hypertension, unspecified; R06.00 Dyspnea, unspecified

== ENCOUNTER → 2019-02-18 09:42 | Outpatient (CLI) | payer MEDICARE, OTHER ==
[2018-12-26 13:11] VITALS: BMI 29.8
== END | disposition home or self-care (01) ==
LOC: D.CT 09:42
PROVIDERS: ATTEND Internal Medicine Pulmonary Disease
DX: R94.2 Abnormal results of pulmonary function studies (principal)

== ENCOUNTER → 2019-06-13 18:11 | Outpatient (CLI) | payer MEDICARE, OTHER ==
[2018-12-26 13:11] VITALS: BMI 29.8
[2019-06-13 19:04] LABS: CALC OSMOLALITY 270 mosm/kg (275-300); CALCIUM 9.4 mg/dL (8.5-10.1); CARBON DIOXIDE 38.5 mmol/L (21.0-32.0); CHLORIDE - SERUM 93 mmol/L (98-107); CREATININE - SERUM 0.7 mg/dL (0.6-1.3); GLUCOSE 134 mg/dL (74-106); POTASSIUM - SERUM 3.6 mmol/L (3.5-5.1); SODIUM 135 mmol/L (136-145); UREA NITROGEN 11 mg/dL (7-18); eGFR NON AFRICAN AMERICAN 85 mL/min (90-120)
== END | disposition home or self-care (01) ==
LOC: D.LABREF 18:11
PROVIDERS: ATTEND Nurse Practitioner
DX: R60.9 Edema, unspecified (principal); I48.0 Paroxysmal atrial fibrillation

== ENCOUNTER 2020-06-09 10:47 | Inpatient (IN) | payer MEDICARE, OTHER ==
[~2020-06-09] VITALS: Ht 152.4 cm; Wt 70.3 kg
--- NOTE | ~2020-06-09 | HEMODYNAMI ---
PATIENT:ELVIN MAYS MEDICAL RECORD: [id number] : 40 LOCATION:[facility] D.[address] [facility]# [id number] ADMISSION DATE: 06/09/20 Generatedon:113:55 Patient name: ELVIN MAYS Patient #: [id number] SSN: : 1940 Date of study: 06/11/2020 Page: Of Hemodynamic Procedure Report Patient Data Patient Demographics Procedure consent was obtained First Name: ELVIN Gender: Female Last Name: DAVON : 1940 [facility] Initial: GALLO Age: 80 year(s) Patient #: [id number] Race: Ethnicity: or Additional ID: [id number] Contact details [address]: [address] [place] [address] rd State: [place] City: [place] Zip code: [address] Past Medical History History of disease Date Diagnosis Comments CAD Hypertension Allergies Allergen Reaction Date Comments Reported Other 09/04/2015 plavix,contrast,morphine,clopidogrel allergy bisulfate Other 12/16/2018 IODINE DYE, MORPHINE, PLAVIX allergy Other 12/18/2018 IODINE, CLOPIDIGREL, MORPHINE allergy Admission Admission Data Admission Date: 06/09/2020 Admission Time: 14:57 Room #: D.2122 Lab Results Lab Result Date: 06/11/2020 Lab Result Time: 0:00 Biochemistry Name Units Result Min Max BUN mg/dl 19 --(----)*- 7 18 Creatinine mg/dl 1 --(--*-)-- 0.6 1.3 eGFR ml/min 56 *-(----)-- 90 120 NONAFRICAN CBC Name Units Result Min Max Hemoglobin g/dl 9 *-(----)-- 13.5 17.5 Procedure Procedure Types Cath Procedure Diagnostic Procedure Cardioversion External Procedure Description Procedure Date Procedure Date: 06/11/2020 Procedure Start Time: 13:27 Procedure End Time: 13:52 Procedure Staff Name Function Bethany Ballard RT Monitor Zach Patel MD Performing Physician Vasquez Quesada RN Nurse Randall Rodriguez CRNA Additional personnel Debora Connolly RT Scrub Procedure Data Cath Procedure Estimated blood loss: 5 ml Procedure Complications No complications Procedure Medications Medication Administration Route Dosage 0.9% NaCl I.V. 10 ml/hr Oxygen 8 l/min Refer to Anesthesia Notes for Sedation Medications Hemodynamics Rest HGB: 9 (g/dl) Heart Rate: 89 (bpm) Snapshots Pre Cath Intra NCS Post Cath Vital Signs Time Heart Resp SPO2 etCO2 NIBP (mmHg) Rhythm Pain Sedation Rate (ipm) (%) (mmHg) Status Level (bpm) 13:06:20 86 19 96 0 102/74(88) A-Fib 0 (11) 10(A) , No pain 13:10:23 85 22 90 0 98/65(82) A-Fib 0 (11) 10(A) , No pain 13:14:23 95 29 100 0 101/71(91) A-Fib 0 (11) 10(A) , No pain 13:18:25 91 32 95 0 93/68(76) A-Fib 0 (11) 10(A) , No pain 13:22:25 93 24 96 0 88/68(80) A-Fib 0 (11) 10(A) , No pain 13:26:22 90 20 95 0 91/64(75) A-Fib 0 (11) 10(A) , No pain 13:30:30 66 10 78 0 45/29(37) Paced 0 (11) 7(A) , No pain 13:34:21 70 19 67 0 50/28(43) Paced 0 (11) 7(A) , No pain 13:38:07 69 21 99 0 87/58(71) Paced 0 (11) 8(A) , No pain 13:40:20 69 25 95 0 92/57(76) Paced 0 (11) 8(A) , No pain 13:44:19 69 26 99 0 99/60(72) Paced 0 (11) 9(A) , No pain 13:49:27 68 27 88 0 123/95(119) Paced 0 (11) 9(A) , No pain Medications Time Medication Route Dose Verified Delivered Reason Notes Effectiven ess by by 13:10:04 0.9% NaCl I.V. 10 Vasquez Ovalle Per ml/hr Sangita Quesada physician RN RN 13:10:45 Oxygen simple 8 Vasquez Ovalle for low mask l/min Sanigta Quesada 02 sats RN RN 13:27:03 Refer to Vasquez Ovalle for Anesthesia Sangita Quesada sedation Notes for RN RN Sedation Medications Procedure Log Time Note 12:37:19 Informed consent obtained and on chart 12:37:24 Diagnostic Cath Status : Elective 12:42:47 Lab Result : eGFR NONAFRICAN 56 ml/min 12::47 Lab Result : Hemoglobin 9 g/dl 12::47 Lab Result : BUN 19 mg/dl 12::47 Lab Result : Creatinine 1 mg/dl 12:42:56 Procedure Status Cardioversion. 12:42:59 Bethany Ballard RT(R) sent for patient. Start room use. 12:43:01 Time tracking: Regular hours (M-F 7:00 - 5:00) 12:43:05 Plan of Care:Hemodynamics will remain stable., Cardiac rhythm will remain stable., Comfort level will be maintained., Respiratory function will remain adequate., Patient/ family verbilizes understanding of procedure., Procedure tolerated without complication., Recovers from procedure without complications.. 13:00:41 Patient received from Med II to CCL 2 Alert and oriented. Tansferred to table in Supine position. 13:00:42 Warm blankets applied, and evangelina hugger turned on for patient comfort. 13:00:43 ECG and BP/O2 sat monitors applied to patient. 13:00:43 Correct patient and procedure confirmed by team. 13:05:20 Vital chart was started 13:05:24 Baseline sample Acquired. 13:05:33 Rhythm: atrial fibrillation 13:05:37 Full Disclosure recording started 13:05:41 H&P Date Dictated: 06/11/2020 Within 30 days and on chart., H&P Addendum completed by physician on day of procedure. (MUST COMPLETE FOR ALL OUTPATIENTS). 13:05:43 Pre-op teaching completed and patient verbalized understanding. 13:05:43 Pre-procedure instructions explained to patient. 13:05:44 Family unavailable. 13:05:46 Patient NPO since Midnight. 13:05:47 Is the patient allergic to Iodine/contrast media? No. 13:05:50 Was the patient premedicated? No 13:05:53 Is patient on blood thinner?No 13:07:33 Randall Rodriguez CRNA present and monitoring patient for TIVA. 13:07:42 Patient diabetic? No. 13:07:46 Previous problem with sedation/anesthesia? No ? 13:07:48 Snore? Yes 13:07:51 Sleep apnea? No 13:07:52 Opens mouth fully? Yes 13:07:52 Deviated septum? No 13:07:53 Sticks out tongue? Yes 13:07:55 Airway obstruction? No ? 13:07:57 Dentures? No ? 13:08:04 Patient pain scale 0/10 ?. 13:08:09 IV patent on arrival in left antecubital with 0.9% NaCl at [facility]. 13:08:12 Lab results completed and on chart. 13:08:21 Sharps counted by scrub and verified by R.N. 13:08:21 Alarms reviewed by R. N. 13:08:28 --------ALL STOP TIME OUT------ 13:08:35 Final Timeout: patient, procedure, and site verified with staff and physician. All members of the team are in agreement. 13:08:49 Sedation plan: TIVA Medication:Propofol 13:10:04 0.9% NaCl 10 ml/hr I.V. was administered by Vasquez Quesada RN; Per physician; Verbal order read back and verified. 13:10:45 Oxygen 8 l/min simple mask was administered by Vasquez Quesada RN; for low 02 sats; Verbal order read back and verified. 13:11:34 Quick combo pads placed on patients chest and back. 13:11:37 Defibrillator synced and charged to 200 Joules. 13:27:03 Refer to Anesthesia Notes for Sedation Medications was administered by Vasquez Quesada RN; for sedation; Verbal order read back and verified. 13:27:49 Procedure started. 13:28:53 Shock delivered. 13:29:32 Patient cardioverted to sinus rhythm , paced. 13:29:40 Procedure ended.(Physican Out) 13:31:04 Maximum allowable dose exceeded? No. 13:31:05 Sharps counted by scrub and verified by R.N. 13:31:09 Insertion/operative site no bleeding no hematoma. 13:31:17 Post procedure rhythm: sinus rhythm , paced 13:31:19 Estimated blood loss: 5 ml 13:31:21 Post procedure instruction explained to patient.Patient verbalizes understanding. 13:31:22 Patient needs reinforcement of post procedure teaching. 13:31:28 Procedure and supply charges have been captured, reviewed, submitted and are correct. 13:31:32 Procedure Complication : No complications 13:52:32 Vital chart was stopped 13:52:34 Operative report dictated upon procedure completion. 13:52:35 See physician's report for complete and final results. 13:52:37 Report given to [facility]. 13:52:39 Patient transfered to [facility] with Stretcher. 13:52:41 Full Disclosure recording stopped 13:52:41 Procedure ended. 13:52:47 End room use (Document Last) 13:53:12 Quick Combo opened to sterile field. 13:53:32 Quick Combo opened to sterile field. Device Usage Item Manufacture Quantity Catalog Hospital Part Current Minimal Lot# / Name Number Charge Number Stock Stock Bill mt# Code [employer] 2 [id number] Combo Signature Audit [place] Stage Time Signature Unsigned Intra-Procedure 06/11/2020 Bethany Ballard 1:53:32 PM RT(R) Intra-Procedure 06/11/2020 Vasquez 1:53:52 PM Sangita DWYER Intra-Procedure 06/11/2020 Zach Johnson 1:55:00 PM Hugh KELLEY Signatures Monitor : Bethany Ballard RT Signature : Date : Time : Performing Physician : Signature : Zach Patel MD Date : Time : Nurse : Vasquez Quesada Signature : RN Date : Time : [facility] [address] [place] [address]
[2020-06-09 11:35] LABS: BASOPHILS 0.7 % (0-2); HEMATOCRIT 27.4 % (36.0-48.0); IMMATURE GRANULOCYTES 0.1 % (0-5); LYMPHOCYTE ABS# 0.78 10x3/uL (1.18-3.74); LYMPHOCYTES 10.2 % (15-50); MCH 20.7 pg (26.0-34.0); MCHC 27.4 g/dL (31.0-37.0); MCV 75.5 fL (80.0-100.0); MEAN PLATELET VOLUME 9.6 fL (7.4-10.4); NEUTROPHIL ABS# 5.91 10x3/uL (1.56-6.13); RBC 3.63 10x6/uL (4.00-5.40); RDW 19.3 % (11.5-14.5); WBC 7.7 10x3/uL (4.8-10.8)
[2020-06-09 11:36] LABS: HEMOGLOBIN 7.5 g/dL (12-16); PLATELET COUNT 240 10x3/uL (130-400)
[2020-06-09 11:42] LABS: INR 1.95 (0.85-1.17); PROTIME 20.6 SECONDS (11.6-15.0)
[2020-06-09 11:43] LABS: APTT 38.1 SECONDS (22.8-39.4)
[2020-06-09 11:59] LABS: ALBUMIN 3.1 g/dL (3.4-5.0); ALKALINE PHOSPHATASE 108 U/L (30-120); ALT (SGPT) 31 U/L (10-68); BILIRUBIN - TOTAL 1.52 mg/dL (0.2-1.3); CALC OSMOLALITY 262 mosm/kg (275-300); CALCIUM 8.9 mg/dL (8.5-10.1); CARBON DIOXIDE 39.1 mmol/L (21.0-32.0); CHLORIDE - SERUM 90 mmol/L (98-107); CREATINE KINASE 52 UL (21-215); CREATININE - SERUM 0.9 mg/dL (0.6-1.3); GLUCOSE 90 mg/dL (74-106); POTASSIUM - SERUM 4.6 mmol/L (3.5-5.1); PRO BNP 2729 pg/mL (0-450); PROTEIN - SERUM 7.5 g/dL (6.4-8.2); SODIUM 130 mmol/L (136-145); UREA NITROGEN 19 mg/dL (7-18); eGFR NON AFRICAN AMERICAN 64 mL/min (90-120)
[2020-06-09 12:03] LABS: TROPONIN-I < 0.017 ng/mL (0.000-0.060)
[2020-06-09 12:09] VITALS: BP 93/62
--- NOTE | 2020-06-09 16:00 | NUR ---
ARRIVE TO ROOM VIA STRETCHER FROM ER ACCOMPANIED BY SPOUSE AND HOSPITAL STAFF. ASSIST TO BED FROM STRETCHER MINIMAL ASSIST. O2-5L. [place]ALGO DRAINING BY GRAVITY. REFUSE SCDs DUE TO BILATERAL EDEMA TO LOWER EXTREMITIES. TAKES XARELTO. BUMEX INFUSING TO LT FA IV. CONTINUE ADMISSION PROCESS AND SAFETY PRECAUTIONS. ENCOURAGE INSENTIVE SPIROMETER, PATIENT POOR EFFORT.
[2020-06-09 17:08] VITALS: BP 96/62; BMI 30.3
[2020-06-09 20:00] VITALS: BP 104/61
--- NOTE | 2020-06-09 20:50 | NUR ---
CALL OUT TO DR HICKS AT RTs REQUEST, PT HAS ORDERS FOR BI-PAP BUT NO SETTINGS.
--- NOTE | 2020-06-09 20:50 | NUR ---
PRBCs INFUSING TO LEFT 20 GUAGE PIV, VITALS STABLE. DAUGHTER AT BED SIDE.
--- NOTE | 2020-06-09 21:35 | NUR ---
SECOND PAGE OUT TO DR LOBO TO GET SETTINGS FOR BI PAP ORDER.
--- NOTE | 2020-06-09 22:12 | NUR ---
SPOKE WITH DR HICKS, ORDERS RECIEVED AND CARRIED OUT. BIPAP / AND TITRATE FI02.
[2020-06-10] VITALS: BP 105/62
--- NOTE | 2020-06-10 00:05 | NUR ---
PRBCs FINISHED INFUSING, VITALS STABLE, NO S/S ADVERSE REACTIONS NOTED.
--- NOTE | 2020-06-10 01:52 | NUR ---
I have reviewed this patient and I concur with the Shift Assessment completed by the Licensed Practical Nurse today this shift.
[2020-06-10 04:00] VITALS: BP 110/69
[2020-06-10 04:43] LABS: BASOPHILS 0.6 % (0-2); EOSINOPHILS 1.6 % (0-7); HEMATOCRIT 29.6 % (36.0-48.0); HEMOGLOBIN 8.3 g/dL (12-16); IMMATURE GRANULOCYTES 0.4 % (0-5); LYMPHOCYTE ABS# 0.84 10x3/uL (1.18-3.74); LYMPHOCYTES 12.4 % (15-50); MCH 21.4 pg (26.0-34.0); MCV 76.3 fL (80.0-100.0); MEAN PLATELET VOLUME 9.5 fL (7.4-10.4); MONOCYTES 10.2 % (2-11); NEUTROPHIL ABS# 5.05 10x3/uL (1.56-6.13); NEUTROPHILS 74.8 % (40-80); PLATELET COUNT 204 10x3/uL (130-400); RBC 3.88 10x6/uL (4.00-5.40); WBC 6.8 10x3/uL (4.8-10.8)
[2020-06-10 04:56] LABS: APTT 38.8 SECONDS (22.8-39.4); INR 1.99 (0.85-1.17)
[2020-06-10 05:15] LABS: ALBUMIN 2.9 g/dL (3.4-5.0); ANION GAP 3.6 mmol/L (8-16); BILIRUBIN - TOTAL 1.87 mg/dL (0.2-1.3); CALCIUM 8.6 mg/dL (8.5-10.1); CARBON DIOXIDE 38.9 mmol/L (21.0-32.0); CREATININE - SERUM 0.8 mg/dL (0.6-1.3); MAGNESIUM - SERUM 1.9 mg/dL (1.8-2.4); PHOSPHOROUS 3.5 mg/dL (2.5-4.9); PROTEIN - SERUM 6.8 g/dL (6.4-8.2)
[2020-06-10 05:29] LABS: POTASSIUM - SERUM 3.5 mmol/L (3.5-5.1)
--- NOTE | 2020-06-10 07:23 | HP ---
PATIENT: ELVIN MAYS MEDICAL RECORD: [id number] ACCOUNT: [id number] LOCATION:[address] : 40 ADMISSION DATE: 06/09/20 PCP: GEOVANNY HELM MD HISTORY AND PHYSICAL EXAMINATION REASON FOR ADMISSION: Shortness of breath, peripheral edema, and confusion. HISTORY OF PRESENT ILLNESS: The patient is an 80-year-old female with past history of stroke, congestive heart failure, sick sinus syndrome with pacemaker. She has been requiring increasing Lasix per home health and cardiology at home because of increasing peripheral edema. Resident states she has been really kind of "going down from a physical standpoint." She was brought to the ED, currently on 100 mg of Lasix a day. In the ED, she was arousable, but confused. ProBNP was 27-29. She had marked peripheral edema, congestive heart failure on chest x-ray. Blood gas was obtained showing a pH of 7.34, with a CO2 of 70, pO2 of 74 on 5 liters. She is now being admitted. After discussion with her , he does not want her ventilated and recommends DNR status. We attempted to contact his daughter but not reached her yet. PAST MEDICAL HISTORY: Sick sinus syndrome with pacemaker placement 2018, CAD with 3-vessel CABG in 2001, LAD, circ, RCA and had a PTCA of the RCA in 2005. 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 Had ASD repair in 1959. Thoracic scoliosis, low back pain, diverticulosis, GERD, Schatzki's ring post-dilatation remotely, and atrial fibrillation. PAST SURGICAL HISTORY: Benign breast biopsy times 2, LEEP procedure, CABG as mentioned above 2001, and ASD repair in 1959. FAMILY HISTORY: Positive for hypertension and ASHD. SOCIAL HISTORY: She is , retired, nonsmoker. Requires full care from her , daughter, and home health currently. She is a nondrinker lifelong. MEDICATIONS: Rosuvastatin 5mg at night, Xarelto 15 mg daily, potassium chloride ER 60 mEq daily, furosemide 120 mg daily, and sotalol 40 mg b.i.d. REVIEW OF SYSTEMS: Unobtainable from the patient. states that she has been lethargic for several days with increasing edema and poor p.o. intake. RESPIRATORY: Increasing shortness of breath. No cough. Cardiac: No recent chest pain. As mentioned increasing peripheral edema is noted. GI: No nausea, vomiting, change in stool or blood per rectum. Specifically, she has had no melena or bright red blood per rectum. ENDOCRINE: Denies polyuria, polydipsia, heat or cold intolerance. NEUROLOGIC: Remote history of stroke with mild expressive aphasia and gait disturbance. ENDOCRINE: Denies polyuria. PSYCHIATRIC: Denies depressed mood. ALLERGIES: CLOPIDOGREL. PHYSICAL EXAMINATION: GENERAL: Minimally arousable 80-year-old female who appears ill, but not in HISTORY AND PHYSICAL [id number] LU MAYSYCE GALLO acute respiratory distress. VITAL SIGNS: Show a blood pressure of 102/57, pulse of 82 and irregular, respirations are 20, temperature is 98.8, pulse ox 99%. HEENT: Her eyes are clear. Palpebral conjunctivae are pale. NECK: JVD bilaterally. CHEST: She has crackles in the bases bilaterally. She is not retracting. HEART: Irregular rate without gallop. ABDOMEN: Soft, nontender. EXTREMITIES: She has 3+ bilateral lower extremity edema to the knees. NEUROLOGIC: Not tested due to her mental status currently. LABORATORY DATA: ABG: pH 7.3, pCO2 of 70, pO2 of 74 on 5 liters. INR is 1.95. Sodium is 130, BUN is 19, creatinine 0.9. Bilirubin is 1.52. Cardiac enzymes were negative. ProBNP is 27-29. H and H is 7.5 and 27.4. Chest x-ray as mentioned above. IMPRESSION: 1. Congestive heart failure. 2. CO2 narcosis with CO2 retention. 3. Anemia, etiology unknown suspicion of GI bleed in light of her chronic anticoagulation 4. Sick sinus syndrome with pacemaker , atrial fibrillation, hyponatremia, remote cerebrovascular accident. PLAN: Like to talk to her daughter concerning DNR status. At this time will make DO NOT INTUBATE per 's request, typed and crossed and transfused cautiously. She is on Bumex drip per cardiology currently. Her condition is guarded. We will be place her on BiPAP due to CO2 retention. TRANSINT:[id number] Voice Confirmation ID: [id number] DOCUMENT ID: [id number] GEOVANNY HELM MD at 0723 CC: [id number] DICTATION DATE: 06/09/20 1713 MOTORBOAT MECHANIC HELPER: 06/09/20 1811 ADM IN [facility] [address] [place] [id number]
[2020-06-10 08:00] VITALS: BP 112/69
--- NOTE | 2020-06-10 10:24 | NUR ---
PRBC STARTED, BUMEX GTT STOPPED FOR NOW DUE TO ONLY ONE IV. WILL RESTART HEATH.
[2020-06-10 11:23] VITALS: Ht 152.4 cm; Wt 70.3 kg
[2020-06-10 15:00] VITALS: BP 119/68
[2020-06-10 20:00] VITALS: BP 124/76
--- NOTE | 2020-06-10 20:08 | NUR ---
UP WITH ASSIST TO BSC, SON AT BED SIDE.
--- NOTE | 2020-06-10 20:31 | NUR ---
PT PULLING AT O2 MASK, EXPLAINED TO PT HOW IMPORTANT IT IS TO KEEP HER O2 ON. REPOSITIONED IN BED, HS MEDS GIVEN WITH FRESH ICE WATER.
--- NOTE | 2020-06-11 01:13 | NUR ---
PT AGITATED, ROCKING HER SELF IN BED AND YELLING "HURT, HURT" TORADOL GIVEN IV FOR S/S PAIN.
--- NOTE | 2020-06-11 02:40 | NUR ---
I have reviewed this patient and I concur with the Shift Assessment completed by the Licensed Practical Nurse today this shift.
--- NOTE | 2020-06-11 02:55 | NUR ---
PT IN BED WITH BIPAP ON, PT SINGING AND YELLING OUT AT TIMES.
[2020-06-11 04:00] VITALS: BP 89/53
[2020-06-11 06:01] LABS: BASOPHILS 0.2 % (0-2); EOSINOPHILS 0 % (0-7); IMMATURE GRANULOCYTES 0.2 % (0-5); LYMPHOCYTE ABS# 0.44 10x3/uL (1.18-3.74); MCH 21.9 pg (26.0-34.0); MCHC 28.1 g/dL (31.0-37.0); MCV 77.9 fL (80.0-100.0); MEAN PLATELET VOLUME 9.5 fL (7.4-10.4); MONOCYTES 2.7 % (2-11); NEUTROPHIL ABS# 5.69 10x3/uL (1.56-6.13); NEUTROPHILS 89.9 % (40-80); PLATELET COUNT 183 10x3/uL (130-400); RBC 4.11 10x6/uL (4.00-5.40); RDW 19.8 % (11.5-14.5); WBC 6.3 10x3/uL (4.8-10.8)
[2020-06-11 06:42] LABS: CARBON DIOXIDE 39.2 mmol/L (21.0-32.0)
[2020-06-11 06:43] LABS: POTASSIUM - SERUM 4.2 mmol/L (3.5-5.1)
--- NOTE | 2020-06-11 07:13 | NUR ---
RECEIVE SHIFT REPORT. RESTING IN BED WITH FAMILY AT SIDE. POSSIBLE CARDIOVERSION TODAY, HAS NOT BEEN NPO SINCE MIDNIGHT. NPO SINCE 0500. SCD'S ON. CALL LIGHT IN REACH. WILL CONTINUE POC AND SAFETY PRECAUTIONS.
[2020-06-11 08:27] VITALS: BP 102/59
--- NOTE | 2020-06-11 12:50 | NUR ---
WENT TO SHEETMETAL TRADES WORKER FOR CARDIVERSION.
--- NOTE | 2020-06-11 15:43 | NUR ---
PATIENT CURRENTLY ON BIPAP 40%, O2 SAT WAS 69 WHEN DISABILITY INSURANCE CLAIM EXAMINER CHECKED VS PATIENT WAS ON SIMPLE MASK 6L. CURRENTLY 94% ON BIPAP.
[2020-06-11 17:01] VITALS: BP 82/50
[2020-06-11 19:51] VITALS: BP 103/70
[2020-06-11 23:32] VITALS: BP 91/61
--- NOTE | 2020-06-12 03:30 | NUR ---
PT HAS BEEN RESTING QUIETLY DURING THE NIGHT. PRN TRAMADOL PROVIDED AT HS PER PRN ORDER. PT HAS BEEN CONFUSED BUT PLEASENTLY SO. DAUGHTER AT BEDSIDE. PT ONLY BECAME AXIOUS AND TACHYPENIC WHEN BIPAP PLACED. BIPAP NOW ON WITH REPORTS FROM DAUGHTER THAT PT HAD BECOME SOB, HR 90 AND PACED PER REGISTRAR NURSES' REGISTRY. REPOSITONED FOR COMFORT. SAFETY PRECAUTIONS IN PLACE. CL IN REACH. WILL CTM.
[2020-06-12 04:20] VITALS: BP 110/65
--- NOTE | 2020-06-12 07:05 | NUR ---
RECEIVE SHIFT REPORT. RESTING IN BED WITH EYES CLOSED. AT BEDSIDE. NO S/S OF DISTRESS PRESENT AT THIS TIME. CALL LIGHT IN REACH. WILL CONTINUE POC AND SAFETY PRECAUTIONS.
[2020-06-12 08:50] VITALS: BP 113/73
--- NOTE | 2020-06-12 09:41 | EC ---
PATIENT:ELVIN MAYS DATE OF SERVICE: 06/09/20 SEX: F MEDICAL RECORD: [id number] DATE OF : 40 LOCATION:D.M2 D.212 AGE OF PATIENT: 80 ADMISSION DATE: 06/09/20 REFERRING PHYSICIAN: INTERPRETING PHYSICIAN: ELENA CASTANEDA MD ECHOCARDIOGRAM REPORT ECHO CHARGES 4 ECHO COMPLETE Date: 06/10/20 CLINICAL DIAGNOSIS: AAA ECHOCARDIOGRAPHIC MEASUREMENTS (adult normal given) AC root (d.<3.7cm) 2.6 cm LV Septum d (<1.2 cm> 1.2 cm Valve Excursion 1.3 cm LV Septum (systole) 1.3 cm Left Atria (s.<4.0cm> 3.5 cm LVPW d(<1.2cm) 0.9 cm RV (d.<2.3cm) 3.5 cm LVPW (sytole) 1.3 cm LV diastole(<5.6CM) 4.8 cm MV E-F(>70mm/sec) cm LV systole 2.7 cm LVOT Diameter 1.5 cm MV exc.(>10mm) 1.4 cm Est.ejection fraction (50-75%) % DOPPLER: LVIT cm/sec A 37 cm/sec E 118 cm/sec LA cm/sec RVSP 53 mmHg LVOT 151 cm/sec AOP1/2T m/s Asc. Ao 167 cm/sec RVOT 57 cm/sec RA cm/sec PA 64 cm/sec AV Gradient Peak 11.2 mmHg AV Mean 4.8 mmHg AV Area 1.9 cm MV Gradient Peak 7.8 mmHg MV Mean 2.6 mmHg MV Area cm COMMENTS: Hat Parts Cutter Machine: Cely AKBARLUI JEAN Ship Keeper: 3 Dr. Nagel TAPE# Pericardial Effusion N DATE OF SERVICE: Adequate 2D, color flow imaging, spectral Doppler, and M-Mode. FINDINGS: No LVH. LV internal dimension is normal. Wall motion is normal. EF is greater than or equal to 55%. Aortic valve is sclerosed without stenosis by Doppler interrogation. Left atrium is normal at 3.5 cm. Mitral valve shows no prolapse. Trace MR. Right-sided chamber is grossly normal. Trace TR. TRANSINT:[id number] Voice Confirmation ID: [id number] DOCUMENT ID: [id number] ECHOCARDIOGRAM REPORT [id number] ELVIN MAYS ELENA CASTANEDA MD at 0941 CC: [id number] DICTATION DATE: 06/11/20 08 HOMEOPATHIC DOCTOR: 06/11/20 0849 ADM IN [place] [id number] [place] [id number]
--- NOTE | 2020-06-12 09:41 | OP ---
PATIENT NAME: ELVIN CONSTANTINO MEDICAL RECORD: [id number] :40 LOCATION:D.M2 D.2121 ADMISSION DATE:06/09/20 SURGEON: ELENA CASTANEDA MD DATE OF OPERATION: 06/11/2020 PROCEDURE: Cardioversion. INDICATION: Atrial fibrillation. PROCEDURE: After general sedation via tube anesthesia, a single synchronized shock at 200 joules was successful in restoring atrial flutter to normal sinus rhythm. IMPRESSION: Successful cardioversion on Elvin Constantino. During the procedure, the patient was monitored continuously with pulse oximetry, telemetry, and noninvasive blood pressure monitoring. TRANSINT:[id number] Voice Confirmation ID: [id number] DOCUMENT ID: [id number] ELENA CASTANEDA MD at 0941 CC: [id number] DICTATION DATE: 06/11/20 1341 TOUR NARRATOR: 06/11/20 1635 ADM IN [facility] [address] [place] [id number]
[2020-06-12 13:24] VITALS: BP 108/69
--- NOTE | 2020-06-12 13:36 | NUR ---
Nutrition Follow-up: S/p cardioversion yesterday. Had not eaten much breakfast at time of visit this AM. Noted requesting home hospice @ d/c. Diet: Low Na Wt: 155# (06/10) Labs noted: Na 131, Glu 107 Meds noted: Ferrous Sulfate, Prednisone, Bumex, KDur, Protonix, electrolyte protocol -Encourage PO intake and honor food preferences within diet restrictions. -Offer nutrition supplements. -RD will follow up within 3-4 days.
[2020-06-12 16:44] VITALS: BP 93/50
[2020-06-12 19:35] VITALS: BP 106/77
[2020-06-13 03:45] VITALS: BP 115/64
[2020-06-13 04:42] LABS: BASOPHILS 0 % (0-2); EOSINOPHILS 0 % (0-7); HEMATOCRIT 34.5 % (36.0-48.0); HEMOGLOBIN 9.7 g/dL (12-16); IMMATURE GRANULOCYTES 0.1 % (0-5); LYMPHOCYTE ABS# 0.51 10x3/uL (1.18-3.74); LYMPHOCYTES 6.4 % (15-50); MCH 22.4 pg (26.0-34.0); MCHC 28.1 g/dL (31.0-37.0); MCV 79.7 fL (80.0-100.0); MEAN PLATELET VOLUME 9.9 fL (7.4-10.4); MONOCYTES 4.6 % (2-11); NEUTROPHIL ABS# 7.12 10x3/uL (1.56-6.13); NEUTROPHILS 88.9 % (40-80); PLATELET COUNT 152 10x3/uL (130-400); RBC 4.33 10x6/uL (4.00-5.40); RDW 21.8 % (11.5-14.5)
[2020-06-13 05:08] LABS: ANION GAP 6.7 mmol/L (8-16); CALCIUM 9.2 mg/dL (8.5-10.1); CARBON DIOXIDE 34.6 mmol/L (21.0-32.0)
[2020-06-13 05:10] LABS: POTASSIUM - SERUM 5.3 mmol/L (3.5-5.1)
[2020-06-13 08:39] VITALS: BP 106/53
--- NOTE | 2020-06-13 09:26 | NUR ---
PT AWAKE AND ORIENTED, SITTING UP ON SIDE OF BED EATING BREAKFAST, ASSISTING. PT TOOK ALL PO MEDICATIONS WITHOUT COMPLICATIONS, WITHHELD K D/T ELIVATED K IN LAB DRAW. PT STATES SHE'S FEELING FINE. STATES SHE APPEARS TO BE DOING BETTER THIS AM THAN PREVIOUS DAYS. AID ASSISTED BACK IN BED, CURRENTLY LYING SEMI FOWLERS WITH SIMPLE MASK IN PLACE RESTING COMFORTABLY. CLEAN AND DRY. CL IN REACH, SRX2, AT BEDSIDE.
--- NOTE | 2020-06-13 09:57 | NUR ---
I have reviewed this patient and I concur with the Shift Assessment completed by the Licensed Practical Nurse today this shift.
--- NOTE | 2020-06-13 11:15 | NUR ---
PT STATES IT FEELS THOUGH SHE NEEDS TO URINATE, ASSURED PT AND FAMILY THAT HER HIDALGO CATH IS IN AND WORKING APPROPRIATELY. NIGHT SHFIT REPORTED PT WAS ON BIPAP FOR 5HRS. SON AT BEDSIDE, FATHER LEFT. CL IN REACH, SRX2.
[2020-06-13 12:20] VITALS: BP 111/78
--- NOTE | 2020-06-13 14:14 | NUR ---
PT AWAKE AND CONFUSED, SON AT BEDSIDE. TOLERATING BIPAP AT THIST MARY THOUGH BECOMING INCREASINGLY CONFUSED WITH TIME WHICH IS PTS NORMAL DOCUMENTED AND REPORTED BEHAVIOR WHEN ON BIPAP. CL INR EACH, SRX2.
[2020-06-13 15:41] LABS: BILIRUBIN NEGATIVE (NEGATIVE); KETONE NEGATIVE (NEGATIVE); NITRITE NEGATIVE (NEGATIVE); UROBILINOGEN NORMAL mg/dL (< 2)
[2020-06-13 15:49] LABS: SQUAMOUS EPITHELIAL NONE SEEN HPF (0-4)
[2020-06-13 15:50] LABS: BACTERIA MODERATE HPF (NONE SEEN)
--- NOTE | 2020-06-13 16:24 | NUR ---
PT AWAKE AND CONFUSED, LYING IN BED WITH SIMPLE MASK ON. PT IS HAVING INTERMIATE EPISODES OF EXTREME EMOTIONAL DISTRESS. FAMILY MEMBER AT BEDSIDE GENERALLY UNHELPFUL LETTING HER REMAIN UPSET WHILE ALSO NOT ALERTING ME TO THE PTS DISTRESS. PT CALM AT THIST MARY. CL IN REACH, SRX2.
[2020-06-13 16:32] VITALS: BP 115/48
--- NOTE | 2020-06-13 17:19 | NUR ---
PT DID NOT HAVE B.M TODAY, UNABLE TO COLLECT STOOL SPECIMEN.
[2020-06-13 22:19] VITALS: BP 107/55
[2020-06-14 00:30] VITALS: BP 109/45
--- NOTE | 2020-06-14 01:20 | NUR ---
APPLIED BILEVEL 12/5 10 40% PT YULIANA APPLICATION WELL
[2020-06-14 04:30] VITALS: BP 101/74
--- NOTE | 2020-06-14 06:14 | NUR ---
PT HAS WORN BIPAP FOR 5 HOURS CONT, TONIGHT AND THE NIGHT BEFORE. PT BECOMES SCARED AND ANXIOUS WITH IT ON BUT HAS KEPT IT ON. PIV TO LEFT FA OUT, PT REMOVED BY PT, CATHETER TIP INTACT. NEW 22G SITED TO LEFT HAND X3 ATTEMPTS. PT REMAINS AT BEDSIDE. URINE IN HIDALGO TURID/DARK, FLUSHES WELL NEW STAT LOC APPLIED. BIPAP REMOVED AND ANXIETY DECREASES. NO FURTHER NEEDS EXPRESSED. CL IN REACH.
[2020-06-14 06:59] LABS: BASOPHILS 0 % (0-2); EOSINOPHILS 0.1 % (0-7); HEMATOCRIT 34.1 % (36.0-48.0); HEMOGLOBIN 9.6 g/dL (12-16); IMMATURE GRANULOCYTES 0.1 % (0-5); LYMPHOCYTE ABS# 0.59 10x3/uL (1.18-3.74); LYMPHOCYTES 8.8 % (15-50); MCH 22.2 pg (26.0-34.0); MCHC 28.2 g/dL (31.0-37.0); MCV 78.9 fL (80.0-100.0); MEAN PLATELET VOLUME 9.8 fL (7.4-10.4); MONOCYTES 8.5 % (2-11); NEUTROPHILS 82.5 % (40-80); PLATELET COUNT 180 10x3/uL (130-400); RBC 4.32 10x6/uL (4.00-5.40); RDW 21.9 % (11.5-14.5); WBC 6.7 10x3/uL (4.8-10.8)
[2020-06-14 07:17] LABS: ANION GAP 4.6 mmol/L (8-16); CALCIUM 9.5 mg/dL (8.5-10.1); CREATININE - SERUM 1.1 mg/dL (0.6-1.3)
[2020-06-14 07:30] LABS: CARBON DIOXIDE 40.4 mmol/L (21.0-32.0)
[2020-06-14 08:51] VITALS: BP 112/64
[2020-06-14 12:25] VITALS: BP 97/58
--- NOTE | 2020-06-14 14:19 | NUR ---
PT CONFUSED, BOUTS OF EXTREME IRRITATIONO NOTED THROUGHT THE DAY. INCREASINGLY TIME PASSES. PT BEGAN PULLING OUT HIDALGO CATHETER AND SCREAMING THAT IT WAS CAUSING HER PAIN, UPON INSPECTION, NOTED PTS BED WAS SOAKED WITH URINE. CHANGED PT, REMOVED DEFECTIVE HIDALGO, PLACED NEW 16F HIDALGO PER STERILE NURSING PROTOCOL. PT BECAME VOILENT DIGGING HER NAILS INTO ANOTHER NURSE. AFTER NEW HIDALGO WAS PLACED, PT CALMED DOWN AND AHS BEEN RESTING COMFORTABLY SINCE. SON AT BEDSIDE. CL IN REACH, SRX2. FAMILY WANTS PT TO COME HOME ON HOSPICE TODAY IF POSSIBLE. AWAITING NEUROLOGY PHYSICIAN TO COME EVALUATE PT AND ADMIT APPROPRIATE FOR HOME HOSPICE. SPOKE WITH MULTIPLE FAMILY MEMBERS INCLUDING THE , ALL VERBALZIE CONSENT AND UNDERSTANDING THAT THE ABOVE WRITTEN IS THE GOAL FOR TODAY. PT REFUSES TO WEAR BIPAP, NOTED THAT IT DOES MAKE PT INCREASINGLY AGITATED AND UNCOMFORTABLE. WEARING SIMPLE MAKE, PT PULSE OX O2 READING AT 91%. NOTABLE THAT PT LIPS ARE TINTED BLUE.
--- NOTE | 2020-06-14 14:28 | MORECARE ---
CASE MANAGEMENT DISCHARGE SUMMARY PATIENT: ELVIN CONSTANTINO UNIT: [id number] ADM DATE: 06/09/20 AGE: 80 : 40 SEX: F ROOM/BED: D.8025 AUTHOR: DAVID CAUSEY PHYSICIAN: REFERRING PHYSICIAN: GEOVANNY HELM MD DATE OF SERVICE: 06/14/20 Discharge Plan Patient Name: ELVIN CONSTANTINO Facility: [facility]:[place] : 1940 Planned Disposition: Hospice Home Anticipated Discharge Date: Discharge Date: Expected LOS: Initial Reviewer: [id number] Initial Review Date: 06/09/2020 Generated: 06/14/20 3:27 pm Comments DCP- Discharge Planning Updated by [email or web address]: Lg Mccain on 06/14/20 12:[address] Telephone conversation with patient at 1202 on 14 June 2020 to complete DC plan and needs. Spoke with Yvonne Sanchez [phone]) daughter of patient. Yvonne stated that the family would like [facility]. JADON telephonically signed and placed in chart. Yvonne stated that her father will be the primary contact for Hospice. Yvonne stated that her father is home today (Monday) preparing the home for a Monday admit with Hospice. Spoke with Good of [facility]. Referral clinicals faxed to [facility]. Yvonne voiced no other needs at this time and is satisfied with DC plan. DC IMM telephonically explained, signed, and placed on chart per current Isolation protocols. CM will continue to follow and will assist as needed with dc plans/needs. DCPIA - Discharge Planning Initial Assessment Updated by [email or web address]: Lg Mccain on 06/14/20 2:23 pm * Is the patient Alert and Oriented? Yes * How many steps to enter\exit or inside your home? 2/0 * PCP * Pharmacy [facility] * Preadmission Environment Home with Family * ADLs Partial Dependent * Partial ADLs (Assistance needed) Bathing Dressing Eating Medication Management Toileting Transfers * Equipment Bedside Commode BIPAP Walker * Other Equipment n/a * List name and contact numbers for known caregivers / representatives who currently or will assist patient after discharge: Yvonne Mayorga ([phone]) * Verbal permission to speak to the caregivers and representatives has been obtained from the patient. Yes * Community resources currently utilized Other * Please name any agencies selected above. [facility] * Additional services required to return to the preadmission environment? Yes * Can the patient safely return to the preadmission environment? Yes * Has this patient been hospitalized within the prior 30 days at any hospital? No External Providers External Provider: [facility] *(provides inpt [facility] Next Contact Date: Service Request Date: Service Type: Resolution: Reviewer: Comments: Coverage Notice Reviewer: [id number] Corey Mccain Notice Issued Date-Time: 06/14/2020 12:02 Notice Type: IM Discharge Notice Notice Delivered To: Family Member Relationship to Patient: Spouse Room Designer Name: EMIL CONSTANTINO Delivery Method: MAIL - Mail Melissa Days: Prior Verbal Notification: Recipient Understood Notice: Yes Recipient Signature: Yes Med Rec Note Co-signed by Attending: Coverage Notice Comment: DC IMM telephonically explained, signed, and placed on chart per current Isolation protocols Reviewer: [id number] Corey Mccain Notice Issued Date-Time: 06/14/2020 12:02 Notice Type: Patient Choice Letter Notice Delivered To: Family Member Relationship to Patient: Spouse Room Designer Name: Emil Constantino Delivery Method: MAIL - Mail Melissa Days: Prior Verbal Notification: Recipient Understood Notice: Yes Recipient Signature: Yes Med Rec Note Co-signed by Attending: Coverage Notice Comment: [facility] Patient Name: ELVIN CONSTANTINO Page [phone] at 1428 All edits/amendments must be made on the electronic document DICTATION DATE: 06/14/20 1427 EDGE STRIPPER: KEVIN 06/14/20 1427 RPT#: [id number] DC DATE: STATUS: ADM IN [facility] [address] [place] [address] END OF REPORT
[2020-06-14 16:45] VITALS: BP 78/43
--- NOTE | 2020-06-14 17:20 | NUR ---
I have reviewed this patient and I concur with the Shift Assessment completed by the Licensed Practical Nurse today this shift.
[2020-06-14 19:00] VITALS: BP 63/35
--- NOTE | 2020-06-14 22:14 | NUR ---
PAGE TO DR SOLIZ, INSOLE AND OUTSOLE SPLITTER FOR DR HELM. REPORTED PT'S . CONNECTED HIM TO ER TO SPEAK WITH ER PHYSICIAN TO PRONOUNCE.
--- NOTE | 2020-06-14 22:30 | NUR ---
POST MORTEM CARE PROVIDED. PIV TO LEFT HAND DC'D, TIP INTACT. HDIALGO DC'D, TIP INTACT.
--- NOTE | 2020-06-14 23:49 | NUR ---
FAMILY HAS LEFT FOR HOME. PT HAS BEEN PRONOUNCED BY DR HERNANDEZ FROM ER. HOME NOTIFIED. NNEKA CALLED AND RULED PATIENT OUT. AWAITING ARRIVAL OF HOME AT THIS TIME.
--- NOTE | 2020-06-15 01:04 | NUR ---
[facility] HOME HERE TO RECEIVE PT.
--- NOTE | 2020-06-15 08:23 | MORECARE ---
CASE MANAGEMENT DISCHARGE SUMMARY PATIENT: ELVIN CONSTANTINO UNIT: [id number] ADM DATE: 06/09/20 AGE: 80 : 40 SEX: F ROOM/BED: D.0421 AUTHOR: DAVID CAUSEY PHYSICIAN: REFERRING PHYSICIAN: GEOVANNY HELM MD DATE OF SERVICE: 06/15/20 Discharge Plan Patient Name: ELVIN CONSTANTINO Facility: [facility]:[place] : 1940 Planned Disposition: Hospice Home Anticipated Discharge Date: Discharge Date: 06/14/2020 Expected LOS: Initial Reviewer: [email or web address] Initial Review Date: 06/09/2020 Generated: 06/15/20 9:23 am Comments DCP- Discharge Planning Updated by [email or web address]: Lg Mccain on 06/14/20 12:[address] Telephone conversation with patient at 1202 on 14 June 2020 to complete DC plan and needs. Spoke with Yvonne Sanchez [phone]) daughter of patient. Yvonne stated that the family would like [facility]. JADON telephonically signed and placed in chart. Yvonne stated that her father will be the primary contact for Hospice. Yvonne stated that her father is home today (Monday) preparing the home for a Monday admit with Hospice. Spoke with Good of [facility]. Referral clinicals faxed to [facility]. Yvonne voiced no other needs at this time and is satisfied with DC plan. DC IMM telephonically explained, signed, and placed on chart per current Isolation protocols. CM will continue to follow and will assist as needed with dc plans/needs. DCPIA - Discharge Planning Initial Assessment Updated by [id number]: Lg Mccain on 06/14/20 2:23 pm * Is the patient Alert and Oriented? Yes * How many steps to enter\exit or inside your home? 2/0 * PCP * Pharmacy [facility] * Preadmission Environment Home with Family * ADLs Partial Dependent * Partial ADLs (Assistance needed) Bathing Dressing Eating Medication Management Toileting Transfers * Equipment Bedside Commode BIPAP Walker * Other Equipment n/a * List name and contact numbers for known caregivers / representatives who currently or will assist patient after discharge: Yvonne Mayorga ([phone]) * Verbal permission to speak to the caregivers and representatives has been obtained from the patient. Yes * Community resources currently utilized Other * Please name any agencies selected above. [facility] * Additional services required to return to the preadmission environment? Yes * Can the patient safely return to the preadmission environment? Yes * Has this patient been hospitalized within the prior 30 days at any hospital? No Coverage Notice Reviewer: [id number] Corey Mccain Notice Issued Date-Time: 06/14/2020 12:02 Notice Type: IM Discharge Notice Notice Delivered To: Family Member Relationship to Patient: Spouse [employer] Supervisor Name: EMIL CONSTANTINO Delivery Method: MAIL - Mail Melissa Days: Prior Verbal Notification: Recipient Understood Notice: Yes Recipient Signature: Yes Med Rec Note Co-signed by Attending: Coverage Notice Comment: DC IMM telephonically explained, signed, and placed on chart per current Isolation protocols Reviewer: [id number] Corey Mccain Notice Issued Date-Time: 06/14/2020 12:02 Notice Type: Patient Choice Letter Notice Delivered To: Family Member Relationship to Patient: Spouse [employer] Supervisor Name: Emil Constantino Delivery Method: MAIL - Mail Melissa Days: Prior Verbal Notification: Recipient Understood Notice: Yes Recipient Signature: Yes Med Rec Note Co-signed by Attending: Coverage [facility] Last DP export: 06/14/20 12:28 p Patient Name: ELVIN CONSTANTINO Page [phone] at 0823 All edits/amendments must be made on the electronic document DICTATION DATE: 06/15/20822 SIGNS AND DISPLAYS SALES REPRESENTATIVE: KEVIN 06/15/20822 RPT#: [id number] DC DATE:06/14/20 STATUS: DIS IN [facility] [address] [place] [address] END OF REPORT
== END 2020-06-14 23:22 | DRG 291 ==
LOC: D.ER 10:47 → D.M2 14:57 → D.SDCHOLD 06-11 16:54 → D.M2 06-11 16:56
PROVIDERS: Family Medicine; ADMIT Family Medicine; ATTEND Family Medicine
PROC: 5A09457 Assistance with Respiratory Ventilation, 24-96 Consecutive Hours, Continuous Positive Airway Pressure (ICD-10-PCS; principal; 2020-06-09)
DX: I11.0 Hypertensive heart disease with heart failure (principal); G93.41 Metabolic encephalopathy; J96.21 Acute and chronic respiratory failure with hypoxia; J96.22 Acute and chronic respiratory failure with hypercapnia; I50.33 Acute on chronic diastolic (congestive) heart failure; J44.9 Chronic obstructive pulmonary disease, unspecified; K21.9 Gastro-esophageal reflux disease without esophagitis; K44.9 Diaphragmatic hernia without obstruction or gangrene; I27.20 Pulmonary hypertension, unspecified; K57.90 Diverticulosis of intestine, part unspecified, without perforation or abscess without bleeding; M41.9 Scoliosis, unspecified; I48.91 Unspecified atrial fibrillation; I25.10 Atherosclerotic heart disease of native coronary artery without angina pectoris; Z66 Do not resuscitate; I95.9 Hypotension, unspecified; D64.9 Anemia, unspecified